=== PATIENT | male | born 1960 | race Caucasian/White ===

== ENCOUNTER → 2023-12-21 12:59 | Outpatient (REF) | payer OTHER, SELFPAY ==
[2023-12-21 13:09] VITALS: BP 148/78; BP_SYST 94
[2023-12-21 13:43] VITALS: BP 137/67
== END ==
LOC: RADI 12:59
PROVIDERS: ATTENDING PHYSICIAN Radiology Diagnostic Radiology; FAMILY PHYSICIAN Surgery
DX: Z43.6 Encounter for attention to other artificial openings of urinary tract (principal); N13.5 Crossing vessel and stricture of ureter without hydronephrosis
CPT/HCPCS: 50435; C1729; C1769

== ENCOUNTER → 2024-04-09 13:40 | Outpatient (REF) | payer OTHER, SELFPAY ==
[2024-04-09 14:08] VITALS: BP 136/68; BP_SYST 97
== END ==
LOC: RADI 13:40
PROVIDERS: ATTENDING PHYSICIAN Radiology Vascular & Interventional Radiology; FAMILY PHYSICIAN Family Medicine
DX: Z43.6 Encounter for attention to other artificial openings of urinary tract (principal); N13.5 Crossing vessel and stricture of ureter without hydronephrosis
CPT/HCPCS: 50435; C1729; C1769

== ENCOUNTER 2024-05-22 21:46 | Inpatient (IN) | payer OTHER, SELFPAY ==
[2024-05-22] VITALS (10 sets, daily range): BP systolic 111–179; BP diastolic 63–83; BMI 27.8; BMI 27.6
--- NOTE | 2024-05-22 14:18 | ED.GENMED ---
ED Provider Triage
<Giovana Arreola PA-C - Last Filed: 05/22/24 14:25>
-
Patient seen by provider in Triage?: Seen in Triage
Attestation: A medical screening examination has been initiated by a qualified medical provider. Based on the assessment performed at this time, it has been determined that an emergent medical condition may exist and the patient has been informed
that further medical evaluation and possible additional diagnostic testing may be needed.
HPI: 64yoM here with abdominal pain. Started at 2pm yesterday afternoon. Last BM 3 days ago. Vomiting 3-4x this morning. Believes he may have a bowel obstruction. Has a nephrostomy tube, output has been clear. Hx of rectal cancer s/p multiple colon
surgeries and colostomy placement. Hx of appendectomy.
GENERAL: Alert , in no apparent distress
EYE: No visual abnormalities.
NECK: Trachea midline
ENT: No visible abnormalities.
LUNGS: No acute respiratory distress
NEUROLOGICAL: Alert and oriented
SKIN: Skin intact. No visible changes.
MUSCULOSKELETAL: Moving extremities normally
PSYCH: Normal and appropriate interaction.
This is a medical evaluation conducted in person to initiate diagnostic evaluation and provide initial therapeutics. Please see further documentation by the treating clinician.
Temp is 103.1 here. Abdominal labs, lactate, and CT abdomen with IV/PO contrast ordered.
History of Present Illness
<Giovana Arreola PA-C - Last Filed: 05/22/24 14:25>
General
Chief Complaint: Abdominal Pain
Time Seen by Provider: 05/22/24 14:43
<Natasha Johnson NP - Last Filed: 05/22/24 22:04>
General
Source: patient
Exam Limitations: none
Nursing documentation reviewed up to this point in time: agreed with
History of Present Illness
History of Present Illness:
64-year-old male with history of A-fib with ablation, not anticoagulated, HTN, HLD, L nephrostomy tube (from radiation tx's damaging kidney/ureters), colostomy (rectal CA 1992), bowel obstruction 10 yrs ago, presents stating he had 04/10 abdominal
pain 2 p.m. yesterday for about an hour, took Dulcolax, no BM since. Last BM 3 days ago. Vomited once this a.m., fever 104 this a.m. and fast heart rate. Pain has subsided to now 10. Feels 'a little' nauseous but has chronic nausea and took Zofran
today 10 a.m.
Past History
<Giovana Arreola PA-C - Last Filed: 05/22/24 14:25>
Past History
ED Past Medical History: Asthma, Cancer (Colorectal CA, Prostate CA), HTN, Hypercholesterolemia and Other (Urinary retention, Self caths)
ED Past Surgical History: Appendectomy, Bowel resection (1993, Dr. Covarrubias at [facility]) and Other (Colostomy)
Social History
Tobacco: Non-smoker
Alcohol: Occasional
Drug: None
Personal:
Living: with family
Review of Systems
<Natasha Johnson [employer] - Last Filed: 05/22/24 22:04>
Review of Systems
Allergies reviewed?: Yes
All Other Systems: ROS reviewed and negative except as documented in HPI and ROS
Constitutional: Reports fever; Denies chills
EENT: Denies sore throat
Respiratory: Denies trouble breathing
Cardiac: Denies chest pain
ABD/GI: Reports abdominal pain, nausea, vomiting and constipated; Denies diarrhea
: Reports other (L nephrostomy draining well)
Musculoskeletal: Reports no symptoms
Skin: Reports no symptoms
Neurological: Reports no symptoms
Phy Exam
<Natasha Johnson [employer] - Last Filed: 05/22/24 22:04>
Physical Exam
Physical Exam:
GENERAL: No acute distress. A&Ox3.
CONSTITUTIONAL: Afebrile.
EYES: PERRL, conjunctivae normal
Neck: Supple
ENMT: moist mucus membranes, Pharynx nl
RESPIRATORY: Regular respirations, nonlabored, lungs clear.
CARDIOVASCULAR: Regular rate and rhythm, no murmurs, no rubs.
GI: Soft, mildly tender RLQ, hypoactive BS, colostomy with no stool.
: Nephrostomy draining jr urine
MUSCULOSKELETAL: Moves with ease. Well perfused. No edema
SKIN: Warm, dry, pink
PSYCH: Normal mood and affect. Well kept, interactive and appropriate
NEUROLOGIC: Awake, alert and oriented. No focal neurological deficits
Sepsis
<Giovana Arreola PA-C - Last Filed: 05/22/24 14:25>
Sepsis Screen
Sepsis Screen: Possible Sepsis
Date: 05/22/24
Time: 14:18
<Natasha Johnson [employer] - Last Filed: 05/22/24 22:04>
Sepsis Screening
Sepsis Assessment: Sepsis Ruled Out (SIRS)
Sepsis Screen
Sepsis Screen: Sepsis Ruled Out
Date: 05/22/24
Time: 22:04
Course
<Giovana Arreola PA-C - Last Filed: 05/22/24 14:25>
Orders/Labs/Results
Orders:
Orders
05/22/24 13:57
Electrocardiogram (*1) Urgent
Reason for Study: Abnormal EKG
EKG- Treatment ONCE
05/22/24 14:12
CR Chest - 2 Views Urgent
Comment:
Reason For Exam: suspected infection
05/22/24 14:20
Complete Blood Count/With Diff Urgent
Comprehensive Metabolic Panel Urgent
Lactic Acid Q4H
Comment: ON ICE, CANCEL 2ND ORDER IF FIRST LACTIC ACID LEVEL <2
Lipase Urgent
05/22/24 14:21
Iohexol [Omnipaque] See Protocol PO NOW STA
05/22/24 14:56
0.9% Sodium Chloride 1000 ml [Nss] 1,000 ml IV BOLUS
05/22/24 15:00
Acetaminophen [Tylenol] 1,000 mg PO NOW STA
05/22/24 15:23
Blood Culture Urgent
SHAYY Source: Blood/Venous
Specimen Description:
05/22/24 15:51
CT Abd/pel Without Iv Or Oral Urgent
Comment:
Reason For Exam: abd pain RLQ, colostomy, nephrostomy, hx obstructi
05/22/24 18:03
Blood Culture Urgent
SHAYY Source: Blood/Venous
Specimen Description:
05/22/24 19:18
Ondansetron Injectable [Zofran] 8 mg IV NOW STA
05/22/24 19:40
Urinalysis Reflex To Culture Urgent
Date Specimen was Collected: 05/22/24
Time Specimen was Collected: 19:32
Comment: pt. has nephrostomy, captured from exit pt. from pt. body, that's why small
Urine Microscopic Reflex Cult Urgent
Urine Culture Urgent
SHAYY Source: U
Specimen Description:
Date Specimen was Collected: 05/22/24
Time Specimen was Collected: 19:32
05/22/24 20:19
CefTRIAXone [Rocephin] 1,000 mg IV NOW STA
05/22/24 21:17
Admit/Transfer Patient As Directed
Co-Sign Provider:
Level of Care: Inpatient admission
Assign to:: Medical/Surgical
Physician / Group: helio
Diagnosis: pyelonehritis
Reason for Hospitalization: pyelonehritis
Expected length of stay greater than two midnights?: Yes
ELOS- Estimated Length of Stay in days: 2
I certify the patient meets the requirements for IP care: Yes
Code Status As Directed
Resuscitation Status: Full Code
PRN Pain Medication Management As Directed
May give lesser potent ordered pain med per pt: Yes
preference::
Protocol:: Medication orders for pain may be administered in a
manner that supports deferring to patient preference
when the pt is:
- Requesting an ordered lesser potent pain medication.
Least to most potent pain medications are defined
as: acetaminophen < NSAID < tramadol < opioids
(morphine, oxycodone, hydromorphone).
- Requesting a lesser dose of the same medication IF
ORDERED.
- Requesting a less intrusive route of administration
if both routes are prescribed by the provider (PO <
IV).
Abnormal Lab Results
05/22/24 05/22/24
14:20 19:40
WBC 21.7 H 10^3/uL
(4.8-10.8)
RBC 3.84 L 10^6/uL
(4.70-6.10)
Hgb 10.3 L g/dL
(13.0-18.0)
Hct 31.8 L %
(39.0-52.0)
MCH 26.8 L pg
(27.0-31.0)
MCHC 32.4 L g/dL
(33.0-37.0)
RDW 14.9 H %
(11.5-14.5)
Abs Immat Gran (auto) 0.2 H 10^3/uL
(0-0.05)
Absolute Neuts (auto) 18.9 H 10^3/uL
(1.4-6.5)
Absolute Lymphs (auto) 0.8 L 10^3/uL
(1.2-3.4)
Absolute Monos (auto) 1.8 H 10^3/uL
(0.1-0.6)
Immature Gran % 0.7 H %
(0-0.5)
Neutrophils % 87.3 H %
(42.2-75.2)
Lymphocytes % 3.6 L %
(20.5-51.1)
Potassium 5.3 H mmol/L
(3.5-5.1)
BUN 36 H mg/dl
(9-20)
Creatinine 2.1 H mg/dL
(0.7-1.3)
Glucose 168 H mg/dl
(70-99)
Ur Occult Blood Reflex 4+ A
(Negative)
Leukocyte Esterase Rfl 2+ A
(Negative)
Urine RBC 3-6 A /HPF
(0-2)
Urine WBC (Reflex) 11-15 A /HPF
(0-5)
Urine Bacteria (Reflex) Few A
(Negative)
Urine Albumin (Reflex) 2+ A
(Neg - Trace)
05/22/24 14:20
05/22/24 14:20
Vital Signs
Initial and Last Documented VS:
Initial Vital Signs
Temp Pulse Resp BP Pulse Ox
103.1 F H 96 16 134/76 90
05/22/24 14:07 05/22/24 14:07 05/22/24 14:07 05/22/24 14:07 05/22/24 14:07
Last Documented Vital Signs
Temp Pulse Resp BP Pulse Ox
98.4 F 75 13 123/64 95
05/22/24 19:30 05/22/24 20:00 05/22/24 20:00 05/22/24 20:00 05/22/24 20:00
<Natasha Johnson, [employer] - Last Filed: 05/22/24 22:04>
Orders/Labs/Results
Orders:
Orders
05/22/24 13:57
Electrocardiogram (*1) Urgent
Reason for Study: Abnormal EKG
EKG- Treatment ONCE
05/22/24 14:12
CR Chest - 2 Views Urgent
Comment:
Reason For Exam: suspected infection
05/22/24 14:20
Complete Blood Count/With Diff Urgent
Comprehensive Metabolic Panel Urgent
Lactic Acid Q4H
Comment: ON ICE, CANCEL 2ND ORDER IF FIRST LACTIC ACID LEVEL <2
Lipase Urgent
05/22/24 14:21
Iohexol [Omnipaque] See Protocol PO NOW STA
05/22/24 14:56
0.9% Sodium Chloride 1000 ml [Nss] 1,000 ml IV BOLUS
05/22/24 15:00
Acetaminophen [Tylenol] 1,000 mg PO NOW STA
05/22/24 15:23
Blood Culture Urgent
SHAYY Source: Blood/Venous
Specimen Description:
05/22/24 15:51
CT Abd/pel Without Iv Or Oral Urgent
Comment:
Reason For Exam: abd pain RLQ, colostomy, nephrostomy, hx obstructi
05/22/24 18:03
Blood Culture Urgent
SHAYY Source: Blood/Venous
Specimen Description:
05/22/24 19:18
Ondansetron Injectable [Zofran] 8 mg IV NOW STA
05/22/24 19:40
Urinalysis Reflex To Culture Urgent
Date Specimen was Collected: 05/22/24
Time Specimen was Collected: 19:32
Comment: pt. has nephrostomy, captured from exit pt. from pt. body, that's why small
Urine Microscopic Reflex Cult Urgent
Urine Culture Urgent
SHAYY Source: U
Specimen Description:
Date Specimen was Collected: 05/22/24
Time Specimen was Collected: 19:32
05/22/24 20:19
CefTRIAXone [Rocephin] 1,000 mg IV NOW STA
05/22/24 21:17
Admit/Transfer Patient As Directed
Co-Sign Provider:
Level of Care: Inpatient admission
Assign to:: Medical/Surgical
Physician / Group: helio
Diagnosis: pyelonehritis
Reason for Hospitalization: pyelonehritis
Expected length of stay greater than two midnights?: Yes
ELOS- Estimated Length of Stay in days: 2
I certify the patient meets the requirements for IP care: Yes
Code Status As Directed
Resuscitation Status: Full Code
PRN Pain Medication Management As Directed
May give lesser potent ordered pain med per pt: Yes
preference::
Protocol:: Medication orders for pain may be administered in a
manner that supports deferring to patient preference
when the pt is:
- Requesting an ordered lesser potent pain medication.
Least to most potent pain medications are defined
as: acetaminophen < NSAID < tramadol < opioids
(morphine, oxycodone, hydromorphone).
- Requesting a lesser dose of the same medication IF
ORDERED.
- Requesting a less intrusive route of administration
if both routes are prescribed by the provider (PO <
IV).
Abnormal Lab Results
05/22/24 05/22/24
14:20 19:40
WBC 21.7 H 10^3/uL
(4.8-10.8)
RBC 3.84 L 10^6/uL
(4.70-6.10)
Hgb 10.3 L g/dL
(13.0-18.0)
Hct 31.8 L %
(39.0-52.0)
MCH 26.8 L pg
(27.0-31.0)
MCHC 32.4 L g/dL
(33.0-37.0)
RDW 14.9 H %
(11.5-14.5)
Abs Immat Gran (auto) 0.2 H 10^3/uL
(0-0.05)
Absolute Neuts (auto) 18.9 H 10^3/uL
(1.4-6.5)
Absolute Lymphs (auto) 0.8 L 10^3/uL
(1.2-3.4)
Absolute Monos (auto) 1.8 H 10^3/uL
(0.1-0.6)
Immature Gran % 0.7 H %
(0-0.5)
Neutrophils % 87.3 H %
(42.2-75.2)
Lymphocytes % 3.6 L %
(20.5-51.1)
Potassium 5.3 H mmol/L
(3.5-5.1)
BUN 36 H mg/dl
(9-20)
Creatinine 2.1 H mg/dL
(0.7-1.3)
Glucose 168 H mg/dl
(70-99)
Ur Occult Blood Reflex 4+ A
(Negative)
Leukocyte Esterase Rfl 2+ A
(Negative)
Urine RBC 3-6 A /HPF
(0-2)
Urine WBC (Reflex) 11-15 A /HPF
(0-5)
Urine Bacteria (Reflex) Few A
(Negative)
Urine Albumin (Reflex) 2+ A
(Neg - Trace)
05/22/24 14:20
05/22/24 14:20
Vital Signs
Initial and Last Documented VS:
Initial Vital Signs
Temp Pulse Resp BP Pulse Ox
103.1 F H 96 16 134/76 90
05/22/24 14:07 05/22/24 14:07 05/22/24 14:07 05/22/24 14:07 05/22/24 14:07
Last Documented Vital Signs
Temp Pulse Resp BP Pulse Ox
98.4 F 75 13 123/64 95
05/22/24 19:30 05/22/24 20:00 05/22/24 20:00 05/22/24 20:00 05/22/24 20:00
<Natashahilda Johnson NP - Last Filed: 05/22/24 22:04>
MDM/Problems Addressed
Differential Diagnosis Includes:
bowel obstruction, SIRS,
kidney stone, UTI
MDM/Problems Addressed:
64-year-old male with history of A-fib with ablation, not anticoagulated, HTN, HLD, L nephrostomy tube (from radiation tx's damaging kidney/ureters), colostomy (rectal CA 1992), bowel obstruction 10 yrs ago, presents stating he had /10 abdominal
pain 2 p.m. yesterday for about an hour, took Dulcolax, no BM since. Last BM 3 days ago. Vomited once this a.m., fever 104 this a.m. and fast heart rate. Pain has subsided to now 3/10. Feels 'a little' nauseous but has chronic nausea and took Zofran
today 10 a.m.
Temp 103.1 HR 96
Alert, NAD
CBC: WBC 21.7 w elevated neutrophils
CMP: BUN/creat 36/2.[address] abdomen pelvis changed to p.o. contrast only due to kidney functions. IV fluids infusing.
CXR NAD
5:50 [address]
Pt [address] to CT scan
CT scan radiology report read: IMPRESSION:
There is moderate right-sided hydroureteronephrosis extending to the level of the presacral soft tissue/scarring. There is no obstructing stone visualized.
Left sided percutaneous nephrostomy with tip in the inferior calyx. No left sided hydronephrosis.
Distended gallbladder without CT findings of acute cholecystitis.
Pt prefers to void for U/A he does not want us to use his nephrostomy bag urine
He is unable to void
Bladder scan shows minimal urine in bladder.
7:30 p.m.
Urine obtained from proximal nephrostomy tube and sent
8:20 p.m.
Defervesced T 98.4
Pain free
U/A with RBCs
Plan: Admit: most likely passed kidney stone. Acute renal Insufficiency, SIRS, IV antibiotics
Hospitalist notified of admission.
Case discussed with Dr. Rabago who agrees with assessment and plan
<Natasha Johnson NP - Last Filed: 05/22/24 22:04>
*Critical Care Note
Total Time (30-74mins, 75-104mins- exclusive of procedures): Not Applicable
ED Attending Note
<Giovana Arreola PA-C - Last Filed: 05/22/24 14:25>
-
Portions of this chart may have been created with voice recognition software.� Occasional wrong word or��sound alike� substitutions may have occurred due to the inherent limitations of voice recognition software.
Discharge Plan
Departure
Patient Disposition: Admit
Date of Disposition: 05/22/24
Time of Disposition: 20:23
Admit to: Med/Surg
Presentation/result/management discussed w/ accepting MD/DO: Hospitalist
Condition: Good
Discharge Problem:
SIRS (systemic inflammatory response syndrome), Hydronephrosis of right kidney, Acute kidney insufficiency
Interventions
Interventions:
*Risk Screen - Suicide Last Done: 05/22/24 14:07
*General Assessment Last Done: 05/22/24 14:07
*Neglect/Abuse Screening Last Done: 05/22/24 14:07
ED- Fall Risk Assessment Last Done: 05/22/24 16:05
GK-Ejgxpj-Anphurxlxg Assessment Last Done: 05/22/24 16:02
[2024-05-22 14:32] LABS: % Basophils 0.2 % (0-2); % Immature Granulocytes 0.7 % (0-0.5); % Lymphocytes 3.6 % (20.5-51.1); % Monocytes 8.2 % (1.7-9.3); % Neutrophils 87.3 % (42.2-75.2); Absolute Immature Granulocytes 0.2 10^3/uL (0-0.05); Absolute Lymphocytes 0.8 10^3/uL (1.2-3.4); Absolute Monocytes 1.8 10^3/uL (0.1-0.6); Absolute Neutrophils 18.9 10^3/uL (1.4-6.5); Hematocrit 31.8 % (39.0-52.0); Hemoglobin 10.3 g/dL (13.0-18.0); Mean Corp Hgb Conc. 32.4 g/dL (33.0-37.0); Mean Corpuscular Hgb 26.8 pg (27.0-31.0); Mean Corpuscular Volume 82.8 fL (80.0-94.0); Nucleated Red Blood Cells % 0 % (-); Platelet Count 205 10^3/uL (130-400); Red Blood Cell Count 3.84 10^6/uL (4.70-6.10); Red Cell Dist. Width 14.9 % (11.5-14.5); White Blood Cell Count 21.7 10^3/uL (4.8-10.8)
[2024-05-22 14:44] LABS: Lactic Acid 1.3 mmol/L (0.7-2.0)
[2024-05-22 14:51] LABS: ALT (SGPT) 16 U/L (0-50); AST (SGOT) 19 U/L (17-59); Albumin 4.1 g/dl (3.5-5.0); Alkaline Phosphatase 96 U/L (38-126); Blood Urea Nitrogen 36 mg/dl (9-20); Calcium 9.3 mg/dl (8.4-10.2); Carbon Dioxide 24 mmol/L (22-30); Chloride 98 mmol/L (98-107); Estimated Creatinine Clearance 38 ml/min; Glucose 168 mg/dl (70-99); Potassium 5.3 mmol/L (3.5-5.1); Sodium 136 mmol/L (135-145); Total Bilirubin 0.9 mg/dl (0.2-1.3); Total Protein 7.9 g/dl (6.3-8.2); eGFR 34.29
[2024-05-22] MEDS: OMNIPAQUE 50 ML PO (15:06)
[2024-05-22] MEDS: TYLENOL 1000 MG PO (15:08)
[2024-05-22 15:16] LABS: Lipase 47 U/L (23-300)
[2024-05-22] MEDS: NSS 1000 IV ×2 (15:21→23:09)
[2024-05-22] MEDS: ZOFRAN 8 MG IV (19:34)
[2024-05-22 19:58] LABS: Urine Albumin 2+ (Neg - Trace); Urine Bilirubin Negative (Negative); Urine Character Clear (Clear); Urine Color Yellow; Urine Glucose Negative (Negative); Urine Ketone Negative (Negative); Urine Leukocyte 2+ (Negative); Urine Nitrite Negative (Negative); Urine Occult Blood 4+ (Negative); Urine Urobilinogen Negative (Neg - 1+)
[2024-05-22 20:17] LABS: Urine Bacteria Few (Negative)
[2024-05-22] MEDS: ROCEPHIN 1000 MG IV (20:20)
--- NOTE | 2024-05-22 21:21 | HPS.HSE ---
Addendum entered and electronically signed by Ann Marie Marsh MD 05/22/24 21:51:
Urology recommends checking UA from penis.
Original Note:
Family Physician
-
Family Physician: Jackie Toro
Chief Complaint
-
fever
History of Present Illness
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
with left nephrostomy tube, atrial fibrillation status post ablation, hypertension, anemia, asthma presenting with right lower quadrant abdominal pain starting yesterday afternoon. He denies radiation to the back or groin. He denies history of
kidney stones. He has fevers and chills. He had 3-4 episodes of vomiting this morning. Output from nephrostomy tube has been clear. He has not had stool from colostomy in 3 days which is normal for him. He reports that urine from the penis has
been cloudy.
He denies chest pain or shortness of breath.
Denies smoking or alcohol use.
Medical History
Past Medical History
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
left nephrostomy tube, atrial fibrillation status post ablation, hypertension, anemia, a)
Past Surgical History: Reports Other ( Appendectomy, Bowel resection (1993, Dr. Covarrubias at [facility]) and Other (Colostomy))
Social History
Tobacco: Non-smoker
Alcohol: None
Drug: None
Family History
Family History: Not pertinent
Allergies / Home Medications
Allergies reflects when Allergies were last updated in [facility].
Home Medications with original date entered in [facility]
Allergy/Medication List:
Allergies
Allergy/AdvReac Type Severity Reaction Status Date / Time
wheat Allergy Unknown Shortness Verified 05/22/24 14:07
of Breath
Beef Containing Products Allergy Unknown Verified 05/22/24 14:07
grass pollen Allergy Unknown Verified 05/22/24 14:07
ibuprofen [Ibuprofen] Allergy BLEEDING Verified 05/22/24 14:07
mold Allergy Unknown Verified 05/22/24 14:07
Home Medications
polyethylene glycol 3350 17 gram oral powder packet 17 grams PO BIDPRN PRN constipation 05/02/21
albuterol sulfate 90 mcg/actuation aerosol inhaler (Ventolin HFA) 1 puff inhalation Q6HPRN PRN SOB 08/06/21
oxycodone-acetaminophen 10 mg-325 mg tablet 1 tab PO Q8HPRN PRN severe pain 12/07/22
amitriptyline 10 mg tablet 10 mg PO HSPRN PRN depression 05/22/24
cholecalciferol (vitamin D3) 50 mcg (2,000 unit) tablet (Vitamin D3) 50 mcg PO DAILY 05/22/24
lactulose 10 gram/15 mL oral solution 10 g PO DAILYPRN PRN constipation 05/22/24
magnesium hydroxide 400 mg/5 mL oral suspension (Dulcolax (magnesium hydroxide)) 400 mg PO Q4HPRN PRN constipation 05/22/24
metoprolol tartrate 25 mg tablet 25 mg PO DAILYPRN PRN heartrate 05/22/24
ondansetron 8 mg disintegrating tablet 16 mg PO [id number] PRN nausea 05/22/24
oxycodone 40 mg tablet,crush resistant,extended release 12 hr (OxyContin) 40 mg PO BID 05/22/24
therapeutic multivitamin 1 tab PO DAILYPRN PRN supplement 05/22/24
Review of Systems
-
History Source: Patient
A 12 point ROS was completed and negative except as noted: Yes
Constitutional: Reports No Symptoms
EENT: Reports No Symptoms
Respiratory: Reports No Symptoms
Cardiac: Reports No Symptoms
Abdomen/GI: Reports No Symptoms
: Reports See HPI
Musculoskeletal: Reports No Symptoms
Skin: Reports No Symptoms
Neurological: Reports No Symptoms
Endocrine: Reports No Symptoms
Hematologic/Lymphatic: Reports No Symptoms
Psych: Reports No Symptoms
Physical Exam
Vital Signs
Vital Signs
Temp Pulse Resp BP Pulse Ox
98.4 F 75 13 123/64 95
05/22/24 19:30 05/22/24 20:00 05/22/24 20:00 05/22/24 20:00 05/22/24 20:00
Physical Exam
General: Well Developed, Well Nourished and No Apparent Distress
HEENT: NormoCephalic, Moist mucous membranes and Atraumatic
Respiratory: Clear
Cardiac: S1/S2 and Regular Rhythm; No Murmur or Rub
GI: Soft, Non Tender, Non Distended and Normal Bowel Sounds; No Organomegaly
Rectal: Deferred by Provider
Genito-urinary: Other (RLQ tenderness )
Musculoskeletal: No Clubbing, No Cyanosis and No Edema
Skin: No Rash
Neuro: Nonfocal/grossly intact
Laboratory Results
-
05/22/24 14:20
05/22/24 14:20
Laboratory Results
Lactic Acid Cancelled 05/22/24 18:15
Total Bilirubin 0.9 mg/dl (0.2-1.3) 05/22/24 14:20
AST 19 U/L (17-59) 05/22/24 14:20
ALT 16 U/L (0-50) 05/22/24 14:20
Alkaline Phosphatase 96 U/L (38-126) 05/22/24 14:20
Lipase 47 U/L (23-300) 05/22/24 14:20
Data Reviewed
-
Lab Data: Labs Reviewed by me
Old Records: Reviewed
Impression/Plan
-
IMPRESSION:
PLAN:
# Sepsis (fever, tachycardia, leukocytosis) secondary to right-sided pyelonephritis/possible passed right-sided ureteral stone
-CT abdomen pelvis shows moderate right-sided hydroureteronephrosis extending to the level of the presacral soft tissue/scarring without obstructing stone
-Urinalysis from left nephrostomy tube shows 11-15 WBC, +2 leukocyte Estrace
-Check blood cultures
-IV fluids
-Ceftriaxone
-Urology consulted
# Acute kidney injury secondary to prerenal/sepsis
# Hyperkalemia
-Creatinine of 2.1
-IV fluids
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
-He does not appear to to have infection of the left urinary tract
Colorectal cancer status post colectomy with colostomy
Chronic pain
-Continue Percocet
Constipation
-Continue MiraLAX
Atrial fibrillation status post ablation
-Continue metoprolol
Essential hypertension
Chronic anemia
Asthma
-Continue albuterol
Anxiety/depression
-Continue amitriptyline
Full code
DVT prophylaxis�heparin
Regular diet
--- NOTE | 2024-05-22 23:00 | PTCARENOTE ---
Patient arrived from the ED via stretcher. Patient ambulated into the room. AAOx3, VSS. Pressure elevated, temperature orally 103.0 F. Given Tylenol for fever. Patient c/o RLQ abdominal pain. Given PRN pain medication, see MAR. Patient oriented to
the room, call niño is within reach.
[2024-05-22] MEDS: DILAUDID 0.5 MG IV (23:09)
[2024-05-22] MEDS: ELAVIL 10 MG PO (23:09)
[2024-05-22] MEDS: TYLENOL 650 MG PO (23:09)
[2024-05-23] VITALS (12 sets, daily range): BP systolic 84–217; BP diastolic 59–93
[2024-05-23] MEDS: DILAUDID 0.5 MG IV ×3 (03:11→13:45)
[2024-05-23 03:58] LABS: Urine Albumin 3+ (Neg - Trace); Urine Bilirubin Negative (Negative); Urine Character Very Cloudy (Clear); Urine Glucose Negative (Negative); Urine Ketone 1+ (Negative); Urine Leukocyte 2+ (Negative); Urine Nitrite Negative (Negative); Urine Occult Blood 3+ (Negative); Urine Specific Gravity 1.015 (<1.030); Urine Urobilinogen Negative (Neg - 1+)
[2024-05-23 04:04] LABS: Urine Color Brown
[2024-05-23 04:11] LABS: Urine Bacteria Many (Negative); Urine White Cell >100 /HPF (0-5)
[2024-05-23] MEDS: ROXICODONE 10 MG PO ×2 (04:47→14:41)
[2024-05-23] MEDS: TYLENOL 325 MG PO ×2 (04:47→14:41)
[2024-05-23] MEDS: HEPARIN 5000 UNITS SC ×2 (07:42→21:56)
[2024-05-23] MEDS: OXYCONTIN (CONTROLLED RELEASE) 40 MG PO ×2 (07:43→21:56)
[2024-05-23] MEDS: VITAMIN D3 (cholecalciferol) 50 MCG PO (07:43)
--- NOTE | 2024-05-23 08:03 | W.PN.HOSP.TC ---
Today's Communication/Plan
-
Continue antibiotics, follow cultures, for right PCN tube placement soon by IR
Assessment / Plan
Assessment / Plan
Physical Exam
General: Well Developed, Well Nourished and No Apparent Distress
HEENT: Normocephalic, Moist mucous membranes
Respiratory: Clear
Cardiac: S1/S2 and Regular Rhythm
GI: Soft, Non Tender, Non Distended and Normal Bowel Sounds
Genito-urinary: No CVA tenderness
Musculoskeletal: No Cyanosis and No Edema
Skin: Warm. Dry.
Neuro: Nonfocal/grossly intact
Assessment/Plan
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
nephrostomy tube, here for sepsis secondary to presumed pyelonephritis of right kidney. CT imaging showed right hydroureteronephrosis without obstructing stone presumably passed stone. IV fluids, blood culture, urine culture, ceftriaxone, urology
consulted.
#Sepsis (fever, tachycardia, leukocytosis) secondary to right-sided pyelonephritis/possible passed right-sided ureteral stone
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
#Significant Right Renal Obstruction
-CT abdomen pelvis showed moderate right-sided hydroureteronephrosis extending to the level of the presacral soft tissue/scarring without obstructing stone
-Urinalysis from left nephrostomy tube shows 11-15 WBC, +2 leukocyte Estrace
-Follow blood and urine cultures
-IV fluids
-Continue Ceftriaxone
-Urology consulted, appreciate their evaluation and recommendations
-IR consulted, awaiting right PCN placement
# Acute kidney injury secondary to right-sided renal obstruction/sepsis
# Hyperkalemia
-Creatinine of 2.1-->2.4
-IV fluids
-PCN placement to be done as above
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
Colorectal cancer status post colectomy with colostomy
Chronic pain
-Continue Percocet
Constipation
-Continue MiraLAX
Atrial fibrillation status post ablation
-Continue metoprolol
Essential hypertension
Chronic anemia
Asthma
-Continue albuterol
Anxiety/depression
-Continue amitriptyline
Full code
DVT prophylaxis�Heparin
Regular diet
Anticipated Discharge: 24 - 48 hours
Subjective/Interval History
-
Date of Service: May 23, 2024
Patient was seen and examined. He reported feeling 'lousy' according to him, denied any other new significant complaints.
Objective Data
-
Labs:
Laboratory Results
05/23/24
07:23
WBC Pending
Hgb Pending
Hct Pending
Plt Count Pending
Sodium Pending
Potassium Pending
Chloride Pending
Carbon Dioxide Pending
BUN Pending
Creatinine Pending
Glucose Pending
Calcium Pending
Total Bilirubin Pending
AST Pending
ALT Pending
Alkaline Phosphatase Pending
Vital Signs:
Vital Signs
Temp Pulse Resp BP Pulse Ox
99.2 F 90 18 156/70 93
05/23/24 07:57 05/23/24 07:57 05/23/24 07:57 05/23/24 07:57 05/23/24 07:57
I&O
05/22/24 05/23/24 05/24/24
06:59 06:59 06:59
Intake Total 1280 / 1280
Output Total 420 / 420
Balance 860 / 860
[2024-05-23 08:40] LABS: % Basophils 0.1 % (0-2); % Immature Granulocytes 0.6 % (0-0.5); % Monocytes 11.4 % (1.7-9.3); % Neutrophils 81.9 % (42.2-75.2); Absolute Immature Granulocytes 0.1 10^3/uL (0-0.05); Absolute Lymphocytes 0.8 10^3/uL (1.2-3.4); Absolute Monocytes 1.6 10^3/uL (0.1-0.6); Absolute Neutrophils 11.2 10^3/uL (1.4-6.5); Hematocrit 28.2 % (39.0-52.0); Hemoglobin 9.1 g/dL (13.0-18.0); Mean Corp Hgb Conc. 32.3 g/dL (33.0-37.0); Mean Corpuscular Hgb 27.7 pg (27.0-31.0); Mean Corpuscular Volume 85.7 fL (80.0-94.0); Nucleated Red Blood Cells % 0 % (-); Red Blood Cell Count 3.29 10^6/uL (4.70-6.10); Red Cell Dist. Width 15.3 % (11.5-14.5); White Blood Cell Count 13.7 10^3/uL (4.8-10.8)
[2024-05-23] MEDS: NSS 1000 IV ×2 (08:55→20:56)
--- NOTE | 2024-05-23 08:55 | CONS.URO ---
Consultation
-
Performing Provider: Peffer
Reason for Consultation: Hydronephrosis, sepsis
Medical History
History of Present Illness
The patient is a 61-year-old male with
a complex prior urologic and oncologic history. He has a history of
colon cancer, status post colectomy and colostomy around 18 years ago,
history of prostate cancer, status post aborted radical
prostatectomy at [facility], subsequently treated with radiation, history
of urinary retention and left hydronephrosis, status post
transurethral resection of prostate following radiation treatment,
now with chronic incontinence and chronic left
hydronephrosis/ureteral obstruction in 2020
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
stable on imaging studies for past several years and no evidence of prostate cancer recurrence
Since 2020 has had indwelling L ureteral stent for obstruction of the L distal ureter
Was found to be a poor candidate for ureteral reconstruction with consultation with Dr. Rose at [facility]
He is now presenting with R abdominal pain for 2 days, developed fevers and chills
He denies radiation to the back or groin
He had 3-4 episodes of vomiting this morning.
Output from nephrostomy tube has been clear. He has not had stool from colostomy in 3 days which is normal for him.
He reports that urine from the penis has been cloudy, thick, and significantly lower volume than normal
Past Medical History
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
nephrostomy tube, atrial fibrillation status post ablation, hypertension, anemia)
Past Surgical History: Other (Appendectomy, Bowel resection (1993, Dr. Covarrubias at [facility])(Colostomy))
Social History
Tobacco: Non-smoker
Alcohol: None
Drug: None
Family History
Family History: Reviewed & Not Pertinent
Allergies/Home Medications
Allergies
Allergy/AdvReac Type Severity Reaction Status Date / Time
wheat Allergy Unknown Shortness Verified 05/22/24 14:07
of Breath
Beef Containing Products Allergy Unknown Verified 05/22/24 14:07
grass pollen Allergy Unknown Verified 05/22/24 14:07
ibuprofen [Ibuprofen] Allergy BLEEDING Verified 05/22/24 14:07
mold Allergy Unknown Verified 05/22/24 14:07
Home Medications
�Medication �Instructions �Recorded �Confirmed �Type
polyethylene glycol 3350 17 gram 17 grams PO BIDPRN PRN constipation 05/02/21 05/22/24 History
oral powder packet
albuterol sulfate 90 mcg/actuation 1 puff inhalation Q6HPRN PRN SOB 08/06/21 05/22/24 History
aerosol inhaler (Ventolin HFA)
oxycodone-acetaminophen 10 mg-325 1 tab PO Q8HPRN PRN severe pain 12/07/22 05/22/24 History
mg tablet
amitriptyline 10 mg tablet 10 mg PO HSPRN PRN depression 05/22/24 05/22/24 History
cholecalciferol (vitamin D3) 50 50 mcg PO DAILY 05/22/24 05/22/24 History
mcg (2,000 unit) tablet (Vitamin
D3)
lactulose 10 gram/15 mL oral 10 g PO DAILYPRN PRN constipation 05/22/24 05/22/24 History
solution
magnesium hydroxide 400 mg/5 mL 400 mg PO Q4HPRN PRN constipation 05/22/24 05/22/24 History
oral suspension (Dulcolax
(magnesium hydroxide))
metoprolol tartrate 25 mg tablet 25 mg PO DAILYPRN PRN heartrate 05/22/24 05/22/24 History
ondansetron 8 mg disintegrating 16 mg PO [id number] PRN nausea 05/22/24 05/22/24 History
tablet
oxycodone 40 mg tablet,crush 40 mg PO BID 05/22/24 05/22/24 History
resistant,extended release 12 hr
(OxyContin)
therapeutic multivitamin 1 tab PO DAILYPRN PRN supplement 05/22/24 05/22/24 History
Physical Exam
Vital Signs
Vital Signs
Temp Pulse Resp BP Pulse Ox
99.2 F 90 18 156/70 93
05/23/24 07:57 05/23/24 07:57 05/23/24 07:57 05/23/24 07:57 05/23/24 07:57
Lab / Testing Results
Laboratory Results
05/23/24 07:23
Physical Exam
General: Well Developed, Well Nourished and No Apparent Distress
Respiratory: Clear and Non Labored Respirations
GI: Soft, Non Tender and Other (ostomy)
Genito-urinary: Costovertebral Angle Tend and Other (L PCN in place, clear)
Skin: Warm and Dry
Neuro: AO x 3
Psych: Calm and Intact Judgement
Assessment / Plan
-
64M history of 61-year-old male with prostate cancer and residual pelvic fixation/scarring from prostate radiation, colon cancer and colon resection,
Chronic L nephrostomy due to ureteral stricture related to the above
now with R hydronephrosis, sepsis, ABRAM, decreased output from R kidney, most likely a new manifestation of the same chronic inflammatory process
- Given significant R renal obstruction and sepsis, recommend placement of R nephrostomy tube today by IR. Consult placed and notified
- Continue broad spectrum abx pending cultures
- Cultures from voided urine and L PCN pending
- Discharge with both nephrostomy tubes in place for further discussion with Dr. Cuba
Data Reviewed
-
CT Scan: Image personally visualized and interpreted
Lab Data: Labs Reviewed
[2024-05-23] MEDS: DUPHALAC/CHRONULAC 10 GRAMS PO (09:05)
[2024-05-23] MEDS: TYLENOL 650 MG PO ×2 (10:25→17:23)
--- NOTE | 2024-05-23 10:37 | W.PN.UPDATE ---
Update Note
Progress Note Update
Patient w/ complicated urologic history as noted in consultation note.
Spouse (Madina) wished to discuss urologic recommendation for right PCN placement scheduled tentatively w/ IR today.
Patient presenting with ABRAM, urosepsis, right hydroureteronephrosis (new).
Reviewed plan for right PCN placement to relieve obstructive uropathy suspected secondary to inflammatory changes from extensive h/o radiation and pelvic surgery.
CT imaging reviewed on phone w/ spouse.
Plan:
- Continue IV antibiotics pending UCx/BCx
- Please send UCx at time of right PCN placement
- To IR for right PCN placement
D/w spouse (Madina) and patient this AM.
[2024-05-23 11:07] LABS: Mean Platelet Volume 9.7 fL (7.4-10.4); Platelet Count 162 10^3/uL (130-400)
[2024-05-23 11:32] LABS: ALT (SGPT) 13 U/L (0-50); AST (SGOT) 19 U/L (17-59); Albumin 3.6 g/dl (3.5-5.0); Alkaline Phosphatase 81 U/L (38-126); Blood Urea Nitrogen 42 mg/dl (9-20); Calcium 8.8 mg/dl (8.4-10.2); Carbon Dioxide 25 mmol/L (22-30); Chloride 98 mmol/L (98-107); Estimated Creatinine Clearance 34 ml/min; Glucose 128 mg/dl (70-99); Sodium 137 mmol/L (135-145); Total Bilirubin 0.5 mg/dl (0.2-1.3); eGFR 29.21
[2024-05-23] MEDS: ZOFRAN 4 MG IV ×2 (14:42→20:43)
[2024-05-23 16:04] LABS: PT 16.3 Sec (11.4-14.6)
--- NOTE | 2024-05-23 17:21 | CM ---
Chart reviewed.
Spoke with patient patient given choice, had [facility] in the past and requests the same.
Spoke with Bernice and referral placed in [facility]. Confirmed that [facility] can accept him
IMM letter was given in ED on .
Madina will drive him home.
PLAN: Home with [facility]
--- NOTE | 2024-05-23 19:33 | W.PN.UPDATE ---
Update Note
Progress Note Update
Right PCN placed, yielding 50 cc of grossly purulent fluid. Sent for C+S.
[2024-05-23] MEDS: ROCEPHIN 1000 MG IV (20:13)
[2024-05-23] MEDS: STERILE WATER FOR INJECTION 10 ML IV (20:13)
--- NOTE | 2024-05-23 20:35 | PTCARENOTE ---
Addendum entered by Marilyn Alonso RN 05/23/24 23:46:
EKG showed Sinus Tachycardia. No c/o heart palpitations or chest pain.
Original Note:
Patient received from IR. Right nephrostomy tube dressing intact. Draining serosanguineous fluid into the bag. Left nephrostomy dressing intact draining dark clear yellow urine. Pt febrile at 103.1. HR 130s, BP elevated. Patient SOB. Placed on 2L O2
satting at 93%. Patient visibly tremulous. Patient AAOx3. No c/o heart DATABASE ANALYST aware. Came to the floor to assess. Maintaining IVF. Ordered IV Ofirmev, see Mar. Call niño is within reach.
[2024-05-23] MEDS: OFIRMEV 100 IV (21:30)
[2024-05-23 22:10] LABS: Blood Urea Nitrogen 44 mg/dl (9-20); Calcium 8.7 mg/dl (8.4-10.2); Carbon Dioxide 22 mmol/L (22-30); Chloride 99 mmol/L (98-107); Estimated Creatinine Clearance 37 ml/min; Glucose 132 mg/dl (70-99); Magnesium 1.9 mg/dl (1.6-2.3); Potassium 4.7 mmol/L (3.5-5.1); Sodium 134 mmol/L (135-145); eGFR 32.43
[2024-05-24 03:00] VITALS: BP 123/65
[2024-05-24 07:14] VITALS: BP 142/80
[2024-05-24] MEDS: VITAMIN D3 (cholecalciferol) 50 MCG PO (07:36)
[2024-05-24] MEDS: HEPARIN 5000 UNITS SC ×2 (07:36→19:58)
[2024-05-24] MEDS: OXYCONTIN (CONTROLLED RELEASE) 40 MG PO ×2 (07:36→19:58)
[2024-05-24] MEDS: MILK OF MAGNESIA 5 ML PO (07:40)
[2024-05-24] MEDS: DUONEB 3 ML INH (08:01)
[2024-05-24] MEDS: NSS 1000 IV ×2 (09:58→23:34)
[2024-05-24 10:25] LABS: % Basophils 0.2 % (0-2); % Eosinophils 0.4 % (0-6); % Immature Granulocytes 0.3 % (0-0.5); % Lymphocytes 4.8 % (20.5-51.1); % Monocytes 7.3 % (1.7-9.3); Absolute Lymphocytes 0.5 10^3/uL (1.2-3.4); Absolute Monocytes 0.8 10^3/uL (0.1-0.6); Absolute Neutrophils 8.9 10^3/uL (1.4-6.5); Hematocrit 27.1 % (39.0-52.0); Hemoglobin 8.7 g/dL (13.0-18.0); Mean Corp Hgb Conc. 32.1 g/dL (33.0-37.0); Mean Corpuscular Hgb 27.2 pg (27.0-31.0); Mean Corpuscular Volume 84.7 fL (80.0-94.0); Nucleated Red Blood Cells % 0 % (-); Platelet Count 151 10^3/uL (130-400); Red Cell Dist. Width 15.5 % (11.5-14.5); White Blood Cell Count 10.2 10^3/uL (4.8-10.8)
[2024-05-24 11:28] LABS: Blood Urea Nitrogen 45 mg/dl (9-20); Calcium 8.5 mg/dl (8.4-10.2); Carbon Dioxide 24 mmol/L (22-30); Chloride 99 mmol/L (98-107); Estimated Creatinine Clearance 45 ml/min; Glucose 112 mg/dl (70-99); Potassium 4.9 mmol/L (3.5-5.1); Sodium 138 mmol/L (135-145); eGFR 41.26
[2024-05-24] MEDS: TYLENOL 650 MG PO ×2 (11:37→17:59)
[2024-05-24] MEDS: ZOFRAN 4 MG IV ×2 (11:40→18:27)
[2024-05-24] MEDS: DILAUDID 0.5 MG IV ×3 (11:40→22:13)
--- NOTE | 2024-05-24 11:52 | CON.GI ---
Addendum entered and electronically signed by Taran Adams MD 05/24/24 14:02:
I saw and examined the patient.
The FREIGHT LOADER or PA's note was reviewed and I agree with the note.
Comment: 64yo male presents with R abd pain, f/c, n/v. He has history of rectal CA 30 years ago s/p resection/end colostomy/XRT and unsuccessful reversal attempts. Also hx prostate CA, additional XRT and subsequent retroperitoneal fibrosis,
ureteral obstruction s/p indwelling L nephrostomy tube. CT shows moderate R hydroureteronephrosis and pt had R percutaneous nephrostomy tube placed yesterday. He reports no output from his colostomy bag last 4 days. He takes miralax daily to
promote stool output and he often does not have stool output for several days. He also uses lactulose, dulcolax and Mg citrate occasionally. Last colonoscopy in 2014 normal.
REC:
Decreased stool output does not seem too far off his baseline and maybe exacerbated by acute urologic issues
Resume miralax, can give BID to start
If no improvement, can add mg citrate or lactulose or dulcolax
No signs of obstruction on CT. Can check xray if no improvement
Original Note:
Consultation
-
Date/Time Consultation Requested: 05/24/24 1130
Date/Time Consultation Performed: 05/24/24 1215
Requesting Provider: Mikel Hubbard MD
Performing Provider: GUSTAVO Olivares, Taran Adams MD
Reason for Consultation: constipation
Medical History
Chief Complaint / HPI
Chief Complaint: constipation
History of Present Illness:
Pt is a 64yo present rectal CA with resection/colostomy failed reversal, Prostates CA with prior aborted radial prostatectomy at [place] with subsequent radiation, urinary retention, ureteral obstruction and left hydro with nephrostomy placement,
TURP, incontinence, HTN, hypercholesteremia, afib with prior ablation, asthma now presents with onset of abdominal pain with vomiting and fever 104 with concern for sepsis with noted right sided hydro possible passed stoned with ABRAM and
leukocytosis on admission. After admission pt went to right nephrostomy tube with purulent drainage. Asked to see for constipation and no stools for 4 days. In review with patient this is a chronic issues. He typically has a stool every 2-3
days. He will take Miralax daily and then add Dulcolax and lactulose as needed. He does not use enemas in ostomy. He also admit to chronic nausea daily and abdominal pain mostly on left side but noted with right sided pain on admission. Last
colonoscopy [address] Yusuf was normal. He was seen by Dr. Husain in September with concern for opioid induced constipation with no improvement with prior trial of Relistor or Movantik. He was scheduled for colonoscopy in November but did
cancel.
Past Medical History
Past Medical History: Arrhythmias (afib with prior ablation), Asthma, Cancer (rectal CA with resection, colostomy (with Dr. Beal at [place]) and radiation 30 years ago, prostate CA- s/p TURP with hormonal/radiation therapy follows at [facility]), HTN,
Hypercholesterolemia and Other (chronic pain , bladder stones, left hydro/stricture with chronic nephrostomy tube and right nephrostomy placed on admission, retroperitoneal fibrosis with hx radiation, chronic urinary incontinence, sacral cystic
mass, anemia )
Past Surgical History: Appendectomy, Bowel Resection (resection with rectal CA with colostomy attempted reversal without success. ), Cardiac (ablation) and Urological (TURP)
Social History
Tobacco: Non-Smoker
Alcohol: None
Drug: None
Personal:
Living: With Family
Employment: Retired
Family History
Family History: Other (father colorectal CA, brain bleed, mother emphysema, A1AT)
Allergies / Home Medications
Allergy/AdvReac Type Severity Reaction Status Date / Time
Beef Containing Products Allergy wheezing Verified 05/23/24 20:50
grass pollen Allergy sneezing Verified 05/23/24 20:50
ibuprofen [Ibuprofen] Allergy BLEEDING Verified 05/22/24 14:07
mold Allergy sneezing Verified 05/23/24 20:50
wheat Allergy Shortness Verified 05/23/24 20:50
of Breath
�Medication �Instructions �Recorded
polyethylene glycol 3350 17 gram 17 grams PO BIDPRN PRN constipation 05/02/21
oral powder packet
albuterol sulfate 90 mcg/actuation 1 puff inhalation Q6HPRN PRN SOB 08/06/21
aerosol inhaler (Ventolin HFA)
oxycodone-acetaminophen 10 mg-325 1 tab PO Q8HPRN PRN severe pain 12/07/22
mg tablet
amitriptyline 10 mg tablet 10 mg PO HSPRN PRN depression 05/22/24
cholecalciferol (vitamin D3) 50 50 mcg PO DAILY 05/22/24
mcg (2,000 unit) tablet (Vitamin
D3)
lactulose 10 gram/15 mL oral 10 g PO DAILYPRN PRN constipation 05/22/24
solution
magnesium hydroxide 400 mg/5 mL 400 mg PO Q4HPRN PRN constipation 05/22/24
oral suspension (Dulcolax
(magnesium hydroxide))
metoprolol tartrate 25 mg tablet 25 mg PO DAILYPRN PRN heartrate 05/22/24
ondansetron 8 mg disintegrating 16 mg PO [id number] PRN nausea 05/22/24
tablet
oxycodone 40 mg tablet,crush 40 mg PO BID 05/22/24
resistant,extended release 12 hr
(OxyContin)
therapeutic multivitamin 1 tab PO DAILYPRN PRN supplement 05/22/24
Review of Systems
-
History Source: Patient
Constitutional: Reports Fever (on admission)
EENT: Reports No Symptoms
Respiratory: Reports No Symptoms
Abdomen/GI: Reports Abdominal Pain (chronic left now with right sided pain), Nausea (chronic daily), Vomiting (prior to admission) and Constipated (chronic)
: Reports Difficulty Voiding (on admission with hx chronic left urostomy) and Other
Musculoskeletal: Reports No Symptoms
Skin: Reports No Symptoms
Neurological: Reports No Symptoms
Endocrine: Reports No Symptoms
Hematologic/Lymphatic: Reports No Symptoms
Vital Signs
Temp Pulse Resp BP Pulse Ox
101.1 F H 110 20 142/80 99
05/24/24 11:38 05/24/24 08:05 05/24/24 08:05 05/24/24 07:14 05/24/24 08:05
Physical Exam
Exam
General: Well Developed, Well Nourished and No Apparent Distress
HEENT: Normocephalic, Anicteric and Moist Mucous Membranes
Respiratory: Clear
Cardiac: Other (tachy)
GI: Soft, Non Distended, Tender (right lower quadrant ) and Other (colostomy with air in ostomy bag)
Musculoskeletal: No Clubbing and No Cyanosis
Neuro: Awake, Alert and AO x 3
Psych: Calm
Results
WBC 10.2 10^3/uL (4.8-10.8) 05/24/24 09:13
Hgb 8.7 g/dL (13.0-18.0) L 05/24/24 09:13
Hct 27.1 % (39.0-52.0) L 05/24/24 09:13
MCV 84.7 fL (80.0-94.0) 05/24/24 09:13
Plt Count 151 10^3/uL (130-400) 05/24/24 09:13
Absolute Neuts (auto) 8.9 10^3/uL (1.4-6.5) H 05/24/24 09:13
PT 16.3 Sec (11.4-14.6) H 05/23/24 15:45
INR 1.30 05/23/24 15:45
Sodium 138 mmol/L (135-145) 05/24/24 09:13
Potassium 4.9 mmol/L (3.5-5.1) 05/24/24 09:13
Chloride 99 mmol/L (98-107) 05/24/24 09:13
Carbon Dioxide 24 mmol/L (22-30) 05/24/24 09:13
BUN 45 mg/dl (9-20) H 05/24/24 09:13
Creatinine 1.8 mg/dL (0.7-1.3) H 05/24/24 09:13
Calcium 8.5 mg/dl (8.4-10.2) 05/24/24 09:13
Total Bilirubin 0.5 mg/dl (0.2-1.3) 05/23/24 09:04
AST 19 U/L (17-59) 05/23/24 09:04
ALT 13 U/L (0-50) 05/23/24 09:04
Alkaline Phosphatase 81 U/L (38-126) 05/23/24 09:04
Lipase 47 U/L (23-300) 05/22/24 14:20
Diagnostic Image Results:
05/22/24 CT abdomen pelvis
There is moderate right-sided hydroureteronephrosis extending to the level of the presacral soft tissue/scarring. There is no obstructing stone visualized.
Left sided percutaneous nephrostomy with tip in the inferior calyx. No left sided hydronephrosis.
Distended gallbladder without CT findings of acute cholecystitis.
Prior GI Procedures:
Colonoscopy: 06/2015 saroj The colon (entire examined portion) appeared normal.
Assessment / Plan
-
Pt is a 64yo present rectal CA with resection/colostomy failed reversal, Prostate CA with prior aborted radial prostatectomy at [place] with subsequent radiation, urinary retention, ureteral obstruction and left hydro with nephrostomy placement, TURP,
incontinence, HTN, hypercholesteremia, afib with prior ablation, asthma now presents with onset of abdominal pain with vomiting and fever 104 with concern for sepsis with noted right sided hydro possible passed stoned with ABRAM and leukocytosis on
admission. After admission pt went to right nephrostomy tube with purulent drainage. Asked to see for constipation and no stools for 4 days. In review with patient this is a chronic issues. He typically has a stool every 2-3 days. He will take
Miralax daily and then add Dulcolax and lactulose as needed. He does not use enemas in ostomy. He also admit to chronic nausea daily and abdominal pain mostly on left side but noted with right sided pain on admission. Last colonoscopy [address] Yusuf was normal. He was seen by Dr. Husain in September with concern for opioid induced constipation with no improvement with prior trial of Relistor or Movantik. He was scheduled for colonoscopy in November but did cancel.
-sepsis with fever/leukocytosis pyelonephritis/possible passed stone
-right sided abdominal pain on admission with hydro and placement of right nephrostomy tube
-constipation with hx chronic constipation
-ABRAM on admission
-rectal CA with resection/colonoscopy and radiation with failed reversal
-chronic pain with chronic narcotic use
other medical problems:
-prostate CA with aborted failed radial prostatectomy and radiation
-chronic left nephrostomy
--TURP
-incontinence
-afib with prior ablation
-asthma
-family hx colon CA
PLAN:
etiology of constipation likely chronic issues with hx retroperitoneal fibrosis, chronic narcotic use vs other and currently exacerbated with urologic issues ? ileus
currently not obstructed-- some chronic nausea but no vomiting and passing flatus in colostomy
will resume miralax BID
if not effective consider lactulose, mag citrate vs enema vs ostomy if continued issues
not improved with Relistor and Movantik in past
pt will need eventual colonoscopy for follow up as canceled in November
trend hbg
OP follow up with Dr. Husain
-
-
Thank you for consultation and allowing me to participate in the patient's care. Please call the [facility] during the after hours with any questions or concerns.
--- NOTE | 2024-05-24 12:30 | W.PN.URO.CBU ---
Today's Communication / Plan
-
Maintain bilateral PCNs to drainage
IV antibiotics pending Cx S/S
F/U with Dr. Cuba as outpatient - plan for outpatient CT imaging + antegrade nephrostogram to assess right ureteral anatomy
Likely chronic dependence on bilateral PCNs
Discussed in detail w/ patient and spouse.
Assessment / Plan
-
New right hydronephrosis - s/p right PCN
ABRAM - improving
Urosepsis
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
Prostate cancer s/p XRT (10/2018)
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
05/23: s/p right PCN placement by IR
WBC normalized
Cr 2.2 => 1.8
Diagnosis
-
Date of Service: May 24, 2024
-
Patient Diagnosis:
New right hydronephrosis
ABRAM
Urosepsis
Prostate cancer s/p XRT
Residual pelvic fixation and scarring from XRT x2, LAR
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
05/23: s/p right PCN placement by IR
Subjective
-
Mild nausea but able to tolerate clears.
Fatigued.
Scant output per urethra.
Right nephrostomy tea-colored, left nephrostomy clear.
Objective
-
Vital Signs
Temp Pulse Resp BP Pulse Ox
100.9 F H 94 20 136/69 96
05/24/24 14:25 05/24/24 15:19 05/24/24 15:19 05/24/24 15:19 05/24/24 15:19
Intake and Output
05/23/24 05/24/24 05/25/24
06:59 06:59 06:59
Intake Total 1280 / 1280 2905 / 2905
Output Total 420 / 420 1500 / 1500
Balance 860 / 860 1405 / 1405
Intake:
Oral fluids 480 / 480 480 / 480
IV fluids (Total) 800 / 800 2425 / 2425
NSS 125 / 125
Output:
Urinary Drain Output (Total) 400 / 400 1500 / 1500
Left Nephrostomy 400 / 400 1350 / 1350
Right Nephrostomy 150 / 150
Urine, Voided 20 / 20
Other:
How many times incontinent 1
MODERATE amount urine
How many times incontinent 1
SATURATED amount urine
Laboratory Results
05/24/24 09:13
05/24/24 09:13
Physical Exam
-
General - no acute distress
Abdomen - soft, non-tender, non-distended, bilateral PCNs in place
Genitalia - normal
Skin - warm & dry with no rash
Neuro - AOx3, no motor deficits
Extremities - no clubbing, no cyanosis, no edema
Care Review
Data Reviewed
Discussed with: Nursing and Family
CT Scan: Report Pers Reviewed and Image Pers Reviewed
--- NOTE | 2024-05-24 13:06 | PN.CDI ---
CDI
- -
CDI:
Physician Documentation Request
Admit Date: 05/22/24 21:46
Dear Doctor Haydee,
Please review the following and provide your response in the progress notes.
Clinical Indicators:
Pt admitted with sepsis secondary to pyelonephritis.
05/23 Progress Note: 'Atrial fibrillation status post ablation-Continue metoprolol.'
If possible, please provide further specificity regarding atrial fibrillation, such as:
Paroxysmal atrial fibrillation - terminates spontaneously or with intervention within 7 days of onset
Persistent atrial fibrillation - episodes of continuous AF that last more than 7 days and do not self-terminate
Permanent atrial fibrillation - when a decision has been made to accept the presence of AF and there is no further attempt to restore or maintain sinus rhythm
Other - please specify
Unable to further specify
Use of terms such as suspected, likely, concern for, or probable (associated with a specific diagnosis that is being evaluated, monitored, or treated as if it exists) are acceptable and can be coded in the inpatient setting, when documented at the
time of discharge.
Thank you,
Sylvia Ramirez RN, BSN
CDI Specialist
Available via [place] [employer]
Please use your independent medical judgment in providing your response.
[2024-05-24] MEDS: MIRALAX 17 GRAMS PO ×2 (14:03→19:58)
[2024-05-24 15:19] VITALS: BP 136/69
--- NOTE | 2024-05-24 15:30 | CON.ID ---
Consultation
-
Date/Time Consultation Requested: 05/24/2024 1130
Date/Time Consultation Performed: 05/24/2024 1523
Requesting Provider: Dr. Hubbard
Performing Provider: Dr. Arteaga
Reason for Consultation: Leukocytosis; complicated urinary tract infection
Chief Complaint / Past History
History of Present Illness
James Harley is a 64-year-old man with a significant past medical history of left nephrostomy tube secondary to obstructive uropathy from XRT being evaluated at the request of Dr. Hubbard in regards to a complicated urinary tract infection.
The patient presented to [facility] on 05/22 secondary to right-sided abdominal discomfort which began 1 day prior to admission. He reports vomiting at home, along with fever to 104 degrees. He reports chills. Additionally, he reported
purulent urine from the penis, along with intermittent urinary discomfort.
Workup in the ER revealed a marked leukocytosis. A CT scan revealed moderate right-sided hydroureteronephrosis, and the patient has had a right PCN placed. Purulent drainage was reported immediately after placement. Urine culture obtained at
admission is revealing a staphylococcal species, and Infectious Diseases is asked and upon further antimicrobial therapy.
Patient continues to report fever, although right abdominal discomfort has improved. He notes as an outpatient he has had intermittent urinary tract infections defined by some dysuria malodorous urine.
Past History
Additional Past Medical History:
A-fib
HTN
Dyslipidemia
Prostate cancer
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
Rectal CA (1992)
Hx bowel obstruction
Asthma
Additional Past Surgical History:
Appendectomy
Left nephrostomy tube
Bowel resection
Colostomy
Allergy History:
Beef Containing Products Allergy (Verified 05/23/24 20:50)
wheezing
grass pollen Allergy (Verified 05/23/24 20:50)
sneezing
ibuprofen [Ibuprofen] Allergy (Verified 05/22/24 14:07)
BLEEDING
mold Allergy (Verified 05/23/24 20:50)
sneezing
wheat Allergy (Verified 05/23/24 20:50)
Shortness of Breath
Medications Reviewed: Yes
Current Antibiotics:
Ceftriaxone 1 g IV every 24 hours
Social History
Tobacco: Non-Smoker
Alcohol: Occasional
Drug: None
Personal:
Living: With Family
Family History
Family History: Not Pertinent
Review of Systems
Vital Signs
Temp Pulse Resp BP Pulse Ox
100.9 F H 94 20 136/69 96
05/24/24 14:25 05/24/24 15:19 05/24/24 15:19 05/24/24 15:19 05/24/24 15:19
Physical Exam
Physical Exam
Constitutional: No Acute Distress, Comfortable and Non-toxic
Eyes: No Conjunctival Hemorrhage and Sclera Anicteric
Oral: No Thrush and No Ulcers
Cardiovascular: Regular Rate and S1/S2; Negative S3/S4
Pulmonary: Clear and Non Labored; Negative Wheezes, Rales or Rhonchi
Gastrointestinal: Soft, Non Tender, Non Distended and Normal Bowel Sounds
Genito-Urinary: Other (Bilateral PCNs in place with clear urine.); Negative Srinivasan
Extremities: Negative Edema, Cyanosis or Erythema
Skin: Warm and Dry; Negative Rash or Jaundice
Neurological: Awake and Alert
Psychological: Calm
Lab / Diagnostic Study Results
05/24/24 09:13
05/24/24 09:13
Abs Immat Gran (auto) 0.0 10^3/uL (0-0.05) 05/24/24 09:13
Absolute Neuts (auto) 8.9 10^3/uL (1.4-6.5) H 05/24/24 09:13
Absolute Lymphs (auto) 0.5 10^3/uL (1.2-3.4) L 05/24/24 09:13
Absolute Monos (auto) 0.8 10^3/uL (0.1-0.6) H 05/24/24 09:13
Absolute Basos (auto) 0.0 10^3/uL (0-0.2) 05/24/24 09:13
Immature Gran % 0.3 % (0-0.5) 05/24/24 09:13
Neutrophils % 87.0 % (42.2-75.2) H 05/24/24 09:13
Lymphocytes % 4.8 % (20.5-51.1) L 05/24/24 09:13
Monocytes % 7.3 % (1.7-9.3) 05/24/24 09:13
Eosinophils % 0.4 % (0-6) 05/24/24 09:13
Basophils % 0.2 % (0-2) 05/24/24 09:13
PT 16.3 Sec (11.4-14.6) H 05/23/24 15:45
INR 1.30 05/23/24 15:45
Lactic Acid Cancelled 05/22/24 18:15
Ur Squamous Epith Cells /LPF (Few) 05/23/24 03:42
Microbiology Results
Micro:
05/23/24 03:42 Urine Culture - Preliminary
Urine Staphylococcus species
05/22/24 19:40 Urine Culture - Final
Urine
05/24/24 00:00 MRSA Screen - Pending
Nose
05/23/24 19:30 Urine Culture - Pending
Urine
05/22/24 18:03 Blood Culture - Preliminary
Blood/Venous No Growth in 24 hours- Final report to follow
05/22/24 15:23 Blood Culture - Preliminary
Blood/Venous No Growth in 24 hours- Final report to follow
Imaging:
05/22/2024 CT abdomen/pelvis without contrast: Moderate right-sided hydroureteronephrosis extending to the level of the presacral soft tissue is noted. No obstructing stone is visualized. A left-sided percutaneous nephrostomy tube is noted with
the tip in the inferior calyx. No left-sided hydronephrosis seen. He distended gallbladder without CT findings of acute cholecystitis is noted. Please see full dictation for additional detail.
Assessment / Plan
Complicated urinary tract infection
Obstructive uropathy; status post PCN placement
Leukocytosis
Fever
Suspected right-sided pyelonephritis
A-fib
HTN
Dyslipidemia
Prostate cancer
Hx obstructive uropathy of distal left ureter (secondary to XRT)
Rectal CA (1992)
Hx bowel obstruction
Asthma
Recommendations:
Preliminary cultures revealed presence of a staph species.
Continue with ceftriaxone for the present. Will add empiric vancomycin pending further culture data.
Continue to monitor temperatures. Given suspicion of pyelonephritis, resolution of fevers can lag appropriate treatment.
Follow white count.
Care Review
Plan reviewed with: Physician (Pulmonary)
--- NOTE | 2024-05-24 15:47 | CON.PUL ---
Consultation
Consultation Request
Date/Time Consultation Requested: 05/24/2024
Date/Time Consultation Performed: 05/24/2024
Requesting Provider: Dr. Kilgore
Performing Provider: Dr. Bowen Holland
Reason for Consultation: Respiratory sufficiency
Medical History
-
History of Present Illness:
64-year-old man with past medical history significant for colorectal cancer status post colectomy with colostomy in place, prostate cancer status post TURP and hormonal/radiation therapy followed at [place], chronic left hydroureteronephrosis
secondary to radiation with left nephrostomy tube, atrial fibrillation status post ablation, hypertension, anemia, asthma who presents with right lower abdominal pain the day prior admission. Does report fevers and chills on admission.
Also vomiting prior to admission.
He does report some degree of cloudy urine.
Admitted to the hospital for sepsis on 05/22/2024, likely complicated UTI.
Started on antibiotics empirically.
We were consulted due to shortness of breath and tachycardia. Concern for pulmonary embolism. Unable to perform CT angiogram due to acute kidney injury.
Past Medical History
Past Medical History: Other (See assessment and plan)
Social History
Tobacco: Non-smoker
Alcohol: None
Drug: None
Family History
Family History: Reviewed & Not Pertinent
Allergies / Home Medications
Allergies
Allergy/AdvReac Type Severity Reaction Status Date / Time
Beef Containing Products Allergy wheezing Verified 05/23/24 20:50
grass pollen Allergy sneezing Verified 05/23/24 20:50
ibuprofen [Ibuprofen] Allergy BLEEDING Verified 05/22/24 14:07
mold Allergy sneezing Verified 05/23/24 20:50
wheat Allergy Shortness Verified 05/23/24 20:50
of Breath
Home Medications
�Medication �Instructions �Recorded �Confirmed �Last Taken �Type
polyethylene glycol 3350 17 gram 17 grams PO BIDPRN PRN constipation 05/02/21 05/22/24 03/16/23 History
oral powder packet
albuterol sulfate 90 mcg/actuation 1 puff inhalation Q6HPRN PRN SOB 08/06/21 05/22/24 03/15/23 History
aerosol inhaler (Ventolin HFA)
oxycodone-acetaminophen 10 mg-325 1 tab PO Q8HPRN PRN severe pain 12/07/22 05/22/24 12/07/22 History
mg tablet
amitriptyline 10 mg tablet 10 mg PO HSPRN PRN depression 05/22/24 05/22/24 Unknown History
cholecalciferol (vitamin D3) 50 50 mcg PO DAILY 05/22/24 05/22/24 Unknown History
mcg (2,000 unit) tablet (Vitamin
D3)
lactulose 10 gram/15 mL oral 10 g PO DAILYPRN PRN constipation 05/22/24 05/22/24 Unknown History
solution
magnesium hydroxide 400 mg/5 mL 400 mg PO Q4HPRN PRN constipation 05/22/24 05/22/24 Unknown History
oral suspension (Dulcolax
(magnesium hydroxide))
metoprolol tartrate 25 mg tablet 25 mg PO DAILYPRN PRN heartrate 05/22/24 05/22/24 Unknown History
ondansetron 8 mg disintegrating 16 mg PO [id number] PRN nausea 05/22/24 05/22/24 Unknown History
tablet
oxycodone 40 mg tablet,crush 40 mg PO BID 05/22/24 05/22/24 Unknown History
resistant,extended release 12 hr
(OxyContin)
therapeutic multivitamin 1 tab PO DAILYPRN PRN supplement 05/22/24 05/22/24 Unknown History
Review of Systems
-
History Source: Patient
All other systems: Negative unless noted
Vitals / Labs / Diagnostic Testing
Vital Signs
Temp Pulse Resp BP Pulse Ox
100.9 F H 94 20 136/69 96
05/24/24 14:25 05/24/24 15:19 05/24/24 15:19 05/24/24 15:19 05/24/24 15:19
Lab Data
05/24/24 09:13
05/24/24 09:13
Laboratory Results
05/23/24
15:45
PT 16.3 H
INR 1.30
Microbiology
05/22/24 15:23 Blood/Venous Blood Culture - Preliminary
No Growth in 48 hours- Final report to follow
05/23/24 03:42 Urine Urine Culture - Preliminary
Staphylococcus species
05/22/24 19:40 Urine Urine Culture - Final
05/22/24 18:03 Blood/Venous Blood Culture - Preliminary
No Growth in 24 hours- Final report to follow
Diagnostic Testing:
Physical Exam
-
HEENT: Normocephalic
Cardiovascular: S1/S2
Respiratory: Clear and Non-Labored Respirations
GI: Non Distended, Other (Colostomy in place) and Other (Nephrostomy)
Neurology: Awake, Alert, AO x 3 and No Motor Deficits
Skin: Warm
General: Comfortable
Assessment
-
64-year-old man with multiple medical problems, admitted with urosepsis. Developed sinus tachycardia and shortness of breath. I was consulted on 05/24/2024 to evaluate for possibility of pulmonary embolism. Unable to perform CT angiogram due to
acute kidney injury
-
Sinus tachycardia/shortness of breath.
EKG sinus tachycardia. Nonspecific ST abnormality.
Fever/urosepsis suspect
Leukocytosis
Chronic kidney disease
Conditions present prior admission:
Colorectal cancer status post colectomy with colostomy in place
Prostate cancer status post TURP status post hormonal/radiation therapy at [place]
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
Atrial fibrillation status post ablation-not on anticoagulation.
Hypertension
Chronic anemia
History of appendectomy
right hemidiaphragm elevation-Follows up Dr. Carias-last time seen 11/2022
[facility] records reviewed at that time patient has baseline sinus tachycardia
Obstructive sleep apnea-moderate. Patient declines CPAP therapy.
Mild intermittent asthma.
Bowel resection 1993
Non-smoker
Echocardiogram 10/05/2022: Normal ejection fraction. Normal biventricular size and function no significant abnormality
Assessment and plan:
Sinus tachycardia, certainly could be from ongoing fevers and sepsis.
In reviewing [facility] records it appears the patient has relatively high heart rate, significant sinus tachycardia with ambulation up to 140.
-
Given high risk for thromboembolic disease with history of cancer, immobility, acute infection. Not unreasonable to rule out pulmonary embolism.
-
Unable to perform CT angiogram as patient is high risk for contrast-induced nephropathy.
Patient currently denies any shortness of breath or chest discomfort 05/24/2024 4:28 PM.
Appears nontoxic. Able to speak in full sentences.
No evidence for lower extremity swelling.
Clear lung exam.
No JVD noted
-
Hemodynamically stable.Most current heart rate is 94 with a temperature of 100.9
Will start with lower extremity Dopplers
Obtain D-dimer, will be helpful if negative.
Obtain troponins and BNP
Obtain chest x-ray.
-
He appears hemodynamically stable, not in distress.
Denies any significant pain
On low rate supplemental oxygen 2 L.
Pulse ox on room air was above 90%.
-
Maintain telemetry
-
Patient has been on DVT prophylaxis this admission.
If condition worsens while waiting for testing may start empirical heparin drip. Hold at this time as patient has other reasons to have sinus tachycardia including sepsis, recently also received nebulizer.
Limit beta agonist
-
Incentive spirometry encouraged with a history of right hemidiaphragm paralysis/paresis.
-
Continue antibiotics to treat urinary infection that is complicated.
-
Dr. Holland Discussed in detail with patient and who was at the bedside.
Will continue to follow
--- NOTE | 2024-05-24 15:49 | W.PN.HOSP.TC ---
Today's Communication/Plan
-
Continue antibiotics -- appreciate ID eval and recs
Tachycardia, SOB -- given cancer history -- PE? CTA not a good idea with renal function, consulted pulm regarding possible V/Q scan; appreciate Pulm eval and recs
Assessment / Plan
Assessment / Plan
Physical Exam
General: Not in acute distress.
HEENT: Normocephalic, Moist mucous membranes
Respiratory: Clear to Auscultation Bilaterally
Cardiac: S1/S2 and Regular Rhythm. Tachycardic.
GI: Soft, Non Tender, Non Distended and Normal Bowel Sounds
Genito-urinary: B/L PCN tubes in place
Musculoskeletal: No Cyanosis and No Edema
Skin: Warm. Dry.
Neuro: Nonfocal/grossly intact
Assessment/Plan
64-year-old male history of colorectal cancer status post colectomy with colostomy, prostate cancer status post TURP status post hormonal/radiation therapy followed at [place], chronic left hydroureteronephrosis secondary to radiation with left
nephrostomy tube, here for sepsis secondary to presumed pyelonephritis of right kidney. CT imaging showed right hydroureteronephrosis without obstructing stone presumably passed stone. IV fluids, blood culture, urine culture, ceftriaxone, urology
consulted.
#Sepsis (fever, tachycardia, leukocytosis) secondary to right-sided pyelonephritis/possible passed right-sided ureteral stone
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
#Significant Right Renal Obstruction s/p Right PCN tube placement
-CT abdomen pelvis showed moderate right-sided hydroureteronephrosis extending to the level of the presacral soft tissue/scarring without obstructing stone
-Urinalysis from left nephrostomy tube shows 11-15 WBC, +2 leukocyte Estrace
-Drainage during right PCN tube placement on 05/23/24 revealed purulence
-Follow blood and urine cultures -- urine culture so far growing Staphylococcus species
-IV fluids
-Continue IV antibiotics
-ID consulted, appreciate their evaluation and recommendations
-Urology consulted, appreciate their evaluation and recommendations
#Shortness of breath, tachycardia 05/23/24 to 05/24/24
-Given cancer history, concern for DVT/PE
-But with renal function cannot do CTA
-Consulted pulm regarding a possible V/Q scan if needed
# Acute kidney injury secondary to right-sided renal obstruction/sepsis
# Hyperkalemia
-Creatinine of 2.1-->2.4--->....--->1.8
-IV fluids
-PCN placement on the right side has been completed
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
History of rectal CA 30 years ago s/p resection/end colostomy/XRT and unsuccessful reversal attempts. Also hx prostate CA, additional XRT and subsequent retroperitoneal fibrosis, ureteral obstruction s/p indwelling L nephrostomy tube
-As of 05/24/24, no output in the colostomy bag
-Not improved with Relistor and Movantik in past
-If not effective consider lactulose, mag citrate vs enema vs ostomy if continued issues
-Consulted GI, appreciate eval and recs: Miralax BID
Colorectal cancer status post colectomy with colostomy
Chronic pain
-Continue Percocet
Constipation
-Continue MiraLAX
Atrial fibrillation status post ablation
-Continue metoprolol
Essential hypertension
Chronic anemia
Asthma
-Continue albuterol
Anxiety/depression
-Continue amitriptyline
Full code
DVT prophylaxis�Heparin
Regular Diet
Anticipated Discharge: > 48 hours
Subjective/Interval History
-
Date of Service: May 24, 2024
Patient was seen and examined. His vital signs showed tachycardia, he was having some shortness of breath, but overall he reported feeling better than when he came in.
Objective Data
-
Labs:
Laboratory Results
05/24/24
09:13
WBC 10.2
Hgb 8.7 L
Hct 27.1 L
Plt Count 151
Sodium 138
Potassium 4.9
Chloride 99
Carbon Dioxide 24
BUN 45 H
Creatinine 1.8 H
Glucose 112 H
Calcium 8.5
Vital Signs:
Vital Signs
Temp Pulse Resp BP Pulse Ox
100.9 F H 94 20 136/69 96
05/24/24 14:25 05/24/24 15:19 05/24/24 15:19 05/24/24 15:19 05/24/24 15:19
I&O
05/23/24 05/24/24 05/25/24
06:59 06:59 06:59
Intake Total 1280 / 1280 2905 / 2905
Output Total 420 / 420 1500 / 1500
Balance 860 / 860 1405 / 1405
[2024-05-24] MEDS: VANCOCIN 540 MG IV (16:27)
[2024-05-24 17:21] LABS: D-Dimer 3.65 ug/mlFEU (0.00-0.50)
[2024-05-24 17:25] LABS: NT-proBNP 2450 pg/ml; Troponin I 0.031 ng/ml
[2024-05-24 19:00] VITALS: BP 156/73
--- NOTE | 2024-05-24 19:55 | PTCARENOTE ---
Report received from previous RN.
[2024-05-24] MEDS: STERILE WATER FOR INJECTION 10 ML IV (19:59)
[2024-05-24] MEDS: ROCEPHIN 1000 MG IV (19:59)
--- NOTE | 2024-05-24 20:01 | PTCARENOTE ---
Pt continues with fevers throughout shift. Pt medicated per orders, ICE and fan applied intermittently as tolerated. Pt having intermittent SOB requiring neb this am. Pulse ox ranging from 89-90% on RA. Pt placed on 2L NC pulse ox 95%. Lung
decreased slightly coarse with upper airway wheezing, ( improved with neb) Pt feels breathing has improved with supplemental 02 and neb. IS encouraged. Pt having tachycardia, Since return from Right nephro tube placement last night. Spoke with MD
pt placed on tele, Sinus Tach with frequent PACs. Consults to pulm, ID and GI.( no output from colostomy bag (given Milk of magnesia and lactulose) D-dimer elevated along with Probnp, MD and pulm made aware IVF decreased to 75ml/hr. Continuous
pulse ox ordered. CXR completed. Continues with pain and nausea ( medicated per orders) wants pt to be transferred to IMU.Report given to RN, Pt taken in bed with belongings, at bedside updated on POC.
[2024-05-24 20:54] VITALS: BP 141/69
--- NOTE | 2024-05-24 21:00 | PHA.VAN.IN ---
Assessment
- Assessment
Renal Function: Appears similar to baseline (05/05/21 BASELINE SCR: 1.8)
Concomitant Antimicrobials: ROCEPHIN
- Previous Dosing Experience
Previous Regimen: NONE
AUC Dosing Plan
- Dosing Variables
Dosing Weight (kg): 92.2
Dosing CrCl (ml/min): 45
Vd coefficient (L/kg): 0.7
- Empiric Dosing
Initial / Loading Dose: 2GM
Maintenance Regimen: 1250MG IV Q24H
Estimated AUC (mcg*h/mL): 478
Estimated Peak (mcg*h/mL): 30.6
Estimated Trough (mcg/ml): 12
Estimated Half Life (H): 16.6
Pharmacokinetics Vancomycin I
- -
Patient Age: 64
Patient Sex: Male
Vancomycin Day #: 1
Indication: Genito-Urinary Tract
Requesting Provider: ABDIRAHMAN
Height / Weight:
Height 6 ft
Actual Weight 92.164 kg
- Vital Signs / Lab Results
Temp Pulse Resp BP Pulse Ox
101.1 F H 94 20 136/69 95
05/24/24 17:58 05/24/24 15:19 05/24/24 15:19 05/24/24 15:19 05/24/24 20:15
Lab Results - Hematology
05/22/24 05/23/24 05/24/24
14:20 07:23 09:13
WBC 21.7 H 13.7 H 10.2
Lab Results - Chemistry
05/22/24 05/23/24 05/23/24
14:20 07:23 09:04
BUN 36 H Cancelled 42 H
Creatinine 2.1 H Cancelled 2.4 H
Estimated Creat Clear 38 Cancelled 34
Albumin 4.1 Cancelled 3.6
05/23/24 05/24/24
21:43 09:13
BUN 44 H 45 H
Creatinine 2.2 H 1.8 H
Estimated Creat Clear 37 45
Albumin
05/22/24 05/22/24
14:20 18:15
Lactic Acid 1.3 Cancelled
Lab Results - Urine
05/22/24 05/23/24
19:40 03:42
Urine Nitrite (Reflex) Negative Negative
Leukocyte Esterase Rfl 2+ A 2+ A
Urine WBC (Reflex) 11-15 A >100 A
Ur Squamous Epith Cells
Urine Bacteria (Reflex) Few A Many A
Microbiology Results
05/22/24 18:03 Blood Culture - Preliminary
Blood/Venous No Growth in 48 hours- Final report to follow
05/22/24 15:23 Blood Culture - Preliminary
Blood/Venous No Growth in 48 hours- Final report to follow
05/23/24 03:42 Urine Culture - Preliminary
Urine Staphylococcus species
05/22/24 19:40 Urine Culture - Final
Urine
--- NOTE | 2024-05-24 21:15 | PTCARENOTE ---
Pt received from previous RN. Pt [id number]. at bedside. Pt ambulated from previous bed to current bed, Pt with strong steady gait, stand by assist. Denies SOB, changes in vision or dizziness with ambulation. temp 99.1 . NSR on monitor, HR 86. Pt
on 2L 02, Denies current SOB, sat 94%. No current output from colostomy. 150 ml of yellow output emptied from left nephrostomy thus far during this RNS shift. Pt inc of urine, Pt wearing own briefs. Dressings over B/L nephs Clean dry and intact. Pt
turning self. Call light in reach.
[2024-05-24 22:00] VITALS: BP 128/40
[2024-05-25] VITALS (10 sets, daily range): BP systolic 123–160; BP diastolic 60–78
[2024-05-25] MEDS: DILAUDID 0.5 MG IV ×4 (02:56→23:20)
[2024-05-25] MEDS: TYLENOL 650 MG PO ×2 (04:41→16:59)
[2024-05-25] MEDS: ZOFRAN 4 MG IV (05:04)
[2024-05-25 05:16] LABS: Hematocrit 26.2 % (39.0-52.0); Hemoglobin 8.4 g/dL (13.0-18.0); Mean Corp Hgb Conc. 32.1 g/dL (33.0-37.0); Mean Corpuscular Hgb 26.8 pg (27.0-31.0); Mean Corpuscular Volume 83.4 fL (80.0-94.0); Mean Platelet Volume 9.4 fL (7.4-10.4); Platelet Count 128 10^3/uL (130-400); Red Blood Cell Count 3.14 10^6/uL (4.70-6.10); Red Cell Dist. Width 15.6 % (11.5-14.5); White Blood Cell Count 7.4 10^3/uL (4.8-10.8)
[2024-05-25 05:37] LABS: Blood Urea Nitrogen 43 mg/dl (9-20); Calcium 8.5 mg/dl (8.4-10.2); Carbon Dioxide 25 mmol/L (22-30); Chloride 100 mmol/L (98-107); Estimated Creatinine Clearance 51 ml/min; Glucose 113 mg/dl (70-99); Potassium 4.5 mmol/L (3.5-5.1); Sodium 135 mmol/L (135-145); eGFR 47.52
[2024-05-25] MEDS: VANCOCIN 275 MG IV (06:05)
[2024-05-25] MEDS: OXYCONTIN (CONTROLLED RELEASE) 40 MG PO ×2 (08:11→19:26)
[2024-05-25] MEDS: VITAMIN D3 (cholecalciferol) 50 MCG PO (08:11)
[2024-05-25] MEDS: MIRALAX 17 GRAMS PO ×2 (08:11→19:26)
[2024-05-25] MEDS: HEPARIN 5000 UNITS SC ×2 (08:11→19:26)
[2024-05-25] MEDS: DUPHALAC/CHRONULAC 10 GRAMS PO (08:12)
--- NOTE | 2024-05-25 08:43 | PTCARENOTE ---
Right PCN with 25ml overnight- relayed to IRAD- instructed to flush w 10ml NS- completed will monitor output.
--- NOTE | 2024-05-25 09:41 | W.PN.PUL3 ---
Today's Communication / Plan
-
Echocardiogram-pending
Lower extremity Dopplers-pending
Continue DVT prophylaxis
Incentive spirometry
continue antibiotics for urosepsis
Assessment
-
64-year-old man with multiple medical problems, admitted with urosepsis. Developed sinus tachycardia and shortness of breath. I was consulted on 05/24/2024 to evaluate for possibility of pulmonary embolism. Unable to perform CT angiogram due to
acute kidney injury
-
Sinus tachycardia/shortness of breath.
EKG sinus tachycardia. Nonspecific ST abnormality.
Fever/urosepsis suspect
Leukocytosis
Chronic kidney disease
Conditions present prior admission:
Colorectal cancer status post colectomy with colostomy in place
Prostate cancer status post TURP status post hormonal/radiation therapy at [place]
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
Atrial fibrillation status post ablation-not on anticoagulation.
Hypertension
Chronic anemia
History of appendectomy
right hemidiaphragm elevation-Follows up Dr. Carias-last time seen 11/2022
[facility] records reviewed at that time patient has baseline sinus tachycardia
Obstructive sleep apnea-moderate. Patient declines CPAP therapy.
Mild intermittent asthma.
Bowel resection 1993
Non-smoker
Echocardiogram 10/05/2022: Normal ejection fraction. Normal biventricular size and function no significant abnormality
Assessment and plan:
Sinus tachycardia, certainly could be from ongoing fevers and sepsis.
In reviewing [facility] records it appears the patient has relatively high heart rate, significant sinus tachycardia with ambulation up to 140.
-
Given high risk for thromboembolic disease with history of cancer, immobility, acute infection. Not unreasonable to rule out pulmonary embolism.
-
Unable to perform CT angiogram as patient is high risk for contrast-induced nephropathy.
Continues to denies any significant shortness of breath at rest 05/25/2024.
Heart rate improved currently at 73
Clear lung exam.
Appears nontoxic. Able to speak in full sentences.
Oxygen has been weaned off 05/25/2024
No evidence for lower extremity swelling.
No JVD noted
-
Fever curve improved
lower extremity Dopplers-pending
Elevated [id number] at this point seems was in the setting of sepsis/history of cancer.
proBNP moderately elevated, repeat echocardiogram. May be related to volume resuscitation and chronic kidney disease. Consider discontinuation of IV fluids. Currently clinically does not appear volume overloaded.
Negative troponin. Denies chest pain.
Hold off on VQ scan for now
For now my suspicion for thromboembolic disease is not very high.
-
Chest x-ray 05/24/2024: Reviewed showed no acute cardiopulmonary abnormality. Elevation of the right hemidiaphragm. Subsegmental atelectasis.
Incentive spirometry encouraged with a history of right hemidiaphragm paralysis/paresis.
Incentive spirometry encouraged
-
On low rate supplemental oxygen 2 L. Possibly due to atelectasis, wean off as able.
-
Maintain telemetry
-
Patient has been on DVT prophylaxis this admission.
-
Chronic anemia, likely contributing to symptoms of shortness of breath as well. Hemoglobin is stable.
-
Continue antibiotics to treat urinary infection that is complicated.
-
Dr. Holland Discussed in detail with patient and who was at the bedside.
If echocardiogram/lower extremity Doppler are unremarkable, remains hemodynamically stable and not hypoxemic and without ongoing tachycardia pulmonary team will sign off.
Subjective Data
-
Date of Service:
Date of Service: May 25, 2024
Chief Complaint: Pulmonary Follow Up (Shortness of breath/sinus tachycardia)
Review of Systems
Cardiopulmonary: Dyspnea (none at rest) and Chest Pain (n)
GI: Abdominal Pain (n) and Nausea (n)
Neuro: Headache (n)
Objective Data
Data Reviewed
Vital Signs / I&O / Oxygen:
Vital Signs
Temp Pulse Resp BP Pulse Ox
98.3 F 73 14 133/64 94
05/25/24 07:40 05/25/24 08:00 05/25/24 08:00 05/25/24 08:00 05/25/24 08:00
Intake and Output
05/24/24 05/25/24 05/26/24
06:59 06:59 06:59
Intake Total 2905 / 2905 2920 / 2920
Output Total 1500 / 1500 1725 / 1725
Balance 1405 / 1405 1195 / 1195
SaO2 94
Nasal Cannula flow liters per 2
minute
Physical Exam
General: Comfortable
HEENT: Normocephalic
Cardiovascular: S1-S2 and Regular Rhythm
Respiratory: Clear and Non-Labored Respirations
GI: Soft, Non Distended, Other (Colostomy in place) and Other (Nephrostomy tube in place)
Neurology: Awake, Oriented, AO x 3 and No Motor Deficits
Skin: Warm
Labs/Micro/Reports
Lab Data
05/25/24 04:56
05/25/24 04:56
Microbiology
05/23/24 03:42 Urine Urine Culture - Final
S aureus-Methicillin Sensitive
05/24/24 00:00 Nose MRSA Screen - Final
No Methicillin Resistant Staphylococcus aureus isolated.
05/22/24 18:03 Blood/Venous Blood Culture - Preliminary
No Growth in 48 hours- Final report to follow
05/22/24 15:23 Blood/Venous Blood Culture - Preliminary
No Growth in 48 hours- Final report to follow
05/22/24 19:40 Urine Urine Culture - Final
--- NOTE | 2024-05-25 09:46 | PTCARENOTE ---
RPCN drained 75ml past hour.
[2024-05-25] MEDS: NSS 1000 IV ×2 (11:32→23:20)
[2024-05-25] MEDS: MILK OF MAGNESIA 5 ML PO (11:33)
--- NOTE | 2024-05-25 12:10 | W.PN.URO.CBU ---
Today's Communication / Plan
-
Maintain bilateral PCNs to drainage
IV antibiotics for MSSA on UCx per ID
F/U in 2-[address] w/ IV contrast + antegrade nephrostogram to assess right ureteral anatomy
Discussed high likelihood of chronic dependence on bilateral PCNs given hostile abdomen/pelvis and ureteral strictures
Discussed in detail w/ patient and spouse.
Assessment / Plan
-
New right hydronephrosis - s/p right PCN
ABRAM - improving
Urosepsis
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
Prostate cancer s/p XRT (10/2018)
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
05/23: s/p right PCN placement by IR
WBC normalized
Cr 2.2 => 1.8 => 1.6
Diagnosis
-
Date of Service: May 25, 2024
-
Patient Diagnosis:
New right hydronephrosis
ABRAM
Urosepsis
Prostate cancer s/p XRT
Residual pelvic fixation and scarring from XRT x2, LAR
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
05/23: s/p right PCN placement by IR
Subjective
-
Transferred to IMU from floor - noted to have SOB and tachycardia.
Bilateral PCNs draining well.
Scant to no drainage per urethra s/p right PCN placement.
Objective
-
Vital Signs
Temp Pulse Resp BP Pulse Ox
98.3 F 77 18 133/64 97
05/25/24 07:40 05/25/24 10:00 05/25/24 10:00 05/25/24 08:00 05/25/24 10:45
Intake and Output
05/24/24 05/25/24 05/26/24
06:59 06:59 06:59
Intake Total 2905 / 2905 2920 / 2920 490 / 490
Output Total 1500 / 1500 1725 / 1725 375 / 375
Balance 1405 / 1405 1195 / 1195 115 / 115
Intake:
Oral fluids 480 / 480 480 / 480 480 / 480
IV fluids (Total) 2425 / 2425 1900 / 1900
NSS 125 / 125
IV piggybacks 540 / 540
Amount instilled into Urinary
Drain (Total)
Right Nephrostomy
Output:
Urinary Drain Output (Total) 1500 / 1500 1725 / 1725 375 / 375
Left Nephrostomy 1350 / 1350 1450 / 1450 300 / 300
Right Nephrostomy 150 / 150 275 / 275 75 / 75
Other:
How many times incontinent 1
SATURATED amount urine
Laboratory Results
05/25/24 04:56
05/25/24 04:56
Physical Exam
-
General - no acute distress
Abdomen - soft, non-tender, non-distended, bilateral PCNs in place
Genitalia - normal
Neuro - AOx3, no motor deficits
Extremities - no clubbing, no cyanosis, no edema
Care Review
Data Reviewed
Discussed with: Hospitalist and Family
CT Scan: Report Pers Reviewed and Image Pers Reviewed
--- NOTE | 2024-05-25 12:14 | W.PN.ID1 ---
Date of Service
Date of Service: May 25, 2024
Today's Communication
Continue antibiotics. See below�
Assessment / Plan
Complicated urinary tract infection
Obstructive uropathy; status post PCN placement
Leukocytosis
Fever
Suspected right-sided pyelonephritis
A-fib
HTN
Dyslipidemia
Prostate cancer
Hx obstructive uropathy of distal left ureter (secondary to XRT)
Rectal CA (1992)
Hx bowel obstruction
Asthma
Recommendations:
Urine cultures with MSSA.
Narrow to cefazolin.
Continue to monitor temperatures. Hopefully fevers will cris soon.
Trend white count.
����������������������������������������������������������
Chief Complaint
-: Fever and UTI
Subjective / Review of Systems
Review of Systems: Fever, No Chills and Abdominal Pain
Vital Signs / Physical Exam
Vital Signs
Vital Signs
Temp Pulse Resp BP Pulse Ox
98.3 F 77 18 133/64 97
05/25/24 07:40 05/25/24 10:00 05/25/24 10:00 05/25/24 08:00 05/25/24 10:45
Physical Exam
Constitutional: No Acute Distress, Comfortable and Non-toxic
Eyes: Sclera Anicteric
Cardiovascular: S1/S2; Negative S3/S4
Pulmonary: Non Labored
Gastrointestinal: Soft and Non Distended
Genito-Urinary: Other (Bilateral PCNs in place.)
Extremities: Negative Edema
Neurological: Awake and Alert
Psychological: Calm
Objective Data
Lab Data
Lab Results
05/25/24 04:56
05/25/24 04:56
PT 16.3 Sec (11.4-14.6) H 05/23/24 15:45
INR 1.30 05/23/24 15:45
Estimated Creat Clear 51 ml/min 05/25/24 04:56
Lactic Acid Cancelled 05/22/24 18:15
Total Bilirubin 0.5 mg/dl (0.2-1.3) 05/23/24 09:04
AST 19 U/L (17-59) 05/23/24 09:04
ALT 13 U/L (0-50) 05/23/24 09:04
Alkaline Phosphatase 81 U/L (38-126) 05/23/24 09:04
Most recent labs reviewed.
Micro Results:
05/23/24 03:42 Urine Culture - Final
Urine S aureus-Methicillin Sensitive
05/24/24 00:00 MRSA Screen - Final
Nose No Methicillin Resistant Staphylococcus aureus isolated.
05/22/24 18:03 Blood Culture - Preliminary
Blood/Venous No Growth in 48 hours- Final report to follow
05/22/24 15:23 Blood Culture - Preliminary
Blood/Venous No Growth in 48 hours- Final report to follow
05/22/24 19:40 Urine Culture - Final
Urine
05/23/24 19:30 Urine Culture - Pending
Urine
Imaging:
05/22/2024 CT abdomen/pelvis without contrast: Moderate right-sided hydroureteronephrosis extending to the level of the presacral soft tissue is noted. No obstructing stone is visualized. A left-sided percutaneous nephrostomy tube is noted with
the tip in the inferior calyx. No left-sided hydronephrosis seen. He distended gallbladder without CT findings of acute cholecystitis is noted. Please see full dictation for additional detail.
--- NOTE | 2024-05-25 12:46 | CM ---
Patient with Hx colostomy with Dx sepsis secondary to presumed pyelonephritis right kidney, s/p right nephrostomy placement. Plan echo and LE Doppler study. Room air. Dressing right PCN. Receiving IVF, IV Abx, IV Dilaudid prn, Oxycodone prn.
Ambulatory in room per nurse assessment.
Met with patient and ; expressed concern that she may want nurse to check nephrostomy tube site/dressing at home. says patient has had Maricel BOTELLO previously. Patient and Madina agree to a referral to [facility] - referral placed.
Plan home with Maricel BOTELLO.
[2024-05-25] MEDS: ANCEF 10 IV ×2 (12:54→19:25)
[2024-05-25] MEDS: DULCOLAX 10 MG PO (12:55)
--- NOTE | 2024-05-25 16:52 | W.PN.HOSP.TC ---
Today's Communication/Plan
-
Continue IV Ancef
Assessment / Plan
Assessment / Plan
Physical Exam
General: Not in acute distress.
HEENT: Normocephalic, Moist mucous membranes
Respiratory: Clear to Auscultation Bilaterally
Cardiac: S1/S2 and Regular Rhythm. Tachycardic.
GI: Soft, Non Tender, Non Distended and Normal Bowel Sounds
Genito-urinary: B/L PCN tubes in place
Musculoskeletal: No Cyanosis and No Edema
Skin: Warm. Dry.
Neuro: Nonfocal/grossly intact
Assessment/Plan
64-year-old male history of colorectal cancer status post colectomy with colostomy, prostate cancer status post TURP status post hormonal/radiation therapy followed at [place], chronic left hydroureteronephrosis secondary to radiation with left
nephrostomy tube, here for sepsis secondary to presumed pyelonephritis of right kidney. CT imaging showed right hydroureteronephrosis without obstructing stone presumably passed stone. IV fluids, blood culture, urine culture, ceftriaxone, urology
consulted.
#Sepsis (fever, tachycardia, leukocytosis) secondary to right-sided pyelonephritis/possible passed right-sided ureteral stone
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
#Significant Right Renal Obstruction s/p Right PCN tube placement
-CT abdomen pelvis showed moderate right-sided hydroureteronephrosis extending to the level of the presacral soft tissue/scarring without obstructing stone
-Urinalysis from left nephrostomy tube shows 11-15 WBC, +2 leukocyte Estrace
-Drainage during right PCN tube placement on 05/23/24 revealed purulence
-Maintain bilateral PCNs to drainage
-Follow blood and urine cultures -- urine culture grew MSSA
-IV fluids
-Continue IV antibiotics with Ancef. Vancomycin and Ceftriaxone have been stopped.
-ID consulted, appreciate their evaluation and recommendations
-Urology consulted, appreciate their evaluation and recommendations
-Follow-up with urology in 2-[address] w/ IV contrast + antegrade nephrostogram to assess right ureteral anatomy
#Shortness of breath, tachycardia 05/23/24 to 05/24/24 - RESOLVED
#Elevated D-dimer - unreliable in the setting of sepsis/history of cancer.
-Given cancer history, concern for DVT/PE
-But with renal function cannot do CTA
-Consulted pulmonary regarding a possible V/Q scan if needed
-Echocardiogram with no RV dilation
-Lower extremity Dopplers - no DVT present
#Acute kidney injury secondary to right-sided renal obstruction/sepsis
#Hyperkalemia
-Creatinine of 2.1-->2.4--->....--->1.8-->1.6
-IV fluids
-PCN placement on the right side has been completed
#Small PFO and mildly dilated aortic root (4.3 cm) on echocardiogram
-Discussed with cardiothoracic surgery: this can be followed up outpatient. There is nothing needed for a 4.3cm root other than sequential/annual monitoring.
-Dr. Bay Greer said via [place] [facility] on 05/25/24 his office will arrange outpatient follow-up
#History of prostate cancer status post TURP/hormonal/radiation therapy with chronic left hydroureteronephrosis from radiation with chronic left nephrostomy tube
#History of rectal CA 30 years ago s/p resection/end colostomy/XRT and unsuccessful reversal attempts. Also hx prostate CA, additional XRT and subsequent retroperitoneal fibrosis, ureteral obstruction s/p indwelling L nephrostomy tube
-As of 05/24/24, no output in the colostomy bag
-Not improved with Relistor and Movantik in past
-If not effective consider lactulose, mag citrate vs enema vs ostomy if continued issues
-Consulted GI, appreciate eval and recs: Miralax BID
#Colorectal cancer status post colectomy with colostomy
Chronic pain
-Continue Percocet
Constipation
-Continue MiraLAX
Atrial fibrillation status post ablation
-Continue metoprolol
Essential hypertension
Chronic anemia
Asthma
-Continue albuterol
Anxiety/depression
-Continue amitriptyline
Full code
DVT prophylaxis�Heparin
Regular Diet
Anticipated Discharge: 24 - 48 hours
Subjective/Interval History
-
Date of Service: May 25, 2024
Patient was seen and examined. He reported right lower quadrant abdominal pain still. Right PCN wasn't draining as much before, but then started draining after procedure.
Objective Data
-
Labs:
Laboratory Results
05/25/24
04:56
WBC 7.4
Hgb 8.4 L
Hct 26.2 L
Plt Count 128 L
Sodium 135
Potassium 4.5
Chloride 100
Carbon Dioxide 25
BUN 43 H
Creatinine 1.6 H
Glucose 113 H
Calcium 8.5
Vital Signs:
Vital Signs
Temp Pulse Resp BP Pulse Ox
100.2 F 83 18 133/64 97
05/25/24 16:50 05/25/24 12:00 05/25/24 12:00 05/25/24 08:00 05/25/24 10:45
I&O
05/24/24 05/25/24 05/26/24
06:59 06:59 06:59
Intake Total 2905 / 2905 2920 / 2920 490 / 490
Output Total 1500 / 1500 1725 / 1725 375 / 375
Balance 1405 / 1405 1195 / 1195 115 / 115
--- NOTE | 2024-05-25 17:48 | W.PN.UPDATE ---
Update Note
Progress Note Update
Dr. Greer is aware of patient. Incidental finding of small PFO and 4.3 cm aortic root dilatation found on echocardiogram. Will follow-up as an outpatient and 1 year with a CTA of the chest.
--- NOTE | 2024-05-25 19:13 | PTCARENOTE ---
OOB few hours today, completed US and ECHO as ordered. Requests Dilaudid for pain givenx2 this shift, Tylenol x1. Tmax 100.2 this pm. SR on tele/ PACS max BP 150s/ 70. Right PCN with improved output this pm total output 285ml. Left PCN
adequate, dressing changed today. Incontinent - saturated x2 today as well. Multiple meds given for chronic constipation (opiods) LBM few days ago (normal for him) finally after po Dulcolax he emptied mod-large amt soft formed stool. IVF
infusing, appetite fair- drinking adequate.
[2024-05-25] MEDS: FLUSH (NSS) 2 FLUSH IV (19:28)
--- NOTE | 2024-05-25 19:59 | W.PN.GI.CBS2 ---
Today's Communication / Plan
-
PLAN:
etiology of constipation likely chronic issues with hx retroperitoneal fibrosis, chronic narcotic use vs other and currently exacerbated with urologic issues ? ileus
He did have a bowel movement from the colostomy, small hard stool.
Continue MiraLAX twice a day. He is tolerating a regular diet.
If he continues to have constipation with minimal stool, suggested magnesium citrate.
Patient wants to hold off for now and if no significant bowel movements tomorrow, he will consider magnesium citrate.
pt will need eventual colonoscopy for follow up as canceled in November
OP follow up with Dr. Husain
Assessment / Plan
-
Pt is a 64yo present rectal CA with resection/colostomy failed reversal, Prostate CA with prior aborted radial prostatectomy at [place] with subsequent radiation, urinary retention, ureteral obstruction and left hydro with nephrostomy placement, TURP,
incontinence, HTN, hypercholesteremia, afib with prior ablation, asthma now presents with onset of abdominal pain with vomiting and fever 104 with concern for sepsis with noted right sided hydro possible passed stoned with ABRAM and leukocytosis on
admission. After admission pt went to right nephrostomy tube with purulent drainage. Asked to see for constipation and no stools for 4 days. In review with patient this is a chronic issues. He typically has a stool every 2-3 days. He will take
Miralax daily and then add Dulcolax and lactulose as needed. He does not use enemas in ostomy. He also admit to chronic nausea daily and abdominal pain mostly on left side but noted with right sided pain on admission. Last colonoscopy [address] Yusuf was normal. He was seen by Dr. Husain in September with concern for opioid induced constipation with no improvement with prior trial of Relistor or Movantik. He was scheduled for colonoscopy in November but did cancel.
-sepsis with fever/leukocytosis pyelonephritis/possible passed stone
-right sided abdominal pain on admission with hydro and placement of right nephrostomy tube
-constipation with hx chronic constipation
-ABRAM on admission
-rectal CA with resection/colonoscopy and radiation with failed reversal
-chronic pain with chronic narcotic use
other medical problems:
-prostate CA with aborted failed radial prostatectomy and radiation
-chronic left nephrostomy
--TURP
-incontinence
-afib with prior ablation
-asthma
-family hx colon CA
PLAN:
etiology of constipation likely chronic issues with hx retroperitoneal fibrosis, chronic narcotic use vs other and currently exacerbated with urologic issues ? ileus
He did have a bowel movement from the colostomy, small hard stool.
Continue MiraLAX twice a day. He is tolerating a regular diet.
If he continues to have constipation with minimal stool, suggested magnesium citrate.
Patient wants to hold off for now and if no significant bowel movements tomorrow, he will consider magnesium citrate.
pt will need eventual colonoscopy for follow up as canceled in November
OP follow up with Dr. Husain
Subjective
Subjective
Date of Service: May 25, 2024
Patient reports some discomfort in the right lower quadrant , no nausea or vomiting. Reports having small bowel movement today.
Objective
Data Reviewed
Laboratory Data:
Laboratory Results
05/25/24 04:56
05/25/24 04:56
Laboratory Results
PT 16.3 Sec (11.4-14.6) H 05/23/24 15:45
INR 1.30 05/23/24 15:45
Magnesium 1.9 mg/dl (1.6-2.3) 05/23/24 21:43
Total Bilirubin 0.5 mg/dl (0.2-1.3) 05/23/24 09:04
AST 19 U/L (17-59) 05/23/24 09:04
ALT 13 U/L (0-50) 05/23/24 09:04
Alkaline Phosphatase 81 U/L (38-126) 05/23/24 09:04
Lipase 47 U/L (23-300) 05/22/24 14:20
Vital Signs and I&O:
Vital Signs
Temp Pulse Resp BP Pulse Ox
98.3 F 82 12 144/71 93
05/25/24 19:53 05/25/24 18:00 05/25/24 18:00 05/25/24 18:00 05/25/24 19:54
I&O
05/24/24 05/25/24 05/26/24
06:59 06:59 06:59
Intake Total 2905 / 2905 2920 / 2920 2890 / 2890
Output Total 1500 / 1500 1725 / 1725 1185 / 1185
Balance 1405 / 1405 1195 / 1195 1705 / 1705
Physical Exam
Physical Exam
GI: Soft, Non Distended and Tender (Some discomfort in the right lower quadrant)
--- NOTE | 2024-05-25 23:01 | PTCARENOTE ---
Pt received at beginning of shift resting in bed at bedside. Admits to moderate pain to right abd side. B/L nephrostomy tube dressings c/d/i. Right nephrostomy tube draining blood tinged urine emptied for 50mls. Left nephrostomy tube draining
yellow urine emptied for 175mls. Colostomy intact emptied for 350ml brown soft stool. Pt up in chair for dinner for approx 2 hours. Currently brushing teeth then back to bed for night. VSS. Afebrile. SR on CM. IVF's infusing as ordered. Rest of
assessment as documented. Call niño remains within reach. Will continue to monitor.
[2024-05-26] VITALS (11 sets, daily range): BP systolic 129–165; BP diastolic 64–86
[2024-05-26] MEDS: ANCEF 10 IV ×3 (04:46→21:33)
[2024-05-26] MEDS: DILAUDID 0.5 MG IV (04:48)
[2024-05-26] MEDS: ZOFRAN 4 MG IV ×2 (04:56→17:50)
--- NOTE | 2024-05-26 07:31 | W.PN.URO.CBU ---
Today's Communication / Plan
-
continue percs and antibx
Assessment / Plan
-
New right hydronephrosis - s/p right PCN
ABRAM - improving
Urosepsis
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
Prostate cancer s/p XRT (10/2018)
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
05/23: s/p right PCN placement by IR
slowly improving
wbc normalized- fever curve appears to be improving
some penile dischage expected
plan is for UTI treatment- maintain bilateral percs and outpt f/u with dr andrade after discharge
Diagnosis
-
Date of Service: May 26, 2024
-
Patient Diagnosis:
New right hydronephrosis
ABRAM
Urosepsis
Prostate cancer s/p XRT
Residual pelvic fixation and scarring from XRT x2, LAR
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
05/23: s/p right PCN placement by IR
Subjective
-
pt feels somewhat better
last temp spike about 24hrs ago
wbc and cr level declining
ucx + for staph
Objective
-
Vital Signs
Temp Pulse Resp BP Pulse Ox
99.7 F 94 14 129/64 94
05/26/24 03:22 05/26/24 04:00 05/26/24 04:00 05/26/24 04:00 05/26/24 00:17
Intake and Output
05/25/24 05/26/24 05/27/24
06:59 06:59 06:59
Intake Total 2920 / 2920 4190 / 4190
Output Total 1725 / 1725 3035 / 3035
Balance 1195 / 1195 1155 / 1155
Intake:
Oral fluids 480 / 480 2380 / 2380
IV fluids (Total) 1900 / 1900 1800 / 1800
IV piggybacks 540 / 540
Amount instilled into Urinary
Drain (Total)
Right Nephrostomy
Output:
Liquid stool amount 700 / 700
Colostomy 700 / 700
Urinary Drain Output (Total) 1725 / 1725 2335 / 2335
Left Nephrostomy 1450 / 1450 1725 / 1725
Right Nephrostomy 275 / 275 610 / 610
Other:
How many times incontinent 2
SATURATED amount urine
Review of Systems
-
Constitutional: Fatigue
Respiratory: No Symptoms
Cardiac: No Symptoms
Abdomen/GI: No Symptoms
: Other (some penile discharge)
Physical Exam
-
General - no acute distress
Abdomen - soft, non-tender, bilateral percs in place
[2024-05-26] MEDS: HEPARIN 5000 UNITS SC (08:38)
[2024-05-26] MEDS: OXYCONTIN (CONTROLLED RELEASE) 40 MG PO ×2 (08:38→21:08)
[2024-05-26] MEDS: VITAMIN D3 (cholecalciferol) 50 MCG PO (08:38)
[2024-05-26] MEDS: MIRALAX PO (08:38)
--- NOTE | 2024-05-26 09:06 | W.PN.ID1 ---
Date of Service
Date of Service: May 26, 2024
Today's Communication
Continue antibiotics.
Assessment / Plan
Complicated urinary tract infection
Obstructive uropathy; status post PCN placement
Leukocytosis
Fever
Suspected right-sided pyelonephritis
A-fib
HTN
Dyslipidemia
Prostate cancer
Hx obstructive uropathy of distal left ureter (secondary to XRT)
Rectal CA (1992)
Hx bowel obstruction
Asthma
Recommendations:
Temperature curve overall improved. Urine cultures with MSSA.
Continue with cefazolin.
Continue to monitor temperatures.
Trend white count.
����������������������������������������������������������
Chief Complaint
-: Fever and UTI
Subjective / Review of Systems
Review of Systems: No Fever and No Chills
Vital Signs / Physical Exam
Vital Signs
Vital Signs
Temp Pulse Resp BP Pulse Ox
99.7 F 94 14 129/64 94
05/26/24 03:22 05/26/24 04:00 05/26/24 04:00 05/26/24 04:00 05/26/24 00:17
Physical Exam
Constitutional: No Acute Distress, Comfortable and Non-toxic
Eyes: Sclera Anicteric
Cardiovascular: S1/S2; Negative S3/S4
Pulmonary: Non Labored
Gastrointestinal: Soft and Non Distended
Genito-Urinary: Clear Urine and Other (Bilateral PCNs in place.); Negative Turbid Urine
Extremities: Negative Edema
Neurological: Awake and Alert
Psychological: Calm
Objective Data
Lab Data
PT 16.3 Sec (11.4-14.6) H 05/23/24 15:45
INR 1.30 05/23/24 15:45
Estimated Creat Clear 51 ml/min 05/25/24 04:56
Lactic Acid Cancelled 05/22/24 18:15
Total Bilirubin 0.5 mg/dl (0.2-1.3) 05/23/24 09:04
AST 19 U/L (17-59) 05/23/24 09:04
ALT 13 U/L (0-50) 05/23/24 09:04
Alkaline Phosphatase 81 U/L (38-126) 05/23/24 09:04
Most recent labs reviewed.
Micro Results:
05/22/24 18:03 Blood Culture - Preliminary
Blood/Venous No Growth in 72 hours- Final report to follow
05/22/24 15:23 Blood Culture - Preliminary
Blood/Venous No Growth in 72 hours- Final report to follow
05/23/24 19:30 Urine Culture - Preliminary
Urine Sparse growth, too young to be identified. Further results
to follow.
05/23/24 03:42 Urine Culture - Final
Urine S aureus-Methicillin Sensitive
05/24/24 00:00 MRSA Screen - Final
Nose No Methicillin Resistant Staphylococcus aureus isolated.
05/22/24 19:40 Urine Culture - Final
Urine
Imaging:
05/22/2024 CT abdomen/pelvis without contrast: Moderate right-sided hydroureteronephrosis extending to the level of the presacral soft tissue is noted. No obstructing stone is visualized. A left-sided percutaneous nephrostomy tube is noted with
the tip in the inferior calyx. No left-sided hydronephrosis seen. He distended gallbladder without CT findings of acute cholecystitis is noted. Please see full dictation for additional detail.
[2024-05-26 09:50] LABS: % Basophils 0.2 % (0-2); % Eosinophils 2.2 % (0-6); % Immature Granulocytes 0.2 % (0-0.5); % Lymphocytes 16.5 % (20.5-51.1); % Monocytes 16.7 % (1.7-9.3); % Neutrophils 64.2 % (42.2-75.2); Absolute Eosinophils 0.1 10^3/uL (0-0.7); Absolute Lymphocytes 0.9 10^3/uL (1.2-3.4); Absolute Monocytes 0.9 10^3/uL (0.1-0.6); Absolute Neutrophils 3.5 10^3/uL (1.4-6.5); Hematocrit 25.3 % (39.0-52.0); Hemoglobin 8.1 g/dL (13.0-18.0); Mean Corpuscular Hgb 27.4 pg (27.0-31.0); Mean Corpuscular Volume 85.5 fL (80.0-94.0); Mean Platelet Volume 9.8 fL (7.4-10.4); Nucleated Red Blood Cells % 0 % (-); Platelet Count 134 10^3/uL (130-400); Red Blood Cell Count 2.96 10^6/uL (4.70-6.10); Red Cell Dist. Width 15.4 % (11.5-14.5); White Blood Cell Count 5.5 10^3/uL (4.8-10.8)
[2024-05-26 09:59] LABS: Blood Urea Nitrogen 31 mg/dl (9-20); Calcium 8.6 mg/dl (8.4-10.2); Carbon Dioxide 27 mmol/L (22-30); Chloride 100 mmol/L (98-107); Estimated Creatinine Clearance 67 ml/min; Glucose 154 mg/dl (70-99); Potassium 3.7 mmol/L (3.5-5.1); Sodium 135 mmol/L (135-145); eGFR > 60.00
--- NOTE | 2024-05-26 10:48 | W.PN.GI.CBS2 ---
Today's Communication / Plan
-
PLAN:
etiology of constipation likely chronic issues with hx retroperitoneal fibrosis, chronic narcotic use vs other and currently exacerbated with urologic issues ? ileus
He had bowel movement from the colostomy on the miralax. Okay to continue the MiraLAX twice day and also reports taking lactulose 15 mL at home every other day. Once he has regular bowel movements through the ostomy, if he wants to cut back on the
MiraLAX to once a day, that should be okay. He can titrate the laxative based on his bowel pattern.
No further workup from a GI standpoint
pt will need eventual colonoscopy for follow up as canceled in November
Will sign off, please call back if needed. OP follow up with Dr. Husain
Assessment / Plan
-
Pt is a 64yo present rectal CA with resection/colostomy failed reversal, Prostate CA with prior aborted radial prostatectomy at [facility] with subsequent radiation, urinary retention, ureteral obstruction and left hydro with nephrostomy placement, TURP,
incontinence, HTN, hypercholesteremia, afib with prior ablation, asthma now presents with onset of abdominal pain with vomiting and fever 104 with concern for sepsis with noted right sided hydro possible passed stoned with ABRAM and leukocytosis on
admission. After admission pt went to right nephrostomy tube with purulent drainage. Asked to see for constipation and no stools for 4 days. In review with patient this is a chronic issues. He typically has a stool every 2-3 days. He will take
Miralax daily and then add Dulcolax and lactulose as needed. He does not use enemas in ostomy. He also admit to chronic nausea daily and abdominal pain mostly on left side but noted with right sided pain on admission. Last colonoscopy [address] Yusuf was normal. He was seen by Dr. Husain in September with concern for opioid induced constipation with no improvement with prior trial of Relistor or Movantik. He was scheduled for colonoscopy in November but did cancel.
-sepsis with fever/leukocytosis pyelonephritis/possible passed stone
-right sided abdominal pain on admission with hydro and placement of right nephrostomy tube
-constipation with hx chronic constipation
-ABRAM on admission
-rectal CA with resection/colonoscopy and radiation with failed reversal
-chronic pain with chronic narcotic use
other medical problems:
-prostate CA with aborted failed radial prostatectomy and radiation
-chronic left nephrostomy
--TURP
-incontinence
-afib with prior ablation
-asthma
-family hx colon CA
PLAN:
etiology of constipation likely chronic issues with hx retroperitoneal fibrosis, chronic narcotic use vs other and currently exacerbated with urologic issues ? ileus
He had bowel movement from the colostomy on the miralax. Okay to continue the MiraLAX twice day and also reports taking lactulose 15 mL at home every other day. Once he has regular bowel movements through the ostomy, if he wants to cut back on the
MiraLAX to once a day, that should be okay. He can titrate the laxative based on his bowel pattern.
No further workup from a GI standpoint
pt will need eventual colonoscopy for follow up as canceled in November
Will sign off, please call back if needed. OP follow up with Dr. Husain
Subjective
Subjective
Date of Service: May 26, 2024
Patient continues to complain of right-sided abdominal discomfort, no nausea or vomiting. Had 2 formed stool from the ostomy site. No fevers or chills. Tolerating regular diet.
Objective
Data Reviewed
Laboratory Data:
Laboratory Results
05/26/24 09:38
05/26/24 09:38
Laboratory Results
PT 16.3 Sec (11.4-14.6) H 05/23/24 15:45
INR 1.30 05/23/24 15:45
Magnesium 1.9 mg/dl (1.6-2.3) 05/23/24 21:43
Total Bilirubin 0.5 mg/dl (0.2-1.3) 05/23/24 09:04
AST 19 U/L (17-59) 05/23/24 09:04
ALT 13 U/L (0-50) 05/23/24 09:04
Alkaline Phosphatase 81 U/L (38-126) 05/23/24 09:04
Lipase 47 U/L (23-300) 05/22/24 14:20
Vital Signs and I&O:
Vital Signs
Temp Pulse Resp BP Pulse Ox
98.8 F 94 14 129/64 94
05/26/24 07:55 05/26/24 04:00 05/26/24 04:00 05/26/24 04:00 05/26/24 00:17
I&O
05/25/24 05/26/24 05/27/24
06:59 06:59 06:59
Intake Total 2920 / 2920 4190 / 4190
Output Total 1725 / 1725 3035 / 3035 150 / 150
Balance 1195 / 1195 1155 / 1155 -150 / -150
Physical Exam
Physical Exam
GI: Soft, Non Distended and Tender (Discomfort in the right abdomen without guarding or rigidity)
[2024-05-26] MEDS: NSS 1000 IV ×2 (13:24→21:10)
--- NOTE | 2024-05-26 14:21 | CON.GS ---
Medical History
-
Chief Complaint: right sided abdominal pain
History of Present Illness:
Mr. Harley is a 64 yo male with a h/o afib s/p ablation, prostate cancer s/p aborted prostatectomy with subsequent XRT, left hydronephrosis maintained with chronic left PCN, rectal cancer with initial resection/end colostomy in 1993 with unsuccessful
reversal attempt, eventual removal of anus/rectum (notes 6 surgeries total), appendectomy and prior SBO with retroperitoneal fibrosis who presented 4 days ago with fevers and new right sided abdominal pain. He notes his pain is usually on the left
and takes chronic opioids. He was noted to have new right hydronephrosis, ABRAM with UTI and fevers and a new right PCN was placed with urology following. He had low outputs from his ostomy initially and was followed by gastroenterology and placed on
a bowel regimen with good stool output since that time, flatus noted in ostomy appliance. He does note the pain to the right abdomen is still present although improved. He has been afebrile for >24h.
Past Medical History
Past Medical History: Arrhythmias (aifb s/p ablation), Cancer (rectal, prostate (XRT, surgery aborted)), HTN and Other (SBO)
Past Surgical History: Appendectomy, Bowel Resection (Initial resection/end colostomy in 1993 for cancer, unsuccessful reversal attempts, eventual removal of anus/rectum) and Urological (Attempted radical prostatectomy: aborted, TURP, chronic left
nephrostomy new right nephrostomy)
Social History
Tobacco: Non-Smoker
Alcohol: Occasional
Family History
Family History: Reviewed & Not Pertinent
Allergies / Home Medications
Allergy/AdvReac Type Severity Reaction Status Date / Time
Beef Containing Products Allergy wheezing Verified 05/23/24 20:50
grass pollen Allergy sneezing Verified 05/23/24 20:50
ibuprofen [Ibuprofen] Allergy BLEEDING Verified 05/22/24 14:07
mold Allergy sneezing Verified 05/23/24 20:50
wheat Allergy Shortness Verified 05/23/24 20:50
of Breath
�Medication �Instructions �Recorded �Confirmed �Type
polyethylene glycol 3350 17 gram 17 grams PO BIDPRN PRN constipation 05/02/21 05/22/24 History
oral powder packet
albuterol sulfate 90 mcg/actuation 1 puff inhalation Q6HPRN PRN SOB 08/06/21 05/22/24 History
aerosol inhaler (Ventolin HFA)
oxycodone-acetaminophen 10 mg-325 1 tab PO Q8HPRN PRN severe pain 12/07/22 05/22/24 History
mg tablet
amitriptyline 10 mg tablet 10 mg PO HSPRN PRN sleep 05/22/24 05/22/24 History
cholecalciferol (vitamin D3) 50 50 mcg PO DAILY 05/22/24 05/22/24 History
mcg (2,000 unit) tablet (Vitamin
D3)
lactulose 10 gram/15 mL oral 15 ml PO DAILYPRN PRN constipation 05/22/24 05/25/24 History
solution
magnesium hydroxide 400 mg/5 mL 2,400 mg PO DAILY 05/22/24 05/25/24 History
oral suspension (Dulcolax
(magnesium hydroxide))
metoprolol tartrate 25 mg tablet 25 mg PO DAILYPRN PRN heartrate 05/22/24 05/22/24 History
ondansetron 8 mg disintegrating 16 mg PO [id number] PRN nausea 05/22/24 05/22/24 History
tablet
oxycodone 40 mg tablet,crush 40 mg PO BID 05/22/24 05/22/24 History
resistant,extended release 12 hr
(OxyContin)
therapeutic multivitamin 1 tab PO DAILYPRN PRN supplement 05/22/24 05/22/24 History
Review of Systems
-
History Source: Patient and Family
All other systems: Negative unless noted
A 10 point review of systems was completed, and was negative except as per HPI.
Physical Exam
Vital Signs
Temp Pulse Resp BP Pulse Ox
98.8 F 66 12 136/70 94
05/26/24 07:55 05/26/24 12:00 05/26/24 12:00 05/26/24 12:00 05/26/24 00:17
Body Mass Index (BMI) 27.6
Lab Results
05/26/24 09:38
05/26/24 09:38
WBC 5.5 10^3/uL (4.8-10.8) 05/26/24 09:38
Hgb 8.1 g/dL (13.0-18.0) L 05/26/24 09:38
Hct 25.3 % (39.0-52.0) L 05/26/24 09:38
Plt Count 134 10^3/uL (130-400) 05/26/24 09:38
Abs Immat Gran (auto) 0.0 10^3/uL (0-0.05) 05/26/24 09:38
Neutrophils % 64.2 % (42.2-75.2) 05/26/24 09:38
Physical Exam
General: Well Developed and Well Nourished
HEENT: Moist Mucous Membranes
Respiratory: Non Labored Respirations
GI: Soft and Tender (mild RLQ)
Genito-urinary: Other (BL nephrostomy tubes with clear, yellow urine)
Skin: Warm and Dry
Neuro: Awake, Alert and AO x 3
Psych: Calm
Assessment / Plan
-
64 yo male with a h/o afib s/p ablation, prostate cancer s/p aborted prostatectomy with subsequent XRT, left hydronephrosis/ureteral stricture maintained with chronic left PCN, rectal cancer with initial resection/end colostomy in 1993 with
unsuccessful reversal attempt and eventual removal of anus/rectum, appendectomy and prior SBO with retroperitoneal fibrosis who presented 4 days ago with fevers and new right sided abdominal pain. He was noted to have new right hydronephrosis, ABRAM
with UTI and fevers and a new right PCN was placed with urology following. He had low outputs from his ostomy initially and was followed by gastroenterology and placed on a bowel regimen with good stool output since that time, flatus noted in ostomy
appliance. He does note the pain to the right abdomen is still present although improved. He has been afebrile for >24h.
AFVSS. CT imaging reviewed without sign of obstruction, bowel threat or compromise. Ostomy now productive of stool/flatus. Suspect constipation with chronic opioids. Suspect RLQ pain is secondary to ongoing urologic processes vs element of
constipation, resolving/improving overall.
--Continue bowel regimen
--No plans for surgical intervention
--Medical management as per primary team
Colorectal service will sign off, please call if questions/concerns
--- NOTE | 2024-05-26 17:42 | W.PN.HOSP.TC ---
Today's Communication/Plan
-
Continue IV antibiotics
Doing better
Transfer to tele
Assessment / Plan
Assessment / Plan
Physical Exam
General: Not in acute distress.
HEENT: Normocephalic, Moist mucous membranes
Respiratory: Clear to Auscultation Bilaterally
Cardiac: S1/S2 and Regular Rhythm. Regular Rate.
GI: Soft, Non Tender, Non Distended and Normal Bowel Sounds
Genito-urinary: Bilateral PCN tubes in place
Musculoskeletal: No Cyanosis and No Edema
Skin: Warm. Dry.
Neuro: Nonfocal/grossly intact
Assessment/Plan
64-year-old male history of colorectal cancer status post colectomy with colostomy, prostate cancer status post TURP status post hormonal/radiation therapy followed at [facility], chronic left hydroureteronephrosis secondary to radiation with left
nephrostomy tube, here for sepsis secondary to presumed pyelonephritis of right kidney. CT imaging showed right hydroureteronephrosis without obstructing stone presumably passed stone. IV fluids, blood culture, urine culture, ceftriaxone, urology
consulted.
#Sepsis (fever, tachycardia, leukocytosis) secondary to right-sided pyelonephritis/possible passed right-sided ureteral stone
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
#Significant Right Renal Obstruction s/p Right PCN tube placement
-CT abdomen pelvis showed moderate right-sided hydroureteronephrosis extending to the level of the presacral soft tissue/scarring without obstructing stone
-Urinalysis from left nephrostomy tube shows 11-15 WBC, +2 leukocyte Estrace
-Drainage during right PCN tube placement on 05/23/24 revealed purulence
-Maintain bilateral PCNs to drainage
-Follow blood and urine cultures -- urine culture grew MSSA
-IV fluids
-Continue IV antibiotics with Ancef. Vancomycin and Ceftriaxone have been stopped.
-ID consulted, appreciate their evaluation and recommendations
-Urology consulted, appreciate their evaluation and recommendations
-Follow-up with urology in 2-[address] w/ IV contrast + antegrade nephrostogram to assess right ureteral anatomy
#Shortness of breath, tachycardia 05/23/24 to 05/24/24 - RESOLVED
#Elevated D-dimer - unreliable in the setting of sepsis/history of cancer.
-Given cancer history, concern for DVT/PE
-But with renal function cannot do CTA
-Consulted pulmonary regarding a possible V/Q scan if needed
-Echocardiogram with no RV dilation
-Lower extremity Dopplers - no DVT present
#Acute kidney injury secondary to right-sided renal obstruction/sepsis
#Hyperkalemia
-Creatinine of 2.1-->2.4--->....--->1.8-->1.6
-IV fluids
-PCN placement on the right side has been completed
#Small PFO and mildly dilated aortic root (4.3 cm) on echocardiogram
-Discussed with cardiothoracic surgery: this can be followed up outpatient. There is nothing needed for a 4.3cm root other than sequential/annual monitoring.
-Dr. Bay Greer said via [facility] on 05/25/24 his office will arrange outpatient follow-up
#History of prostate cancer status post TURP/hormonal/radiation therapy with chronic left hydroureteronephrosis from radiation with chronic left nephrostomy tube
#History of rectal CA 30 years ago s/p resection/end colostomy/XRT and unsuccessful reversal attempts. Also hx prostate CA, additional XRT and subsequent retroperitoneal fibrosis, ureteral obstruction s/p indwelling L nephrostomy tube
-As of 05/24/24, no output in the colostomy bag
-Not improved with Relistor and Movantik in past
-If not effective consider lactulose, mag citrate vs enema vs ostomy if continued issues
-Consulted GI, appreciate eval and recs
#Colorectal cancer status post colectomy with colostomy
Chronic pain
-Continue Percocet
Right-sided abdominal pain likely associated with right-sided hydronephrosis, possibly due to retroperitoneal fibrosis;
Constipation
-Per GI: continue the MiraLAX twice day and patient also reports taking lactulose 15 mL at home every other day. Once he has regular bowel movements through the ostomy, if he wants to cut back on the MiraLAX to once a day,
that should be okay. He can titrate the laxative based on his bowel pattern.
-Appreciate colorectal surgery, nothing to do from their standpoint
Atrial fibrillation status post ablation
-Continue metoprolol
Essential hypertension
Chronic anemia
Asthma
-Continue albuterol
Anxiety/depression
-Continue amitriptyline
Full code
DVT prophylaxis�Lovenox subq (watch renal function and if renal function gets worse, can switch back to Heparin subq)
Regular Diet
Anticipated Discharge: > 48 hours
Subjective/Interval History
-
Date of Service: May 26, 2024
Patient was seen and examined. He reported that he was doing better today, denied any new symptoms or complaints.
Objective Data
-
Labs:
Laboratory Results
05/26/24
09:38
WBC 5.5
Hgb 8.1 L
Hct 25.3 L
Plt Count 134
Sodium 135
Potassium 3.7
Chloride 100
Carbon Dioxide 27
BUN 31 H
Creatinine 1.2
Glucose 154 H
Calcium 8.6
Vital Signs:
Vital Signs
Temp Pulse Resp BP Pulse Ox
98.8 F 77 13 147/66 94
05/26/24 07:55 05/26/24 16:00 05/26/24 16:00 05/26/24 16:00 05/26/24 00:17
I&O
05/25/24 05/26/24 05/27/24
06:59 06:59 06:59
Intake Total 2920 / 2920 4190 / 4190
Output Total 1725 / 1725 3035 / 3035 150 / 150
Balance 1195 / 1195 1155 / 1155 -150 / -150
[2024-05-26] MEDS: LOVENOX 40 MG SC (18:32)
[2024-05-26] MEDS: LOVENOX SC (18:33)
[2024-05-26] MEDS: MIRALAX 17 GRAMS PO (21:08)
[2024-05-27 04:13] VITALS: BP 153/79
[2024-05-27] MEDS: ANCEF 10 IV ×2 (05:10→13:12)
[2024-05-27 07:25] VITALS: BP 158/73
[2024-05-27] MEDS: VITAMIN D3 (cholecalciferol) 50 MCG PO (08:22)
[2024-05-27] MEDS: MIRALAX 17 GRAMS PO ×2 (08:22→20:47)
[2024-05-27] MEDS: OXYCONTIN (CONTROLLED RELEASE) 40 MG PO ×2 (08:22→19:16)
[2024-05-27 08:25] LABS: % Basophils 0.3 % (0-2); % Eosinophils 3.2 % (0-6); % Immature Granulocytes 0.5 % (0-0.5); % Lymphocytes 25.5 % (20.5-51.1); % Monocytes 15.4 % (1.7-9.3); % Neutrophils 55.1 % (42.2-75.2); Absolute Eosinophils 0.2 10^3/uL (0-0.7); Absolute Lymphocytes 1.5 10^3/uL (1.2-3.4); Absolute Monocytes 0.9 10^3/uL (0.1-0.6); Absolute Neutrophils 3.2 10^3/uL (1.4-6.5); Hematocrit 24.4 % (39.0-52.0); Mean Corp Hgb Conc. 32.8 g/dL (33.0-37.0); Mean Corpuscular Volume 82.4 fL (80.0-94.0); Mean Platelet Volume 9.3 fL (7.4-10.4); Nucleated Red Blood Cells % 0 % (-); Platelet Count 159 10^3/uL (130-400); Red Blood Cell Count 2.96 10^6/uL (4.70-6.10); Red Cell Dist. Width 15.2 % (11.5-14.5); White Blood Cell Count 5.9 10^3/uL (4.8-10.8)
[2024-05-27 08:43] LABS: Blood Urea Nitrogen 24 mg/dl (9-20); Calcium 8.6 mg/dl (8.4-10.2); Carbon Dioxide 26 mmol/L (22-30); Chloride 101 mmol/L (98-107); Estimated Creatinine Clearance 73 ml/min; Glucose 99 mg/dl (70-99); Potassium 3.9 mmol/L (3.5-5.1); Sodium 139 mmol/L (135-145); eGFR > 60.00
[2024-05-27 11:45] VITALS: BP 157/81
[2024-05-27] MEDS: DUPHALAC/CHRONULAC 10 GRAMS PO (13:33)
[2024-05-27] MEDS: UNASYN IV ×2 (14:59→20:47)
[2024-05-27 15:45] VITALS: BP 152/66
--- NOTE | 2024-05-27 16:27 | W.PN.HOSP.TC ---
Today's Communication/Plan
-
Continue IV antibiotics
Assessment / Plan
Assessment / Plan
Physical Exam
General: Not in acute distress.
HEENT: Normocephalic, Moist mucous membranes
Respiratory: Clear to Auscultation Bilaterally
Cardiac: S1/S2 and Regular Rhythm. Regular Rate.
GI: Soft, Non Tender, Non Distended and Normal Bowel Sounds. Colostomy bag.
Genito-urinary: Bilateral PCN tubes in place
Musculoskeletal: No Cyanosis and No Edema
Skin: Warm. Dry.
Neuro: Nonfocal/grossly intact
Assessment/Plan
64-year-old male history of colorectal cancer status post colectomy with colostomy, prostate cancer status post TURP status post hormonal/radiation therapy followed at [place], chronic left hydroureteronephrosis secondary to radiation with left
nephrostomy tube, here for sepsis secondary to presumed pyelonephritis of right kidney. CT imaging showed right hydroureteronephrosis without obstructing stone presumably passed stone. IV fluids, blood culture, urine culture, ceftriaxone, urology
consulted.
#Sepsis (fever, tachycardia, leukocytosis) secondary to right-sided pyelonephritis/possible passed right-sided ureteral stone
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
#Significant Right Renal Obstruction s/p Right PCN tube placement
-CT abdomen pelvis showed moderate right-sided hydroureteronephrosis extending to the level of the presacral soft tissue/scarring without obstructing stone
-Urinalysis from left nephrostomy tube shows 11-15 WBC, +2 leukocyte Estrace
-Drainage during right PCN tube placement on 05/23/24 revealed purulence
-Maintain bilateral PCNs to drainage
-Follow blood and urine cultures -- urine culture grew MSSA
-IV fluids
-Continue IV antibiotics with Unasyn. IV Ancef stopped. Vancomycin and Ceftriaxone have been stopped.
-ID consulted, appreciate their evaluation and recommendations
-Urology consulted, appreciate their evaluation and recommendations
-Follow-up with urology in 2-[address] w/ IV contrast + antegrade nephrostogram to assess right ureteral anatomy
#Shortness of breath, tachycardia 05/23/24 to 05/24/24 - RESOLVED
#Elevated D-dimer - unreliable in the setting of sepsis/history of cancer.
-Given cancer history, was concerned for DVT/PE
-But with renal function cannot do CTA
-Consulted pulmonary regarding a possible V/Q scan if needed
-Echocardiogram with no RV dilation
-Lower extremity Dopplers - no DVT present
-No further signs or symptoms of DVT/PE, VTE is unlikely
#Acute kidney injury secondary to right-sided renal obstruction/sepsis
#Hyperkalemia
-Creatinine of 2.1-->2.4--->....--->1.8-->1.6------>1.1
-IV fluids
-PCN placement on the right side has been completed
#Small PFO and mildly dilated aortic root (4.3 cm) on echocardiogram
-Discussed with cardiothoracic surgery: this can be followed up outpatient. There is nothing needed for a 4.3cm root other than sequential/annual monitoring.
-Dr. Bay Greer said via [facility] on 05/25/24 his office will arrange outpatient follow-up
#History of prostate cancer status post TURP/hormonal/radiation therapy with chronic left hydroureteronephrosis from radiation with chronic left nephrostomy tube
#History of rectal CA 30 years ago s/p resection/end colostomy/XRT and unsuccessful reversal attempts. Also hx prostate CA, additional XRT and subsequent retroperitoneal fibrosis, ureteral obstruction s/p indwelling L nephrostomy tube
-As of 05/24/24, no output in the colostomy bag
-Not improved with Relistor and Movantik in past
-If not effective consider lactulose, mag citrate vs enema vs ostomy if continued issues
-Consulted GI, appreciate eval and recs
#Colorectal cancer status post colectomy with colostomy
#Chronic pain
-Continue Percocet
#Right-sided abdominal pain likely associated with right-sided hydronephrosis, possibly due to retroperitoneal fibrosis;
#Constipation
-Per GI: continue the MiraLAX twice day and patient also reports taking lactulose 15 mL at home every other day. Once he has regular bowel movements through the ostomy, if he wants to cut back on the MiraLAX to once a day,
that should be okay. He can titrate the laxative based on his bowel pattern.
-Appreciate colorectal surgery, nothing to do from their standpoint
Atrial fibrillation status post ablation
-Continue metoprolol
Essential hypertension
Chronic anemia
Asthma
-Continue albuterol
Anxiety/depression
-Continue amitriptyline
Full code
DVT prophylaxis�Lovenox subq (watch renal function and if renal function gets worse, can switch back to Heparin subq)
Regular Diet
Anticipated Discharge: 24 - 48 hours
Subjective/Interval History
-
Date of Service: May 27, 2024
Patient was seen and examined. He reported that his abdominal pain is somewhat better. He denied any other symptoms or complaints.
Objective Data
-
Labs:
Laboratory Results
05/27/24
08:06
WBC 5.9
Hgb 8.0 L
Hct 24.4 L
Plt Count 159
Sodium 139
Potassium 3.9
Chloride 101
Carbon Dioxide 26
BUN 24 H
Creatinine 1.1
Glucose 99
Calcium 8.6
Vital Signs:
Vital Signs
Temp Pulse Resp BP Pulse Ox
98.8 F 75 16 152/66 95
05/27/24 15:45 05/27/24 15:45 05/27/24 15:45 05/27/24 15:45 05/27/24 15:45
I&O
05/26/24 05/27/24 05/28/24
06:59 06:59 06:59
Intake Total 4190 / 4190 960 / 960
Output Total 3035 / 3035 850 / 850
Balance 1155 / 1155 110 / 110
[2024-05-27] MEDS: LOVENOX 40 MG SC (17:42)
[2024-05-27] MEDS: ZOFRAN 4 MG IV (17:58)
[2024-05-27 19:00] VITALS: BP 162/83
[2024-05-27] MEDS: VISBIOME 1 CAP PO (22:00)
[2024-05-27 23:57] VITALS: BP 153/77
[2024-05-28] MEDS: UNASYN IV ×3 (02:45→13:43)
[2024-05-28 03:05] VITALS: BP 169/84
[2024-05-28 07:15] VITALS: BP 159/80
[2024-05-28 07:18] LABS: Hemoglobin 8.7 g/dL (13.0-18.0); Mean Corp Hgb Conc. 32.2 g/dL (33.0-37.0); Mean Corpuscular Hgb 26.4 pg (27.0-31.0); Mean Corpuscular Volume 82.1 fL (80.0-94.0); Mean Platelet Volume 9.9 fL (7.4-10.4); Platelet Count 196 10^3/uL (130-400); Red Blood Cell Count 3.29 10^6/uL (4.70-6.10); White Blood Cell Count 7.2 10^3/uL (4.8-10.8)
[2024-05-28 08:06] LABS: % Basophils 0.3 % (0-2); % Eosinophils 4.2 % (0-6); % Immature Granulocytes 1.3 % (0-0.5); % Lymphocytes 28.8 % (20.5-51.1); % Monocytes 11.9 % (1.7-9.3); % Neutrophils 53.5 % (42.2-75.2); Absolute Eosinophils 0.3 10^3/uL (0-0.7); Absolute Immature Granulocytes 0.1 10^3/uL (0-0.05); Absolute Lymphocytes 2.1 10^3/uL (1.2-3.4); Absolute Monocytes 0.9 10^3/uL (0.1-0.6); Absolute Neutrophils 3.8 10^3/uL (1.4-6.5); Nucleated Red Blood Cells % 0 % (-)
[2024-05-28 08:51] LABS: Blood Urea Nitrogen 20 mg/dl (9-20); Calcium 8.8 mg/dl (8.4-10.2); Carbon Dioxide 25 mmol/L (22-30); Chloride 100 mmol/L (98-107); Estimated Creatinine Clearance 81 ml/min; Glucose 95 mg/dl (70-99); Magnesium 1.6 mg/dl (1.6-2.3); Potassium 3.9 mmol/L (3.5-5.1); Sodium 140 mmol/L (135-145); eGFR > 60.00
[2024-05-28] MEDS: OXYCONTIN (CONTROLLED RELEASE) 40 MG PO (09:00)
[2024-05-28] MEDS: MIRALAX 17 GRAMS PO (09:01)
[2024-05-28] MEDS: VITAMIN D3 (cholecalciferol) 50 MCG PO (09:02)
--- NOTE | 2024-05-28 10:42 | CM ---
Reviewed chart, patient remains at independent level, functionally. Would like VN through [facility] when medically cleared for discharge.
Plan: Case management will continue to follow and assist with discharge planning. Home with [facility].
[2024-05-28 11:10] VITALS: BP 153/74
--- NOTE | 2024-05-28 13:18 | W.PN.ID1 ---
Date of Service
Date of Service: May 28, 2024
Today's Communication
Continue antibiotics. See below�
Assessment / Plan
Complicated urinary tract infection
Obstructive uropathy; status post PCN placement
Leukocytosis
Fever
Suspected right-sided pyelonephritis
A-fib
HTN
Dyslipidemia
Prostate cancer
Hx obstructive uropathy of distal left ureter (secondary to XRT)
Rectal CA (1992)
Hx bowel obstruction
Asthma
Recommendations:
Temperature curve overall improved. Urine cultures with MSSA, Leuconostoc and strep species.
Antibiotics transitioned to Unasyn yesterday.
Continue antibiotic therapy and additional 12 days.
Transition to oral Augmentin 875 mg p.o. twice daily at time of discharge.
No objection to discharge from Infectious Diseases standpoint.
Outpatient follow-up with Urology
����������������������������������������������������������
Chief Complaint
-: Fever and UTI
Subjective / Review of Systems
Patient seen and examined. Reports overall feeling well. No fevers or chills.
Vital Signs / Physical Exam
Vital Signs
Vital Signs
Temp Pulse Resp BP Pulse Ox
98.4 F 79 16 153/74 94
05/28/24 11:10 05/28/24 11:10 05/28/24 11:10 05/28/24 11:10 05/28/24 11:10
Physical Exam
Constitutional: No Acute Distress, Comfortable and Non-toxic
Eyes: Sclera Anicteric
Pulmonary: Non Labored
Gastrointestinal: Soft and Non Distended
Genito-Urinary: Clear Urine and Other (Bilateral PCNs in place.); Negative Turbid Urine
Extremities: Negative Edema
Neurological: Awake and Alert
Psychological: Calm
Objective Data
Lab Data
Lab Results
05/28/24 06:37
05/28/24 06:37
PT 16.3 Sec (11.4-14.6) H 05/23/24 15:45
INR 1.30 05/23/24 15:45
Estimated Creat Clear 81 ml/min 05/28/24 06:37
Lactic Acid Cancelled 05/22/24 18:15
Total Bilirubin 0.5 mg/dl (0.2-1.3) 05/23/24 09:04
AST 19 U/L (17-59) 05/23/24 09:04
ALT 13 U/L (0-50) 05/23/24 09:04
Alkaline Phosphatase 81 U/L (38-126) 05/23/24 09:04
Most recent labs reviewed.
Micro Results:
05/23/24 19:30 Urine Culture - Final
Urine Leuconostoc
Streptococcus species
05/22/24 18:03 Blood Culture - Final
Blood/Venous No Growth - Final Report
05/22/24 15:23 Blood Culture - Final
Blood/Venous No Growth - Final Report
05/23/24 03:42 Urine Culture - Final
Urine S aureus-Methicillin Sensitive
05/24/24 00:00 MRSA Screen - Final
Nose No Methicillin Resistant Staphylococcus aureus isolated.
05/22/24 19:40 Urine Culture - Final
Urine
Imaging:
05/22/2024 CT abdomen/pelvis without contrast: Moderate right-sided hydroureteronephrosis extending to the level of the presacral soft tissue is noted. No obstructing stone is visualized. A left-sided percutaneous nephrostomy tube is noted with
the tip in the inferior calyx. No left-sided hydronephrosis seen. He distended gallbladder without CT findings of acute cholecystitis is noted. Please see full dictation for additional detail.
Care Review
Plan reviewed with: Physician (Hospitalist)
--- NOTE | 2024-05-28 14:43 | W.DS.TRANS ---
DC Summary - Ginger Farmer
-
Discharge Instructions:
Sleep Apnea Risk Intermediate
Discharge Diagnosis/Procedures Sepsis, right-sided pyelonephritis
Diet Regular
Activity As tolerated
Driving Restrictions As prior to admission
Bathing Restrictions None
Instructions:
Stand-Alone Forms:
Changes to Home Medications: No
Discharge Medications:
DC Medications w/original date entered in [facility]
albuterol sulfate 90 mcg/actuation aerosol inhaler (Ventolin HFA) 1 puff inhalation Q6HPRN PRN SOB 08/06/21
oxycodone-acetaminophen 10 mg-325 mg tablet 1 tab PO Q8HPRN PRN severe pain 12/07/22
amitriptyline 10 mg tablet 10 mg PO HSPRN PRN sleep 05/22/24
cholecalciferol (vitamin D3) 50 mcg (2,000 unit) tablet (Vitamin D3) 50 mcg PO DAILY 05/22/24
lactulose 10 gram/15 mL oral solution 15 ml PO DAILYPRN PRN constipation 05/22/24
magnesium hydroxide 400 mg/5 mL oral suspension (Dulcolax (magnesium hydroxide)) 2,400 mg PO DAILY 05/22/24
metoprolol tartrate 25 mg tablet 25 mg PO DAILYPRN PRN heartrate 05/22/24
ondansetron 8 mg disintegrating tablet 16 mg PO [id number] PRN nausea 05/22/24
oxycodone 40 mg tablet,crush resistant,extended release 12 hr (OxyContin) 40 mg PO BID 05/22/24
therapeutic multivitamin 1 tab PO DAILYPRN PRN supplement 05/22/24
amoxicillin 875 mg-potassium clavulanate 125 mg tablet 1 tab PO BID #24 tabs 05/28/24
polyethylene glycol 3350 17 gram oral powder packet (HealthyLax) 17 g PO BID #0 ea 05/28/24
Home Medication Changes
Pending Results: No
--- NOTE | 2024-05-28 14:44 | W.PN.HOSP.TC ---
Today's Communication/Plan
-
Discharge
Assessment / Plan
Assessment / Plan
Gen-AAOx3, NAD
HEENT-NC, AT, anicteric, clear oral mm
Neck-supple
CV-reg, no M, +S1/S2
Lungs-clear B/L
Abd-soft, NT, ND
Ext-no edema
Musculoskeletal-no cyanosis, clubbing
Skin-warm and dry
Neuro-grossly non-focal
Psych-calm, cooperative
Sepsis - secondary to right-sided pyelonephritis/possible passed right-sided ureteral stone. Sepsis resolved. Blood cultures negative. Urine culture with MSSA, strep species, leuconostoc.
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
Significant Right Renal Obstruction s/p Right PCN tube placement
-CT abdomen pelvis showed moderate right-sided hydroureteronephrosis extending to the level of the presacral soft tissue/scarring without obstructing stone
-Urinalysis from left nephrostomy tube shows 11-15 WBC, +2 leukocyte Estrace
-Drainage during right PCN tube placement on 05/23/24 revealed purulence
-Maintain bilateral PCNs to drainage
-Follow blood and urine cultures -- urine culture grew MSSA
-IV fluids
-Convert to Augmentin x 12 days on discharge as per infectious disease.
-ID consulted, appreciate their evaluation and recommendations
-Urology consulted, appreciate their evaluation and recommendations
-Follow-up with urology in 2-[address] w/ IV contrast + antegrade nephrostogram to assess right ureteral anatomy
Shortness of breath, tachycardia 05/23/24 to 05/24/24 - RESOLVED
Elevated D-dimer - unreliable in the setting of sepsis/history of cancer.
-Given cancer history, was concerned for DVT/PE
-But with renal function cannot do CTA
-Consulted pulmonary regarding a possible V/Q scan if needed
-Echocardiogram with no RV dilation
-Lower extremity Dopplers - no DVT present
-No further signs or symptoms of DVT/PE, VTE is unlikely
ABRAM - resolved.
Hyperkalemia -resolved.
Small PFO and mildly dilated aortic root (4.3 cm) on echocardiogram
-Discussed with cardiothoracic surgery: this can be followed up outpatient. There is nothing needed for a 4.3cm root other than sequential/annual monitoring.
-Dr. Bay Greer said via [facility] on 05/25/24 his office will arrange outpatient follow-up
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
History of rectal CA 30 years ago s/p resection/end colostomy/XRT and unsuccessful reversal attempts. Also hx prostate CA, additional XRT and subsequent retroperitoneal fibrosis, ureteral obstruction s/p indwelling L nephrostomy tube
-As of 05/24/24, no output in the colostomy bag
-Not improved with Relistor and Movantik in past
-If not effective consider lactulose, mag citrate vs enema vs ostomy if continued issues
-Consulted GI, appreciate eval and recs
Colorectal cancer status post colectomy with colostomy
Chronic pain syndrome/chronic opiate dependence
Right-sided abdominal pain likely associated with right-sided hydronephrosis, possibly due to retroperitoneal fibrosis;
Constipation
-Per GI: continue the MiraLAX twice day and patient also reports taking lactulose 15 mL at home every other day. Once he has regular bowel movements through the ostomy, if he wants to cut back on the MiraLAX to once a day,
that should be okay. He can titrate the laxative based on his bowel pattern.
-Appreciate colorectal surgery, nothing to do from their standpoint
Atrial fibrillation status post ablation
-Continue metoprolol
Essential hypertension
Chronic anemia
Asthma
-Continue albuterol
Anxiety/depression
-Continue amitriptyline
Full code
Dispo -medically stable for discharge home today. Outpatient follow-up with PCP, urology.
32 minutes spent in discharge process.
Anticipated Discharge: Today
Subjective/Interval History
-
Date of Service: May 28, 2024
Patient seen and examined. No complaints.
Objective Data
-
Labs:
Laboratory Results
05/28/24
06:37
WBC 7.2
Hgb 8.7 L
Hct 27.0 L
Plt Count 196 D
Sodium 140
Potassium 3.9
Chloride 100
Carbon Dioxide 25
BUN 20
Creatinine 1.0
Glucose 95
Calcium 8.8
Vital Signs:
Vital Signs
Temp Pulse Resp BP Pulse Ox
98.4 F 79 16 153/74 94
05/28/24 11:10 05/28/24 11:10 05/28/24 11:10 05/28/24 11:10 05/28/24 11:10
I&O
05/27/24 05/28/24 05/29/24
06:59 06:59 06:59
Intake Total 960 / 960 960 / 960
Output Total 850 / 850 3115 / 3115
Balance 110 / 110 -2155 / -2155
Review of Systems
-
History Source: Patient
All other systems: Reviewed and negative
[2024-05-28 15:43] VITALS: BP 157/87
--- NOTE | 2024-05-28 15:55 | CM ---
Patient seen bedside.
IMM reviewed.
Patient for d/c home with Maricel BOTELLO for wound care, new right nephrostomy, chronic left nephrostomy and chronic colostomy, PT eval.
Plan: home with Maricel BOTELLO, spouse kaye transport.
Maricel BOTELLO
== END 2024-05-28 17:00 | disposition home health service (06) | DRG 854 ==
LOC: 3 WEST ACU 21:46
PROVIDERS: Emergency Medicine; Hospitalist; Nurse Practitioner Family; Physician Assistant; Radiology Vascular & Interventional Radiology; Registered Nurse; ADMITTING PHYSICIAN Hospitalist; ATTENDING PHYSICIAN Hospitalist; CONSULT PHYSICIAN Internal Medicine Infectious Disease; CONSULT PHYSICIAN Specialist; CONSULT PHYSICIAN Surgery; CONSULT PHYSICIAN Urology; EMERGENCY PHYSICIAN Emergency Medicine; FAMILY PHYSICIAN Family Medicine; OTHER PHYSICIAN Internal Medicine Critical Care Medicine
PROC: 0T133JD Bypass Right Kidney Pelvis to Cutaneous with Synthetic Substitute, Percutaneous Approach (ICD-10-PCS; 2024-05-24)
DX: A41.9 Sepsis, unspecified organism (principal); F11.20 Opioid dependence, uncomplicated; N13.6 Pyonephrosis; N17.9 Acute kidney failure, unspecified; Q21.12 Patent foramen ovale; N20.0 Calculus of kidney; E87.5 Hyperkalemia; B95.61 Methicillin susceptible Staphylococcus aureus infection as the cause of diseases classified elsewhere; J45.20 Mild intermittent asthma, uncomplicated; I48.91 Unspecified atrial fibrillation; G89.29 Other chronic pain; I10 Essential (primary) hypertension; Z85.46 Personal history of malignant neoplasm of prostate; Z85.048 Personal history of other malignant neoplasm of rectum, rectosigmoid junction, and anus
CPT/HCPCS: 50432; 71045; 71046; 74176; 80048; 80053; 81003; 81015; 83605; 83690; 83735; 83880; 84484; 85025; 85027; 85379; 85610; 87040; 87070; 87077; 87086; 87147; 87186; 93005; 93306; 93970; 94640; 96361; 96374; 96375; 99152; 99153; 99285; C1729; C1769

== ENCOUNTER → 2024-07-30 12:21 | Outpatient (REF) | payer OTHER, SELFPAY ==
[2024-07-30 12:37] VITALS: BP 159/80; BP_SYST 83
== END ==
LOC: RADI 12:21
PROVIDERS: ATTENDING PHYSICIAN Radiology Vascular & Interventional Radiology; FAMILY PHYSICIAN Family Medicine
DX: Z43.6 Encounter for attention to other artificial openings of urinary tract (principal); N13.1 Hydronephrosis with ureteral stricture, not elsewhere classified; C61 Malignant neoplasm of prostate
CPT/HCPCS: 50431; 50435; C1729; C1769

== ENCOUNTER 2024-11-22 07:07 | Inpatient (IN) | payer OTHER, SELFPAY ==
[2024-11-21 22:48] VITALS: BMI 27.3
[2024-11-21 22:54] VITALS: BP 127/71
[2024-11-21 23:13] LABS: % Basophils 0.1 % (0-2); % Eosinophils 0.3 % (0-6); % Immature Granulocytes 0.6 % (0-0.5); % Lymphocytes 6.1 % (20.5-51.1); % Monocytes 10.4 % (1.7-9.3); % Neutrophils 82.5 % (42.2-75.2); Absolute Immature Granulocytes 0.1 10^3/uL (0-0.05); Absolute Lymphocytes 0.9 10^3/uL (1.2-3.4); Absolute Monocytes 1.5 10^3/uL (0.1-0.6); Absolute Neutrophils 11.9 10^3/uL (1.4-6.5); Hematocrit 35.3 % (39.0-52.0); Hemoglobin 11.6 g/dL (13.0-18.0); Mean Corp Hgb Conc. 32.9 g/dL (33.0-37.0); Mean Corpuscular Hgb 28.1 pg (27.0-31.0); Mean Corpuscular Volume 85.5 fL (80.0-94.0); Nucleated Red Blood Cells % 0 % (-); Red Blood Cell Count 4.13 10^6/uL (4.70-6.10); Red Cell Dist. Width 15.4 % (11.5-14.5); White Blood Cell Count 14.4 10^3/uL (4.8-10.8)
[2024-11-21 23:21] LABS: Urine Albumin 3+ (Neg - Trace); Urine Bilirubin Negative (Negative); Urine Character Cloudy (Clear); Urine Color Yellow; Urine Glucose Negative (Negative); Urine Ketone Negative (Negative); Urine Leukocyte 3+ (Negative); Urine Nitrite Positive (Negative); Urine Occult Blood 4+ (Negative); Urine Specific Gravity 1.015 (<1.030); Urine Urobilinogen Negative (Neg - 1+)
[2024-11-21 23:23] LABS: Lactic Acid 1.8 mmol/L (0.7-2.0)
[2024-11-21 23:31] LABS: ALT (SGPT) 30 U/L (0-50); AST (SGOT) 24 U/L (17-59); Albumin 3.5 g/dl (3.5-5.0); Alkaline Phosphatase 94 U/L (38-126); Blood Urea Nitrogen 43 mg/dl (9-20); Calcium 8.8 mg/dl (8.4-10.2); Carbon Dioxide 22 mmol/L (22-30); Chloride 101 mmol/L (98-107); Glucose 165 mg/dl (70-99); Potassium 4.1 mmol/L (3.5-5.1); Sodium 137 mmol/L (135-145); Total Bilirubin 1.1 mg/dl (0.2-1.3); Total Protein 6.5 g/dl (6.3-8.2); eGFR 55.78
[2024-11-22] VITALS (15 sets, daily range): BP systolic 97–133; BP diastolic 58–67; PULSE 114; O2SAT 94
[2024-11-22 00:57] LABS: Urine Bacteria Many (Negative); Urine Triple Phosphate Crystal Seen
[2024-11-22 01:01] LABS: Mean Platelet Volume 9.3 fL (7.4-10.4); Platelet Count 98 10^3/uL (130-400)
[2024-11-22] MEDS: OMNIPAQUE 50 ML PO (01:33)
--- NOTE | 2024-11-22 01:33 | ED.GENMED ---
History of Present Illness
General
Chief Complaint: Fever
Source: patient
Exam Limitations: none
Time Seen by Provider: 11/22/24 00:42
Nursing documentation reviewed up to this point in time: agreed with
History of Present Illness
History of Present Illness:
64-year-old male past medical history of A-fib currently not anticoagulated not currently in atrial fibrillation, previous cancer removal with partial colectomy previous colostomy status post reversal previous TURP, current nephrostomy presenting to
the emergency department with concerns of groin pain over the past 3 weeks now fevers of the past 24 hours. Pain in the general groin area. Groin discomfort seem to happen after walking about 1 mile 3 weeks ago. Has been trying to rest since
without any improvement. Denies specific additional urinary symptoms. Other than foul-smelling urine
Past History
Past History
ED Past Medical History: Asthma, Cancer (Colorectal CA, Prostate CA), HTN, Hypercholesterolemia and Other (Urinary retention, Self caths)
ED Past Surgical History: Appendectomy, Bowel resection (1993, Dr. Covarrubias at [facility]) and Other (Colostomy)
Social History
Tobacco: Non-smoker
Alcohol: Occasional
Drug: None
Personal:
Living: with family
Review of Systems
Review of Systems
Allergies reviewed?: Yes
All Other Systems: ROS reviewed and negative except as documented in HPI and ROS
Phy Exam
Physical Exam
Physical Exam:
GENERAL: Alert , in no apparent distress
EYE: pupils equal and reactive
NECK: Supple, no significant adenopathy.
ENT: o/p clr, mmm.
CARDIAC: Regular rate and rhythm .
LUNGS: Clear breath sounds bilaterally, no acute respiratory distress, no wheezes/rales/rhonchi
ABDOMEN: Nephrostomy bag in place foul-smelling,, without focal tenderness, no r/g, no cvat
NEUROLOGICAL: Alert and oriented, no focal neuro deficits
SKIN: Warm and dry, skin intact.
MUSCULOSKELETAL: No edema, well perfused.
PSYCH: Normal and appropriate interaction.
Course
Orders/Labs/Results
Orders:
Orders
11/21/24 22:51
Electrocardiogram (*1) Urgent
Reason for Study: Other
Other Reason for Exam: Possible Sepsis
11/21/24 22:52
EKG- Treatment ONCE
11/21/24 23:01
Complete Blood Count/With Diff Urgent
Comprehensive Metabolic Panel Urgent
Lactic Acid Stat
Urinalysis Reflex To Culture Stat
Date Specimen was Collected: 11/21/24
Time Specimen was Collected: 22:52
Urine Microscopic Reflex Cult Stat
Urine Culture Stat
SHAYY Source: U
Specimen Description:
Date Specimen was Collected: 11/21/24
Time Specimen was Collected: 22:52
11/22/24 01:25
0.9% Sodium Chloride 500 ml [Nss] 500 ml IV BOLUS
11/22/24 01:26
CT Abd/pel W Iv And Oral Contr Urgent
Comment:
Reason For Exam: groin pain, hx of nephrostomy, colon resection
Iohexol [Omnipaque] See Protocol PO NOW STA
11/22/24 04:57
Urinalysis Reflex To Culture Urgent
Date Specimen was Collected: 11/22/24
Time Specimen was Collected: 04:56
Urine Microscopic Reflex Cult Urgent
Urine Culture Urgent
SHAYY Source: U
Specimen Description:
Date Specimen was Collected: 11/22/24
Time Specimen was Collected: 04:56
Abnormal Lab Results
11/21/24 11/22/24
23:01 04:57
WBC 14.4 H 10^3/uL
(4.8-10.8)
RBC 4.13 L 10^6/uL
(4.70-6.10)
Hgb 11.6 L g/dL
(13.0-18.0)
Hct 35.3 L %
(39.0-52.0)
MCHC 32.9 L g/dL
(33.0-37.0)
RDW 15.4 H %
(11.5-14.5)
Plt Count 98 L 10^3/uL
(130-400)
Abs Immat Gran (auto) 0.1 H 10^3/uL
(0-0.05)
Absolute Neuts (auto) 11.9 H 10^3/uL
(1.4-6.5)
Absolute Lymphs (auto) 0.9 L 10^3/uL
(1.2-3.4)
Absolute Monos (auto) 1.5 H 10^3/uL
(0.1-0.6)
Immature Gran % 0.6 H %
(0-0.5)
Neutrophils % 82.5 H %
(42.2-75.2)
Lymphocytes % 6.1 L %
(20.5-51.1)
Monocytes % 10.4 H %
(1.7-9.3)
BUN 43 H mg/dl
(9-20)
Creatinine 1.4 H mg/dL
(0.7-1.3)
Glucose 165 H mg/dl
(70-99)
Ur Occult Blood Reflex 4+ A 4+ A
(Negative) (Negative)
Urine Nitrite (Reflex) Positive A
(Negative)
Leukocyte Esterase Rfl 3+ A 3+ A
(Negative) (Negative)
Urine RBC 7-10 A /HPF
(0-2)
Urine Bacteria (Reflex) Many A
(Negative)
Urine Albumin (Reflex) 3+ A 3+ A
(Neg - Trace) (Neg - Trace)
11/21/24 23:01
11/21/24 23:01
Vital Signs
Initial and Last Documented VS:
Initial Vital Signs
Temp Pulse Resp BP Pulse Ox
100.1 F 128 22 127/71 94
11/21/24 22:54 11/21/24 22:54 11/21/24 22:54 11/21/24 22:54 11/21/24 22:54
Last Documented Vital Signs
Temp Pulse Resp BP Pulse Ox
98.0 F 76 12 99/59 95
11/22/24 04:05 11/22/24 05:15 11/22/24 05:15 11/22/24 05:00 11/22/24 05:15
MDM/Problems Addressed
MDM/Problems Addressed:
64-year-old male presenting to the emergency department today with concerns of groin pain over the past 3 weeks no fever over the past 24 hours or so. On arrival here tachycardic but improving without specific treatment here. Blood pressure normal
range temperature of 100.1. White count of 14.4 with left shift. Creat slightly elevated 1.4 GFR 55 urinalysis positive for nitrite as well as leukocyte esterase.. This could be contaminant considering this was out of his nephrostomy bag that has
not been changed recently. Otherwise slight white count. CT scan obtained showing small bowel obstruction. Plan to admit for general surgery consultation.
*Critical Care Note
Total Time (30-74mins, 75-104mins- exclusive of procedures): Not Applicable
ED Attending Note
-
Portions of this chart may have been created with voice recognition software.� Occasional wrong word or��sound alike� substitutions may have occurred due to the inherent limitations of voice recognition software.
Discharge Plan
Departure
Patient Disposition: Admit
Date of Disposition: 11/22/24
Time of Disposition: 05:47
Admit to: Med/Surg
Admit to doctor: Mikhail
Presentation/result/management discussed w/ accepting MD/DO: Hospitalist
Patient with high blood pressure during this ER visit?: No
Condition: Good
Covid-19: Not Applicable
Discharge Problem:
SBO (small bowel obstruction)
Prescriptions:
No Action
albuterol sulfate [Ventolin HFA] 90 MCG/PUFF HFA aerosol inhaler
1 puff inhalation Q6HPRN PRN (Reason: SOB)
oxycodone-acetaminophen 10-325 mg Tablet
1 tab PO Q8HPRN PRN (Reason: severe pain)
Patient Comments:
05/22/24: last filled 05/12/24 for 90 tablets over 30 days
therapeutic multivitamin Tablet
1 tab PO DAILYPRN PRN (Reason: supplement)
cholecalciferol (vitamin D3) [Vitamin D3] 50 mcg (2,000 unit) Tablet
50 mcg PO DAILY
oxycodone [OxyContin] 40 mg Tablet,Oral Only,Ext.Rel.12 Hr
40 mg PO BID
Patient Comments:
05/22/24: last filled 05/13/24 for 60 tablets over 30 days
ondansetron 8 mg Tablet,Disintegrating
16 mg PO [id number] PRN (Reason: nausea)
magnesium hydroxide [Dulcolax (magnesium hydroxide)] 400 mg/5 mL Suspension
2,400 mg PO DAILY
Patient Comments:
liquid dulcolax take 1 capful 60ml
amitriptyline 10 mg Tablet
10 mg PO HSPRN PRN (Reason: sleep)
metoprolol tartrate 25 mg Tablet
25 mg PO DAILYPRN PRN (Reason: heartrate)
lactulose 10 gram/15 mL Solution
15 ml PO DAILYPRN PRN (Reason: constipation)
polyethylene glycol 3350 [HealthyLax] 17 gram Powder In Packet
17 g PO BID Qty: 0 0RF
amoxicillin-pot clavulanate 875-125 mg tablet
1 tab PO BID Qty: 24 0RF
Referrals:
Jackie Toro DO [Family Provider] -
Interventions
Interventions:
*Risk Screen - Suicide Last Done: 11/21/24 22:49
*General Assessment Last Done: 11/22/24 00:52
*Neglect/Abuse Screening Last Done: 11/21/24 22:49
*ED COVID-19 Vaccine History Last Done: 11/22/24 00:52
ED- Neurological Assessment Last Done: 11/22/24 00:58
ED-Skin Assessment Last Done: 11/22/24 00:58
Discharge Date and Time
Print Language: LITHUANIAN
[2024-11-22] MEDS: NSS 500 IV (01:36)
--- NOTE | 2024-11-22 03:26 | DOWNTIME ---
There was a [employer] Downtime on 11/22/2024 from 0200 to 11/23/2023 at 0318 . Downtime documentation of patient's care, including medication administrations, has been reconciled in the electronic record per guidelines. Refer to the
patient's paper chart under the miscellaneous tab to see printed paper medication records and downtime forms.
[2024-11-22 05:21] LABS: Urine Albumin 3+ (Neg - Trace); Urine Bilirubin Negative (Negative); Urine Character Cloudy (Clear); Urine Color Yellow; Urine Glucose Negative (Negative); Urine Ketone Negative (Negative); Urine Leukocyte 3+ (Negative); Urine Nitrite Negative (Negative); Urine Occult Blood 4+ (Negative); Urine Urobilinogen Negative (Neg - 1+)
[2024-11-22 06:11] LABS: Urine Bacteria Many (Negative); Urine White Cell >100 /HPF (0-5)
--- NOTE | 2024-11-22 06:47 | HPS.HSE ---
Family Physician
-
Family Physician: Jackie Toro
Chief Complaint
-
Fevers, Groin Pain
History of Present Illness
Patient is a 64y M with PMH significant for prostate cancer and rectal cancer s/p multiple courses of pelvic XRT, presacral soft tissue swelling, chronic L ureteral obstruction and bilateral PCN in place who presents to ED complaining of
intermittent fevers and chills and bilateral groin pain. Patient states that he has had shaking chills, sweats and fever at home each of the past 2 nights. Fever at home to 103 - 104 degrees. He took Tylenol each night and his fever improved.
Patient denies any cough / SOB, abdominal pain, N/V, etc. No known sick contacts. He has chronic bilateral PCN in place (R is currently capped - L is chronic / permanent). believes that urine from L PCN has been more malodorous.
Fever was 104 at home tonight and he took Tylenol. Temperature here in the ED after Tylenol was 100.1.
Patient also complains of bilateral groin pain. Patient states that this pain has been gradually progressive over the past 3 weeks or so.
He admits to some discomfort after walking on the treadmill at the gym 2-3 weeks ago.
He took a trip to [place] which involved a significant amount of walking. His pain became severe at that time and he was confined to bed / wheelchair for much of his trip.
He has continued to have significant discomfort and difficulty ambulating since that time.
No specific fall, injury, trauma, etc.
No radiation of pain into the legs or back.
Patient notes that he just completed a course of steroids from his PCP for suspected inflammatory process in the groin / hips.
No significant improvement despite steroids.
Medical History
Past Medical History
Past Medical History: Reports Other
Additional Past Medical History:
Colorectal Cancer s/p Colectomy, Colostomy and XRT
Prostate Cancer s/p TURP and XRT
Chronic Left Ureteral Stenosis
Chronic Pelvic / Retroperitoneal Fibrosis
Chronic Constipation
Atrial Fibrillation s/p Ablation
Chronic Pain Syndrome / Chronic Opioid Dependence
Mild Intermittent Asthma
Depression / Insomnia
Past Surgical History: Reports Other
Additional Past Surgical History:
Colectomy / Colostomy
TURP
Left PCN
Right PCN
Appendectomy
PVI Ablation
Social History
Tobacco: Non-smoker
Alcohol: None
Drug: None
Family History
Family History: Not pertinent
Allergies / Home Medications
Allergies reflects when Allergies were last updated in [employer].
Home Medications with original date entered in [employer]
Allergy/Medication List:
Allergies
Allergy/AdvReac Type Severity Reaction Status Date / Time
Beef Containing Products Allergy wheezing Verified 11/21/24 22:50
grass pollen Allergy sneezing Verified 11/21/24 22:50
ibuprofen [Ibuprofen] Allergy BLEEDING Verified 11/21/24 22:50
mold Allergy sneezing Verified 11/21/24 22:50
wheat Allergy Shortness Verified 11/21/24 22:50
of Breath
Home Medications
albuterol sulfate 90 mcg/actuation aerosol inhaler (Ventolin HFA) 1 puff inhalation Q6HPRN PRN SOB 08/06/21
oxycodone-acetaminophen 10 mg-325 mg tablet 1 tab PO Q8HPRN PRN severe pain 12/07/22
amitriptyline 10 mg tablet 10 mg PO HSPRN PRN sleep 05/22/24
cholecalciferol (vitamin D3) 50 mcg (2,000 unit) tablet (Vitamin D3) 50 mcg PO DAILY 05/22/24
magnesium hydroxide 400 mg/5 mL oral suspension (Dulcolax (magnesium hydroxide)) 2,400 mg PO DAILY 05/22/24
metoprolol tartrate 25 mg tablet 25 mg PO DAILYPRN PRN heartrate 05/22/24
ondansetron 8 mg disintegrating tablet 16 mg PO [id number] PRN nausea 10/22/24
oxycodone 40 mg tablet,crush resistant,extended release 12 hr (OxyContin) 40 mg PO BID 05/22/24
therapeutic multivitamin 1 tab PO DAILYPRN PRN supplement 05/22/24
polyethylene glycol 3350 17 gram oral powder packet (HealthyLax) 17 g PO BID #0 ea 05/28/24
Review of Systems
-
History Source: Patient
A 12 point ROS was completed and negative except as noted: Yes
Constitutional: Reports Fever, Fatigue and Chills
EENT: Denies Sore Throat
Respiratory: Denies Cough or Trouble Breathing
Cardiac: Denies Chest Pain or Palpitations
Abdomen/GI: Denies Abdominal Pain, Nausea, Vomiting, Diarrhea, Constipated, Bloody Stools or Black Stools
: Reports Other (Bilateral PCN - R tube is currently capped. L with urine output.); Denies Flank Pain or Bleeding
Musculoskeletal: Reports Joint Pain (bilateral hip / groin pain.)
Neurological: Denies Dizzy or Headache
Psych: Denies Depression or Anxiety
Physical Exam
Vital Signs
Vital Signs
Temp Pulse Resp BP Pulse Ox
98.0 F 78 14 98/64 95
11/22/24 04:05 11/22/24 06:30 11/22/24 06:15 11/22/24 06:00 11/22/24 06:30
Physical Exam
General: Other (64y M in no acute distress.)
HEENT: Moist mucous membranes and PERRLA
Respiratory: Clear; No Wheezes, Rales or Rhonchi
Cardiac: S1/S2 and Regular Rhythm; No Murmur
GI: Soft, Non Tender, Non Distended, Normal Bowel Sounds and Other (LLQ ostomy in place with soft stool in device. Pos BS. No focal tenderness / rebound / guarding.)
Genito-urinary: Other (Bilateral PCN in place. R tube is capped. L draining to bag with dark-colored urine in device. No bleeding, erythema, etc at either site.)
Musculoskeletal: No Clubbing, No Cyanosis, No Edema and Other (Tenderness in bilateral groin areas. Pain with ROM of the hips bilaterally.)
Neuro: AO x 3
Laboratory Results
-
11/21/24 23:
11/21/24 23:
Laboratory Results
Lactic Acid 1.8 mmol/L (0.7-2.0) 11/21/24:
Total Bilirubin 1.1 mg/dl (0.2-1.3) 11/21/24:
AST 24 U/L (17-59) 11/21/24:
ALT 30 U/L (0-50) 11/21/24:
Alkaline Phosphatase 94 U/L (38-126) 11/21/24:
Impression/Plan
-
A/P: Patient is a 64y M with PMH significant for chronic retroperitoneal / pelvic fibrosis s/p multiple courses of XRT who presents o ED complaining of intermittent fevers / chills and bilateral groin pains.
UTI
Sepsis secondary to the above
Chronic Left Ureteral Obstruction
Left Percutaneous Nephrostomy
- Admit for further evaluation and treatment.
- Patient presents with fever (103 at home), tachycardia, tachypnea, leukocytosis and UA consistent with infection.
- Cover with broad spectrum abx for now and adjust based on culture data.
- IR consult for catheter evaluation +/- exchange.
- Supportive care including IVFs, antipyretics, etc.
- Follow for any new / focal complaints.
Bilateral Groin Pain
- Patient with pain in bilateral groin c/w hip joint pain.
- Worse with standing / weight bearing / ROM of the hips.
- No evidence of AVN, etc on CT scan done in the ED.
- Unclear etiology of discomfort that seems fairly severe with activity.
- PT evaluation.
- Pain control.
- ? related to presacral fibrosis / scarring.
- ? possible septic arthritis given pain / fevers / etc.
- Follow for changes in symptoms.
ABRAM
- SCr = 1.4 compared to baseline of 1.0.
- Likely secondary to sepsis.
- IVF support as noted above and follow for improvement.
Colon Cancer s/p Colectomy and Colostomy
Chronic Constipation
- CT scan with slow transit / fecalization. No clinical symptoms c/w SBO.
- No abdominal pain, N/V, etc. Typical stool output from ostomy.
- Continue aggressive bowel regimen including BID Miralax, etc.
- Follow for ostomy function / monitor for any new issues or complaints.
Chronic Anemia
- Hgb much improved from prior baseline.
- Follow for changes.
Chronic Pain Syndrome
Chronic Opioid Dependence
- Continue current pain med regimen and adjust as needed.
- PT eval / increase mobility as tolerated.
DVT Prophylaxis: Subcut Heparin
Code Status: Full
--- NOTE | 2024-11-22 08:07 | W.PN.HOSP.TC ---
Today's Communication/Plan
-
see A/P
Assessment / Plan
Assessment / Plan
64y M with PMH significant for prostate cancer and rectal cancer s/p multiple courses of pelvic XRT, presacral soft tissue swelling, chronic L ureteral obstruction and bilateral PCN in place who presented to ED complaining of intermittent fevers
and chills and bilateral groin pain. Patient states that he has had shaking chills, sweats and fever at home each of the past 2 nights. Fever at home to 103 - 104 degrees. He took Tylenol each night and his fever improved.
Patient denies any cough / SOB, abdominal pain, N/V, etc. No known sick contacts. He has chronic bilateral PCN in place (R is currently capped - L is chronic / permanent). believes that urine from L PCN has been more malodorous.
Fever was 104 at home on DOA and he took Tylenol.
Patient also complains of bilateral groin pain. Patient states that this pain has been gradually progressive over the past 3 weeks or so.
He admits to some discomfort after walking on the treadmill at the gym 2-3 weeks ago.
He took a trip to [place] which involved a significant amount of walking. His pain became severe at that time and he was confined to bed / wheelchair for much of his trip.
He has continued to have significant discomfort and difficulty ambulating since that time.
No specific fall, injury, trauma, etc.
No radiation of pain into the legs or back.
Patient notes that he just completed a course of steroids from his PCP for suspected inflammatory process in the groin / hips.
No significant improvement despite steroids.
A/P:
# Possible UTI
# Sepsis secondary to the above
# Chronic Left Ureteral Obstruction
# Left Percutaneous Nephrostomy
Patient presents with fever (103 at home), tachycardia, tachypnea, leukocytosis and UA consistent with infection. endorses urine has become foul smelling
Cover with broad spectrum abx Vanc/Zosyn for now
Follow urine cultures (2 sets sent, one from L nephrostomy tube, the other from clean catch during urination).
Check blood cultures
IR consult for catheter evaluation +/- exchange.
Supportive care including IVFs, antipyretics, etc.
Follow for any new / focal complaints.
# Bilateral Groin Pain
Patient with pain in bilateral groin c/w hip joint pain.
Worse with standing / weight bearing / ROM of the hips.
No evidence of AVN, etc on CT scan done in the ED. Follow formal CT report.
Unclear etiology of discomfort that seems fairly severe with activity.
? related to presacral fibrosis / scarring.
? possible septic arthritis given pain / fevers / etc.
PT evaluation.
Pain control.
Follow for changes in symptoms.
# ABRAM
SCr = 1.4 compared to baseline of 1.0.
Likely secondary to sepsis.
IVF support as noted above and follow for improvement.
# Colon Cancer s/p Colectomy and Colostomy
# Chronic Constipation
CT scan with slow transit / fecalization. No clinical symptoms c/w SBO.
No abdominal pain, N/V, etc. Typical stool output from ostomy.
Continue aggressive bowel regimen including BID Miralax, etc.
Follow for ostomy function / monitor for any new issues or complaints.
# Chronic Anemia
Hgb much improved from prior baseline.
Follow for changes.
# Chronic Pain Syndrome
# Chronic Opioid Dependence
Continue current pain med regimen and adjust as needed.
PT eval / increase mobility as tolerated.
DVT Prophylaxis: Subcut Heparin
Code Status: Full
DW at bedside
Anticipated Discharge: 24 - 48 hours
Subjective/Interval History
-
Date of Service: November 22, 2024
Objective Data
-
Labs:
Laboratory Results
11/21/24
23:01
WBC 14.4 H
Hgb 11.6 L
Hct 35.3 L
Plt Count 98 L
Sodium 137
Potassium 4.1
Chloride 101
Carbon Dioxide 22
BUN 43 H
Creatinine 1.4 H
Glucose 165 H
Calcium 8.8
Total Bilirubin 1.1
AST 24
ALT 30
Alkaline Phosphatase 94
Vital Signs:
Vital Signs
Temp Pulse Resp BP Pulse Ox
36.7 C 78 14 98/64 95
11/22/24 04:05 11/22/24 06:30 11/22/24 06:15 11/22/24 06:00 11/22/24 06:30
Review of Systems
-
History Source: Patient
Musculoskeletal: Reports Joint Pain (BL groin pain)
Physical Exam
-
General: Well Developed, Well Nourished, No Apparent Distress, Comfortable and Conversant; Negative Respiratory Distress
HEENT: Normocephalic, Atraumatic, Nose Appears Normal and Ears Appear Normal; Negative Oxygen
Respiratory: Clear to Auscultation and Non Labored Respirations; Negative Accessory Resp Muscle Use
Cardiac: Regular Rhythm and S1/S2
GI: Soft, Nontender, Nondistended and Normal Bowel Sounds
Genito-urinary: Nephrostomy Tubes (BL, R capped, L functioning )
Skin: Warm and Dry
Neuro: Awake, Alert, Oriented and AO x 3
Psych: Calm and Intact Judgement/Insight
Data Reviewed
-
Labs: Labs Reviewed by me
--- NOTE | 2024-11-22 09:02 | PHA.VAN.IN ---
Assessment
- Assessment
Renal Function: Appears elevated from baseline (1.4 (base~1.0))
Concomitant Antimicrobials: Piperacillin/Tazobactam
Plan
- Plan
Initial / Loading Dose: Vanco 2000mg loading dose pending administeration 11/22/24 ~0910
Maintenance Regimen: Dose by level
Monitoring: R level 11/23/24 0600
Pharmacokinetics Vancomycin I
- -
Patient Age: 64
Patient Sex: Male
Vancomycin Day #: 1
Indication: Genito-Urinary Tract
Requesting Provider: MAN
Height / Weight:
Height 6 ft
Actual Weight 91.2 kg
Pertinent Past Medical History: Cancer
- Vital Signs / Lab Results
Temp Pulse Resp BP Pulse Ox
98.8 F 91 18 133/61 98
11/22/24 08:38 11/22/24 08:38 11/22/24 08:38 11/22/24 08:38 11/22/24 08:38
Lab Results - Hematology
11/21/24
23:01
WBC 14.4 H
Lab Results - Chemistry
11/21/24
23:01
BUN 43 H
Creatinine 1.4 H
Albumin 3.5
11/21/24
23:01
Lactic Acid 1.8
Lab Results - Urine
11/21/24 11/22/24
23:01 04:57
Urine Nitrite (Reflex) Positive A Negative
Leukocyte Esterase Rfl 3+ A 3+ A
Urine WBC (Reflex) 6-10 >100 A
Ur Squamous Epith Cells 6-10 11-15
Urine Bacteria (Reflex) Many A Many A
[2024-11-22] MEDS: HEPARIN 5000 UNITS SC ×2 (09:30→19:46)
[2024-11-22] MEDS: PROTONIX IV 40 MG IV (09:30)
[2024-11-22] MEDS: COLACE PO (09:30)
[2024-11-22] MEDS: MIRALAX PO (09:30)
[2024-11-22 09:31] LABS: Erythrocyte Sed Rate 53 mm/hour (0-20)
[2024-11-22] MEDS: VANCOCIN 540 MG IV (09:32)
[2024-11-22] MEDS: NSS 1000 IV ×2 (09:32→23:03)
[2024-11-22] MEDS: OXYCONTIN (CONTROLLED RELEASE) 40 MG PO ×2 (09:32→19:46)
[2024-11-22] MEDS: ZOFRAN 4 MG IV (09:34)
[2024-11-22 09:43] LABS: COVID-19 Antigen Negative (Negative)
[2024-11-22] MEDS: ZOSYN 50 IV ×3 (10:31→21:27)
[2024-11-22] MEDS: COMPAZINE 5 MG IV (10:39)
[2024-11-22] MEDS: TYLENOL 650 MG PO ×2 (11:22→17:41)
--- NOTE | 2024-11-22 12:06 | CM ---
Patient seen at bedside with Madina
IA completed
Lives with in a 2 story home, 2 steps to enter, flight stairs to bedroom, powder room 1st floor
PLOF: Independent
Denies DME
Has had [facility] in past, denies SNF
Await PT eval
PCP: [facility]
PLAN: Await PT eval, CM to continue to follow for needs
--- NOTE | 2024-11-22 15:33 | W.PN.UPDATE ---
Update Note
Progress Note Update
- Both PCNs exchanged.
- Urine from R PCN had a foul smell and R antegrade nephrostogram did not show quick transit of contrast into the bladder. Elected to exchange catheter and leave to gravity for now rather then remove.
[2024-11-22] MEDS: NSS IV (16:09)
[2024-11-22] MEDS: MIRALAX 17 GRAMS PO (19:55)
[2024-11-22] MEDS: COLACE 100 MG PO (19:55)
[2024-11-22] MEDS: DELTASONE 20 MG PO (21:27)
[2024-11-22] MEDS: ELAVIL 10 MG PO (21:27)
--- NOTE | 2024-11-22 23:00 | PTCARENOTE ---
Patient c/o 'heart fluttering' upon rounding and requested PRN medication that he usually takes at home. Vital signs as followed, Temp 99.0 HR 171 BP 121/65 POX 94% on RA. EKG done and showed SVT rates in 170-180's. Patient spontaneously converted
to NSR rates 90's. ENV[facility]MENTAL SERVICES FLOOR TECH made aware, orders placed for telemetry monitoring and labs. Patient denies CP and SOB at this time. Call niño within reach, VSS, care ongoing.
[2024-11-22 23:16] LABS: Hematocrit 29.3 % (39.0-52.0); Hemoglobin 9.7 g/dL (13.0-18.0); Mean Corp Hgb Conc. 33.1 g/dL (33.0-37.0); Mean Corpuscular Hgb 28.3 pg (27.0-31.0); Mean Corpuscular Volume 85.4 fL (80.0-94.0); Red Blood Cell Count 3.43 10^6/uL (4.70-6.10); Red Cell Dist. Width 15.7 % (11.5-14.5); White Blood Cell Count 11.3 10^3/uL (4.8-10.8)
[2024-11-22 23:25] LABS: Blood Urea Nitrogen 34 mg/dl (9-20); Carbon Dioxide 24 mmol/L (22-30); Chloride 102 mmol/L (98-107); Estimated Creatinine Clearance 58 ml/min; Glucose 148 mg/dl (70-99); Lactic Acid 0.7 mmol/L (0.7-2.0); Potassium 4.4 mmol/L (3.5-5.1); Sodium 132 mmol/L (135-145); eGFR 55.78
[2024-11-22 23:32] LABS: Platelet Count 71 10^3/uL (130-400)
[2024-11-22 23:37] LABS: Mean Platelet Volume 9.7 fL (7.4-10.4)
[2024-11-22 23:44] LABS: Troponin I 0.076 ng/ml
[2024-11-23] VITALS (7 sets, daily range): BP systolic 109–137; BP diastolic 56–75; PULSE 95; O2SAT 96; BMI 27.3; BMI 28.3
[2024-11-23 00:34] LABS: Magnesium 1.9 mg/dl (1.6-2.3)
--- NOTE | 2024-11-23 02:53 | W.PN.UPDATE ---
Update Note
Progress Note Update
patient c/o heart palpitations to RN. VS 122/65 HR 170's 99.0, 20 94%. Stated he has hx of Afib with ablation, on metoprolol 25mg prn at home for palpitations. three different EKG shows Afib RVR, SVT and NSR. placed on Tele, labs ordered, and
noted. Trop in AM.
After few minutes discomfort subsided, currently stable VS, NSR 75. Patient resting in bed comfortably
[2024-11-23] MEDS: ZOSYN 50 IV ×4 (03:56→21:58)
[2024-11-23] MEDS: HEPARIN 5000 UNITS SC ×2 (08:05→21:57)
[2024-11-23] MEDS: OXYCONTIN (CONTROLLED RELEASE) 40 MG PO ×2 (08:05→21:57)
[2024-11-23] MEDS: PROTONIX IV 40 MG IV (08:06)
[2024-11-23] MEDS: COLACE PO ×2 (08:06→21:56)
[2024-11-23] MEDS: MIRALAX PO (08:06)
[2024-11-23] MEDS: NSS 1000 IV ×2 (08:07→19:08)
--- NOTE | 2024-11-23 08:09 | W.PN.HOSP.TC ---
Addendum entered and electronically signed by Suman Schuster MD 11/23/24 08:32:
Hx of a.fib, s/p ablation, not on OAC. Will request input of cardio
Original Note:
Today's Communication/Plan
-
Cardio consult for a.fib
ID consult
advance diet
Assessment / Plan
Assessment / Plan
64y M with PMH significant for prostate cancer and rectal cancer s/p multiple courses of pelvic XRT, presacral soft tissue swelling, chronic L ureteral obstruction and bilateral PCN in place who presented to ED complaining of intermittent fevers
and chills and bilateral groin pain. Patient states that he has had shaking chills, sweats and fever at home each of the past 2 nights [facility]. Fever at home to 103 - 104 degrees. He took Tylenol each night and his fever improved.
Patient denies any cough / SOB, abdominal pain, N/V, etc. No known sick contacts. He has chronic bilateral PCN in place (R is currently capped - L is chronic / permanent). believes that urine from L PCN has been more malodorous.
Fever was 104 at home on DOA and he took Tylenol.
WBC 14.4-->11.3-->p
Blood Cx +,identification pending
Ur Cx pending
Patient also complains of bilateral groin pain. Patient states that this pain has been gradually progressive over the past 3 weeks or so.
He admits to some discomfort after walking on the treadmill at the gym 2-3 weeks ago.
He took a trip to [place] which involved a significant amount of walking. His pain became severe at that time and he was confined to bed / wheelchair for much of his trip.
He has continued to have significant discomfort and difficulty ambulating since that time.
No specific fall, injury, trauma, etc.
No radiation of pain into the legs or back.
Patient notes that he just completed a course of steroids from his PCP for suspected inflammatory process in the groin / hips.
No significant improvement despite steroids. Steroids to complete 11/25
A/P:
# Possible UTI/Bacteremia
# Sepsis secondary to the above
# Chronic Left Ureteral Obstruction
# Left Percutaneous Nephrostomy
Patient presents with fever (103 at home), tachycardia, tachypnea, leukocytosis and UA consistent with infection. endorses urine has become foul smelling
Cover with broad spectrum abx Vanc/Zosyn for now
Follow urine cultures (2 sets sent, one from L nephrostomy tube, the other from clean catch during urination).
IR consult for catheter evaluation +/- exchange.
Supportive care including IVFs, antipyretics, etc.
Inf Dis consult
# Bilateral Groin Pain
Patient with pain in bilateral groin c/w hip joint pain.
Worse with standing / weight bearing / ROM of the hips.
No evidence of AVN, etc on CT scan done in the ED. Follow formal CT report.
Unclear etiology of discomfort that seems fairly severe with activity.
? related to presacral fibrosis / scarring.
? possible septic arthritis given pain / fevers / etc.
PT evaluation.
Pain control.
Follow for changes in symptoms.
# ABRAM
SCr = 1.4 compared to baseline of 1.0.
Likely secondary to sepsis.
IVF support as noted above and follow for improvement.
# Colon Cancer s/p Colectomy and Colostomy
# Chronic Constipation
CT scan with slow transit / fecalization. No clinical symptoms c/w SBO.
No abdominal pain, N/V, etc. Typical stool output from ostomy.
Continue aggressive bowel regimen including BID Miralax, etc.
Follow for ostomy function / monitor for any new issues or complaints.
# Chronic Anemia
Hgb much improved from prior baseline.
Follow for changes.
#Pt went into a. fib overnight. Telemetry now showing NSR. Will consult his special diet cook
# Chronic Pain Syndrome
# Chronic Opioid Dependence
Continue current pain med regimen and adjust as needed.
PT eval / increase mobility as tolerated.
DVT Prophylaxis: Subcut Heparin
Code Status: Full
Anticipated Discharge: > 48 hours
Subjective/Interval History
-
Date of Service: November 23, 2024
Feels much better today
Objective Data
-
Labs:
Laboratory Results
11/22/24 11/23/24
23:05 06:00
WBC 11.3 H Pending
Hgb 9.7 L Pending
Hct 29.3 L Pending
Plt Count 71 L D Pending
Sodium 132 L Pending
Potassium 4.4 Pending
Chloride 102 Pending
Carbon Dioxide 24 Pending
BUN 34 H Pending
Creatinine 1.4 H Pending
Glucose 148 H Pending
Calcium 8.0 L Pending
Total Bilirubin Pending
AST Pending
ALT Pending
Alkaline Phosphatase Pending
Vital Signs:
Vital Signs
Temp Pulse Resp BP Pulse Ox
98.7 F 80 18 109/56 95
11/23/24 07:35 11/23/24 07:35 11/23/24 07:35 11/23/24 07:35 11/23/24 07:35
I&O
11/22/24 11/23/24 11/24/24
06:59 06:59 06:59
Intake Total 1160 / 1160 1600 / 1600
Output Total 2250 / 2250 400 / 400
Balance -1090 / -1090 1200 / 1200
Review of Systems
-
History Source: Patient and Coordinated Provider
Constitutional: Reports Fever (T max 100.3 in past 24 hrs)
EENT: Reports No Symptoms Reported
Respiratory: Reports No Symptoms
Cardiac: Reports No Symptoms; Denies Palpitations (resolved)
Abdomen/GI: Denies Abdominal Pain or Nausea (asking to advance diet)
Physical Exam
-
General: Well Developed, Well Nourished and No Apparent Distress
HEENT: Normocephalic, Atraumatic and Moist Mucous Membranes
Respiratory: Clear to Auscultation; Negative Wheezes, Rales or Rhonchi
Cardiac: Regular Rhythm and S1/S2
GI: Soft, Nontender, Nondistended and Normal Bowel Sounds
Genito-urinary: No Costovertebral Tender
Musculoskeletal: No Clubbing, No Cyanosis and No Edema
Neuro: Awake, Alert and Oriented
--- NOTE | 2024-11-23 08:34 | PHA.VAN.FU ---
Vancomycin Assessment / Plan
- Assessment
Renal Function: Stable (1.3)
WBC's are: WNL (9.0)
In the past 24 hrs, patient has been: Febrile (102.5)
Concomitant Antimicrobials: Piperacillin/Tazobactam
- Assessment - Therapeutic Drug Monitoring
Random Level: 8.2 ~23H after 2000mg loading dose
- Dosing Plan
Dosing by Level: Re-dose today
Dosing Comments: Vanco 1500mg x1
- Monitoring Plan
Random Level: 11/24/24 0600
- Follow Up
Pharmacy will continue to follow.
Vancomycin Follow UP
- -
Patient Age: 64
Patient Sex: Male
Vancomycin Day #: 2
Indication: Genito-Urinary Tract
Requesting Provider: MAN
Height / Weight:
Height 6 ft
Actual Weight 91.2 kg
Pertinent Past Medical History: Cancer
- Vital Signs / Lab Results
Temp Pulse Resp BP Pulse Ox
98.7 F 80 18 109/56 95
11/23/24 07:35 11/23/24 07:35 11/23/24 07:35 11/23/24 07:35 11/23/24 07:35
Lab Results - Hematology
11/21/24 11/22/24
23:01 23:05
WBC 14.4 H 11.3 H
Lab Results - Chemistry
11/21/24 11/22/24
23:01 23:05
BUN 43 H 34 H
Creatinine 1.4 H 1.4 H
Estimated Creat Clear 58
Albumin 3.5
11/21/24 11/22/24
23:01 23:05
Lactic Acid 1.8 0.7
Microbiology Results
11/22/24 10:26 Blood Culture - Preliminary
Blood/Venous Positive culture in progress
Gram Stain - Preliminary
11/22/24 08:51 Blood Culture - Preliminary
Blood/Venous Positive culture in progress
Gram Stain - Final
11/22/24 08:47 Influenza Types A & B (PARVEEN) - Final
Nasal Swab Negative for Influenza A & B, NAAT
Negative results must be combined with clinical observations
and patient history.
Nucleic Acid Amplification test (NAAT)performed on the
[employer] platform.
[2024-11-23 09:30] LABS: Hematocrit 28.1 % (39.0-52.0); Hemoglobin 9.1 g/dL (13.0-18.0); Mean Corp Hgb Conc. 32.4 g/dL (33.0-37.0); Mean Corpuscular Hgb 27.8 pg (27.0-31.0); Mean Corpuscular Volume 85.9 fL (80.0-94.0); Mean Platelet Volume 10.1 fL (7.4-10.4); Platelet Count 67 10^3/uL (130-400); Red Blood Cell Count 3.27 10^6/uL (4.70-6.10); Red Cell Dist. Width 15.5 % (11.5-14.5)
[2024-11-23 09:35] LABS: Vancomycin Random 8.2 ug/ml
[2024-11-23 09:40] LABS: ALT (SGPT) 20 U/L (0-50); AST (SGOT) 14 U/L (17-59); Albumin 2.7 g/dl (3.5-5.0); Alkaline Phosphatase 84 U/L (38-126); Blood Urea Nitrogen 33 mg/dl (9-20); Calcium 8.1 mg/dl (8.4-10.2); Carbon Dioxide 22 mmol/L (22-30); Chloride 103 mmol/L (98-107); Direct Bilirubin 0.4 mg/dl (0.0-0.4); Estimated Creatinine Clearance 62 ml/min; Glucose 162 mg/dl (70-99); Potassium 4.6 mmol/L (3.5-5.1); Sodium 134 mmol/L (135-145); Total Bilirubin 1.2 mg/dl (0.2-1.3); Total Protein 5.6 g/dl (6.3-8.2); Troponin I 0.143 ng/ml; eGFR > 60.00
--- NOTE | 2024-11-23 10:14 | PN.CDI ---
CDI
- -
CDI:
Physician Documentation Request
Admit Date: 11/22/24 07:07
Dear Doctor Mariely,
Please review the following and provide your response in the progress notes.
Clinical Indicators:
PN, 11/23
# Possible UTI/Bacteremia
# Sepsis secondary to the above
# Chronic Left Ureteral Obstruction
# Left Percutaneous Nephrostomy
#...Patient presents with fever (103 at home), tachycardia, tachypnea, leukocytosis
#...and UA consistent with infection.
#... endorses urine has become foul smelling
Please clarify the relationship, if any, between these conditions:
Yes, Sepsis is associated with/due to Percutaneous Nephrostomy Tube.
No, Sepsis is not associated with/due to Percutaneous Nephrostomy Tube but it is due to ___. (Please specify)
Multifactorial, (please specify)
Other (please specify)
Use of terms such as suspected, likely, concern for, or probable (associated with a specific diagnosis that is being evaluated, monitored, or treated as if it exists) are acceptable and can be coded in the inpatient setting, when documented at the
time of discharge.
Thank you,
Li Sanchez RN BSN CCDS
CDI Specialist
Please contact via tiger text
Please use your independent medical judgment in providing your response.
--- NOTE | 2024-11-23 10:23 | PN.CDI ---
CDI
- -
CDI:
Physician Documentation Request
Admit Date: 11/22/24 07:07
Dear Doctor Mariely,
Please review the following and provide your response in the progress notes.
Clinical Indicators:
Laboratory Tests
11/21/24 11/22/24 11/23/24
23:01 23:05 08:43
Sodium 137 132 L 134 L
Based on the above, please clarify the appropriate diagnosis, if significant, that supports the above abnormalities and additional evaluation, monitoring and/or treatment rendered:
Hyponatremia
Abnormal lab value, clinically insignificant
Other(please specify)
Use of terms such as suspected, likely, concern for, or probable (associated with a specific diagnosis that is being evaluated, monitored, or treated as if it exists) are acceptable and can be coded in the inpatient setting, when documented at the
time of discharge.
Thank you,
Li Sanchez RN BSN CCDS
CDI Specialist
Please contact via tiger text
Please use your independent medical judgment in providing your response.
--- NOTE | 2024-11-23 10:24 | CON.ID ---
Consultation
-
Date/Time Consultation Requested: November 23, 2024 0826
Date/Time Consultation Performed: November 23, 2024 1030
Requesting Provider: Dr. Suman Schuster
Performing Provider: Dr. Sveta Chávez
Reason for Consultation: Bacteremia
Chief Complaint / Past History
Chief Complaint
Fevers, chills, bilateral groin pain
History of Present Illness
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
hydronephrosis status post right percutaneous nephrostomy placement July 2024 which was then capped, who presents to the hospital with 2-day history of fevers and chills. He also complains of significant bilateral groin pain left greater than
right radiating down his leg. He had difficulty walking. He he came to the ER late November 21. He spiked a temperature 102.4. White count of 14.4. CAT scan of the abdomen showed both nephrostomy catheters are in position. Urine culture 100,000
colonies of mixed azeem. November 22, he underwent exchange of left nephrostomy tube, right nephrostomy noted to have malodorous urine and therefore catheter replaced kept open. Admission blood cultures with gram-positive cocci in chains in 1 set,
gram-positive cocci in clusters in the second set. Vancomycin added to Zosyn. He reports bilateral groin pain have improved since catheter changed. No diarrhea.
Past History
Additional Past Medical History:
A-fib s/p ablation
HTN
Dyslipidemia
Prostate cancer
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
Right hydronephrosis s/p right perc nephrostomy (07/2024)
Rectal CA (1992) s/p XRT and resection, end colostomy
Hx bowel obstruction
Asthma
Prostate CA s/p TURP and XRT
Appendectomy
Allergy History:
Beef Containing Products Allergy (Verified 11/21/24 22:50)
wheezing
grass pollen Allergy (Verified 11/21/24 22:50)
sneezing
ibuprofen [Ibuprofen] Allergy (Verified 11/21/24 22:50)
BLEEDING
mold Allergy (Verified 11/21/24 22:50)
sneezing
wheat Allergy (Verified 11/21/24 22:50)
Shortness of Breath
Medications Reviewed: Yes
Current Antibiotics:
Zosyn
Vancomycin
Social History
Tobacco: Non-Smoker
Alcohol: Occasional
Drug: None
Personal:
Living: With Family
Family History
Family History: Not Pertinent
Review of Systems
Review of Systems
General: Fever, Chills and Change in Appetite
HEENT: Negative Sinus Problems, Headache or Pharyngitis
Cardiovascular: Negative Chest Pain or Dyspnea
Respiratory: Negative Dyspnea or Cough
Gasteroenterology: Negative Nausea, Vomiting or Diarrhea
Genital / Urological: Negative Flank Pain
Endocrine: Weakness
Neurological: Negative Dizziness
All systems: All other systems were reviewed and were negative
Vital Signs
Temp Pulse Resp BP Pulse Ox
98.7 F 80 18 109/56 95
11/23/24 07:35 11/23/24 07:35 11/23/24 07:35 11/23/24 07:35 11/23/24 07:35
Selected Entries
11/22/24
11:23
Temp 102.5 F H
Physical Exam
Physical Exam
Constitutional: No Acute Distress and Comfortable
Eyes: No Conjunctival Hemorrhage and Sclera Anicteric
Cardiovascular: Regular Rate and S1/S2
Pulmonary: Clear
Gastrointestinal: Soft, Non Tender, Non Distended and Normal Bowel Sounds
Genito-Urinary: Clear Urine (Right nephrostomy) and Turbid Urine (Left nephrostomy)
Lab / Diagnostic Study Results
11/23/24 08:43
11/23/24 08:43
Abs Immat Gran (auto) 0.1 10^3/uL (0-0.05) H 11/21/24 23:01
Absolute Neuts (auto) 11.9 10^3/uL (1.4-6.5) H 11/21/24 23:01
Absolute Lymphs (auto) 0.9 10^3/uL (1.2-3.4) L 11/21/24 23:01
Absolute Monos (auto) 1.5 10^3/uL (0.1-0.6) H 11/21/24 23:01
Absolute Basos (auto) 0.0 10^3/uL (0-0.2) 11/21/24 23:01
Immature Gran % 0.6 % (0-0.5) H 11/21/24 23:01
Neutrophils % 82.5 % (42.2-75.2) H 11/21/24 23:01
Lymphocytes % 6.1 % (20.5-51.1) L 11/21/24 23:01
Monocytes % 10.4 % (1.7-9.3) H 11/21/24 23:01
Eosinophils % 0.3 % (0-6) 11/21/24 23:01
Basophils % 0.1 % (0-2) 11/21/24 23:01
ESR 53 mm/hour (0-20) H 11/22/24 08:51
Lactic Acid 0.7 mmol/L (0.7-2.0) 11/22/24 23:05
C-Reactive Protein 186.90 mg/L (0.0-10.00) H 11/22/24 08:51
Ur Squamous Epith Cells 11-15 /LPF (Few) 11/22/24 04:57
Microbiology Results
Micro:
11/21/24 23:01 Urine Culture - Final
Urine
11/22/24 04:57 Urine Culture - Final
Urine
11/22/24 10:26 Blood Culture - Preliminary
Blood/Venous Positive culture in progress
Gram Stain - Preliminary
11/22/24 08:51 Blood Culture - Preliminary
Blood/Venous Positive culture in progress
Gram Stain - Final
11/22/24 08:47 Influenza Types A & B (PARVEEN) - Final
Nasal Swab Negative for Influenza A & B, NAAT
Negative results must be combined with clinical observations
and patient history.
Nucleic Acid Amplification test (NAAT)performed on the
[employer] NOW platform.
11/22/24 CT a/p: Bilateral nephrostomy catheters seen in position, as detailed above, without renal collecting system dilatation. Some 'fecalized' small bowel suggesting slow transit. Oral contrast only opacifying stomach and nondilated proximal to
mid small bowel. Large volume stool predominantly in the proximal colon. Left lower quadrant ostomy. Postsurgical changes with prominent soft tissues and small fluid collection in the presacral soft tissues, soft tissue fluid collection perhaps
slightly larger in size in comparison to prior CT. Findings discussed with Dr. Elizondo at approximately 0745 hours on May 24, 2024.
Assessment / Plan
# Complicated UTI
.hx obstructive uropathy with bilateral perc nephrostomy tubes ; right catheter was capped
. 11/22 s/p bilateral perc nephrostomy catheter change, right tube uncapped. Noted to have malodorous urine from right kidney.
# GPC chain and clusters bacteremia, urine source
# Fever improving
# Leukocytosis resolved
# Thrombocytopenia - worse. ? due to sepsis
Plan:
- Repeat blood cx's in am.
- Continue Zosyn.
-DC Vancomycin
- Follow plt count, temps.
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
A-fib s/p ablation
HTN
Dyslipidemia
Prostate cancer
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
Right hydronephrosis s/p right perc nephrostomy (07/2024)
Rectal CA (1992) s/p XRT and resection, end colostomy
Hx bowel obstruction
Asthma
Prostate CA s/p TURP and XRT
Appendectomy
--- NOTE | 2024-11-23 10:27 | PN.CDI ---
CDI
- -
CDI:
Physician Documentation Request
Admit Date: 11/22/24 07:07
Dear Doctor Mariely,
Please review the following and provide your response in the progress notes.
Clinical Indicators:
Laboratory Tests
11/22/24 11/23/24
23:05 08:43
Troponin I 0.076 H* 0.143 H*
Based on the above, could you clarify in the progress notes, the appropriate diagnosis, if significant, that supports the above abnormalities and additional evaluation, monitoring and/or treatment rendered:
Non-Ischemic Myocardial Injury
Abnormal lab value, clinically insignificant
Other(please specify)
Use of terms such as suspected, likely, concern for, or probable (associated with a specific diagnosis that is being evaluated, monitored, or treated as if it exists) are acceptable and can be coded in the inpatient setting, when documented at the
time of discharge.
Thank you,
Li Sanchez RN BSN CCDS
CDI Specialist
Please contact via tiger text
Please use your independent medical judgment in providing your response.
[2024-11-23] MEDS: VANCOCIN 530 MG IV (11:56)
--- NOTE | 2024-11-23 13:02 | CON.CAR ---
Addendum entered and electronically signed by Gutierrez Head MD 11/23/24 14:14:
I saw and examined the patient.
The INTERNET SALES ASSOCIATE's note was reviewed and I agree with the note.
Comment: 64 yo male with HTN, HLD, PVCs, Aflutter s/p ablation 2013 w/o recurrence, PSVT, mild dilation of aortic root (4.3cm) and dilation or ascending aorta (3.7cm), and colon cancer age 29 and prostate cancer, who presents to the ER with c/o
fever and groin pain. He is admitted to the hospitalist service and we are consulted for possible Afib.
Upon review of telemetry it appears that this is more likely an A. tach/SVT which she has had in the past. I discussed with hospitalist as well as patient no need for anticoagulation at this time.
Metoprolol XL 25 at night
update echo
Patient should have 30 day monitor after discharge.
We will sign off pls call with questions/concerns.
Original Note:
Consultation
Consultation Request
Date/Time Consultation Requested: 11/23/24 8:30a
Date/Time Consultation Performed: 11/23/24
Requesting Provider: Dr. Schuster
Performing Provider: GUSTAVO Sousa for Dr. Head
Reason for Consultation: possible Afib
Medical History
-
Chief Complaint: fevers
History of Present Illness:
Mr. Harley is a 64 yo male with HTN, HLD, PVCs, Aflutter s/p ablation 2013 w/o recurrence, PSVT, mild dilation of aortic root (4.3cm) and dilation or ascending aorta (3.7cm), and colon cancer age 29 and prostate cancer, who presents to the ER with
c/o fever and groin pain. He is admitted to the hospitalist service and we are consulted for possible Afib. He was noted to have SVT/Sinus tach on tele, no Afib seen. His rates have improved, NSR. At home he monitors for palpitations with Kardia
mobile and if he feels palpitations he takes Lopressor 25mg daily, last taken 1 week ago. Currently he denies any cardiac symptoms.
Past Medical History
Past Medical History: Other (as above)
Social History
Tobacco: Non-Smoker
Alcohol: None
Personal:
Living: With Family
Family History
Family History: Reviewed & Not Pertinent
Allergies / Home Medications
Allergy/AdvReac Type Severity Reaction Status Date / Time
Beef Containing Products Allergy wheezing Verified 11/21/24 22:50
grass pollen Allergy sneezing Verified 11/21/24 22:50
ibuprofen [Ibuprofen] Allergy BLEEDING Verified 11/21/24 22:50
mold Allergy sneezing Verified 11/21/24 22:50
wheat Allergy Shortness Verified 11/21/24 22:50
of Breath
�Medication �Instructions �Recorded �Confirmed �Type
albuterol sulfate 90 mcg/actuation 2 puff inhalation R Q6HPRN PRN SOB 08/06/21 11/22/24 History
aerosol inhaler (Ventolin HFA)
oxycodone-acetaminophen 10 mg-325 1 tab PO TID Pain 12/07/22 11/22/24 History
mg tablet
amitriptyline 10 mg tablet 10 mg PO HS Sleep 05/22/24 11/22/24 History
metoprolol tartrate 25 mg tablet 25 mg PO DAILYPRN PRN heartrate 05/22/24 11/22/24 History
ondansetron 8 mg disintegrating 16 mg PO DAILY Gastrointestinal 05/22/24 11/22/24 History
tablet Issue
oxycodone 40 mg tablet,crush 40 mg PO BID Pain 05/22/24 11/22/24 History
resistant,extended release 12 hr
(OxyContin)
acetaminophen 325 mg tablet 650 mg PO Q6HPRN PRN mild pain 11/22/24 11/22/24 History
(Tylenol)
lactulose 10 gram/15 mL oral 20 g PO Q48H Gastrointestinal Issue 11/22/24 11/22/24 History
solution
magnesium hydroxide 400 mg/5 mL 400 mg PO DAILYPRN PRN constipation 11/22/24 11/22/24 History
oral suspension (Dulcolax
(magnesium hydroxide))
polyethylene glycol 3350 17 gram 17 g PO DAILY Gout 11/22/24 11/22/24 History
oral powder packet (HealthyLax)
prednisone 10 mg tablet 10 mg PO DIRECTED 11/22/24 11/22/24 History
Anti-Inflammatory
Review of Systems
-
History Source: Patient
All other systems: Negative unless noted
Physical Exam
Vital Signs
Temp Pulse Resp BP Pulse Ox
99.2 F 88 17 125/63 95
11/23/24 11:05 11/23/24 11:05 11/23/24 11:05 11/23/24 11:05 11/23/24 11:05
Lab Results
11/23/24 08:43
11/23/24 08:43
Troponin I 0.143 ng/ml H* 11/23/24 08:43
Physical Exam
General: Well Developed, Well Nourished and No Apparent Distress
HEENT: Normocephalic, Anicteric and Moist Mucous Membranes
Respiratory: Clear and Non Labored Respirations
Cardiac: S1/S2 and Regular Rhythm
Breast: Deferred by me
GI: Soft, Non Tender and Normal Bowel Sounds
Rectal: Deferred by Provider
Genito-urinary: No Costovertebral Tender
Musculoskeletal: No Clubbing and No Cyanosis
Skin: Warm and Dry
Neuro: AO x 3
Psych: Calm
Impression / Plan
-
SVT/Sinus tachycardia - rapid rates noted on tele.
- no Afib.
- continue to monitor.
- will add Toprol 25mg QPM.
- check echo.
Aflutter - s/p ablation 2013, stable w/o recurrence.
- monitor on tele.
HTN - stable, not on meds currently.
- followed by Dr. Cordero.
HLD - stable, previously on Tricor.
Aortic dilatation - mild dilation of aortic root (4.3cm) and dilation or ascending aorta (3.7cm).
- check echo.
Fevers - per hospitalist on ABX.
Data Reviewed
-
EKG: Tracing Personally Visualized and interpreted (NSR, SVT)
Medical Tests (Nuc Med, Echo etc): Report Reviewed by me (echo 2022: EF 65-70%, Ao root 4.3cm, Asc Ao 3.7 cm)
Labs: Labs Reviewed by me
Old Records: Reviewed
[2024-11-23] MEDS: PERCOCET 5/325 1 TABLET PO (13:54)
[2024-11-23] MEDS: NSS IV (15:28)
[2024-11-23] MEDS: TYLENOL 650 MG PO (15:29)
--- NOTE | 2024-11-23 16:00 | CM ---
Patient met at bedside
PT rec outpatient therapy
will need script at discharge
PLAN: Home with outpatient therapy
[2024-11-23] MEDS: TOPROL XL 25 MG PO (16:57)
[2024-11-23] MEDS: MIRALAX 17 GRAMS PO (21:57)
[2024-11-23] MEDS: DELTASONE 10 MG PO (21:57)
[2024-11-23] MEDS: ELAVIL 10 MG PO (21:58)
[2024-11-24] MEDS: NSS 1000 IV ×2 (03:17→03:18)
[2024-11-24] MEDS: ZOSYN 50 IV ×2 (03:18→09:41)
[2024-11-24] MEDS: PERCOCET 5/325 1 TABLET PO ×2 (03:18→14:22)
[2024-11-24 03:43] VITALS: BP 107/61
[2024-11-24 07:45] VITALS: BP 111/66
[2024-11-24] MEDS: PROTONIX IV 40 MG IV (08:23)
[2024-11-24] MEDS: OXYCONTIN (CONTROLLED RELEASE) 40 MG PO ×2 (08:23→20:01)
[2024-11-24] MEDS: MIRALAX 17 GRAMS PO ×2 (08:23→20:01)
[2024-11-24] MEDS: HEPARIN 5000 UNITS SC ×2 (08:23→20:01)
[2024-11-24] MEDS: COLACE 100 MG PO (08:24)
[2024-11-24 11:20] VITALS: BP 118/69
--- NOTE | 2024-11-24 11:22 | W.PN.ID1 ---
Date of Service
Date of Service: November 24, 2024
Today's Communication
See below.
Assessment / Plan
# Complicated UTI
.hx obstructive uropathy with bilateral perc nephrostomy tubes ; right catheter was capped
. 11/22 s/p bilateral perc nephrostomy catheter change, right tube uncapped. Noted to have malodorous urine from right kidney.
# Staph aureus bacteremia, likely urine source
# Fever resolved
# Leukocytosis resolved
# Acute Thrombocytopenia
Plan:
- TTE no gross vege
- Follow Repeat blood cx's
- Narrow Zosyn to cefazolin 2g IV q8h
- Anticipate course of IV abx. Will start set up process on Tuesday
- Follow plt count, temps.
-
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
A-fib s/p ablation
HTN
Dyslipidemia
Prostate cancer
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
Right hydronephrosis s/p right perc nephrostomy (07/2024)
Rectal CA (1992) s/p XRT and resection, end colostomy
Hx bowel obstruction
Asthma
Prostate CA s/p TURP and XRT
Appendectomy
Chief Complaint
-: Bacteremia
Subjective / Review of Systems
Bilateral groin pain improving.
Vital Signs / Physical Exam
Vital Signs
Vital Signs
Temp Pulse Resp BP Pulse Ox
98.4 F 74 16 118/69 95
11/24/24 11:20 11/24/24 11:20 11/24/24 11:20 11/24/24 11:20 11/24/24 11:20
Physical Exam
Constitutional: No Acute Distress and Comfortable
Cardiovascular: Regular Rate and S1/S2
Pulmonary: Clear
Gastrointestinal: Soft, Non Tender and Non Distended
Genito-Urinary: Clear Urine (Bilateral PERC nephrostomy); Negative CVA Tenderness
Neurological: AO x 3
Objective Data
Lab Data
Lab Results
11/23/24 08:43
11/23/24 08:43
ESR 53 mm/hour (0-20) H 11/22/24 08:51
Estimated Creat Clear 62 ml/min 11/23/24 08:43
Lactic Acid 0.7 mmol/L (0.7-2.0) 11/22/24 23:05
Total Bilirubin 1.2 mg/dl (0.2-1.3) 11/23/24 08:43
AST 14 U/L (17-59) L 11/23/24 08:43
ALT 20 U/L (0-50) 11/23/24 08:43
Alkaline Phosphatase 84 U/L (38-126) 11/23/24 08:43
C-Reactive Protein 186.90 mg/L (0.0-10.00) H 11/22/24 08:51
Most recent labs reviewed.
Micro Results:
11/22/24 08:51 Blood Culture - Preliminary
Blood/Venous Staphylococcus aureus
Gram Stain - Final
11/22/24 10:26 Blood Culture - Preliminary
Blood/Venous Positive culture in progress
Gram Stain - Preliminary
11/24/24 06:06 Blood Culture - Pending
Blood/Venous
11/24/24 06:56 Blood Culture - Pending
Blood/Venous
11/21/24 23:01 Urine Culture - Final
Urine
11/22/24 04:57 Urine Culture - Final
Urine
11/22/24 08:47 Influenza Types A & B (PARVEEN) - Final
Nasal Swab Negative for Influenza A & B, NAAT
Negative results must be combined with clinical observations
and patient history.
Nucleic Acid Amplification test (NAAT)performed on the
[employer] NOW platform.
11/22/24 CT a/p: Bilateral nephrostomy catheters seen in position, as detailed above, without renal collecting system dilatation. Some 'fecalized' small bowel suggesting slow transit. Oral contrast only opacifying stomach and nondilated proximal to
mid small bowel. Large volume stool predominantly in the proximal colon. Left lower quadrant ostomy. Postsurgical changes with prominent soft tissues and small fluid collection in the presacral soft tissues, soft tissue fluid collection perhaps
slightly larger in size in comparison to prior CT. Findings discussed with Dr. Elizondo at approximately 0745 hours on May 24, 2024.
[2024-11-24] MEDS: ANCEF 10 IV ×2 (14:10→20:01)
[2024-11-24 15:22] VITALS: BP 126/72
--- NOTE | 2024-11-24 15:23 | W.PN.HOSP.TC ---
Today's Communication/Plan
-
IV Ancef
started on Toprol XL 25 mg by cardio
Assessment / Plan
Assessment / Plan
64y M with PMH significant for prostate cancer and rectal cancer s/p multiple courses of pelvic XRT, presacral soft tissue swelling, chronic L ureteral obstruction and bilateral PCN in place who presented to ED complaining of intermittent fevers
and chills and bilateral groin pain. 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 Fever at home to 103 - 104 degrees. He took Tylenol each night and his fever improved.
Patient denies any cough / SOB, abdominal pain, N/V, etc. No known sick contacts. He has chronic bilateral PCN in place (R is currently capped - L is chronic / permanent). believes that urine from L PCN has been more malodorous.
Fever was 104 at home on DOA and he took Tylenol.
WBC 14.4-->11.3-->9.0
Blood Cx +Staph Aureus
Ur Cx mixed azeem
Successful fluoroscopically guided exchange of bilateral percutaneous nephrostomy catheters, performed on 11/22
Patient also complains of bilateral groin pain. Patient states that this pain has been gradually progressive over the past 3 weeks or so.
He admits to some discomfort after walking on the treadmill at the gym 2-3 weeks ago.
He took a trip to [place] which involved a significant amount of walking. His pain became severe at that time and he was confined to bed / wheelchair for much of his trip.
He has continued to have significant discomfort and difficulty ambulating since that time.
No specific fall, injury, trauma, etc.
No radiation of pain into the legs or back.
Patient notes that he just placed on a course of steroids from his PCP for suspected inflammatory process in the groin / hips.
No significant improvement despite steroids. Steroids to complete 11/25
Non-Ischemic Myocardial Injury
A/P:
# Probable UTI/Bacteremia
Blood Cx Pos x 2
# Sepsis secondary to the above
# Chronic Left Ureteral Obstruction
# Left Percutaneous Nephrostomy
Yes, Sepsis is associated with/due to Percutaneous Nephrostomy Tube.
Patient presents with fever (103 at home), tachycardia, tachypnea, leukocytosis and UA consistent with infection. endorses urine has become foul smelling
urine cultures (2 sets sent, one from L nephrostomy tube, the other from clean catch during urination). mixed azeem
Inf Dis consult appreciated
Now on Ancef 2 gms IV q8h
Discussed with Dr. Chávez, length of time on abx as per ID
# Bilateral Groin Pain
Patient with pain in bilateral groin c/w hip joint pain.
Worse with standing / weight bearing / ROM of the hips.
No evidence of AVN, etc on CT scan done in the ED. Follow formal CT report.
Unclear etiology of discomfort that seems fairly severe with activity.
? related to presacral fibrosis / scarring.
? possible septic arthritis given pain / fevers / etc.
PT evaluation.
Pain control.
Follow for changes in symptoms.
# ABRAM
SCr = 1.4-->1.3
Likely secondary to sepsis.
Hyponatremia
# Colon Cancer s/p Colectomy and Colostomy
# Chronic Constipation
CT scan with slow transit / fecalization. No clinical symptoms c/w SBO.
No abdominal pain, N/V, etc. Typical stool output from ostomy.
Continue aggressive bowel regimen including BID Miralax, etc.
Follow for ostomy function / monitor for any new issues or complaints.
# Chronic Anemia
Hgb much improved from prior baseline.
Follow for changes.
#There was the concern that pt went into a. fib overnight 11/23. Cardiology consult appreciated felt to be SVT and felt not to need OAC. Will need a 30 day monitor post dc
# Chronic Pain Syndrome
# Chronic Opioid Dependence
Continue current pain med regimen and adjust as needed.
PT eval / increase mobility as tolerated.
DVT Prophylaxis: Subcut Heparin
Code Status: Full
Anticipated Discharge: > 48 hours
Subjective/Interval History
-
Date of Service: November 24, 2024
Generally feels much better
Objective Data
-
Vital Signs:
Vital Signs
Temp Pulse Resp BP Pulse Ox
98.4 F 74 16 118/69 95
11/24/24 11:20 11/24/24 11:20 11/24/24 11:20 11/24/24 11:20 11/24/24 11:20
I&O
11/23/24 11/24/24 11/25/24
06:59 06:59 06:59
Intake Total 1160 / 1160 3990 / 3990 540 / 540
Output Total 2250 / 2250 2060 / 2060 860 / 860
Balance -1090 / -1090 1930 / 1930 -320 / -320
Review of Systems
-
History Source: Patient, Family ( in room, many concerns) and Coordinated Provider
Constitutional: Reports Fever (T max 102.5 11/22 at 11:23, afebrile since)
EENT: Reports No Symptoms Reported
Respiratory: Reports No Symptoms
Cardiac: Reports No Symptoms; Denies Palpitations (resolved)
Abdomen/GI: Denies Abdominal Pain or Nausea (resolved)
Physical Exam
-
General: Well Developed, Well Nourished and No Apparent Distress
HEENT: Normocephalic, Atraumatic and Moist Mucous Membranes
Respiratory: Clear to Auscultation; Negative Wheezes, Rales or Rhonchi
Cardiac: Regular Rhythm and S1/S2
GI: Soft, Nontender, Nondistended and Normal Bowel Sounds
Genito-urinary: No Costovertebral Tender and Nephrostomy Tubes (bilateral)
Musculoskeletal: No Clubbing, No Cyanosis and No Edema
Neuro: Awake, Alert and Oriented
[2024-11-24] MEDS: DELTASONE 10 MG PO (17:36)
[2024-11-24] MEDS: TOPROL XL 25 MG PO (17:36)
--- NOTE | 2024-11-24 17:38 | PTCARENOTE ---
pt walking on the hallway, HR went up to 170's sustaining for about 30 secs. asymptomatic. HR back to 80's. Cards and hospitalists made aware. no new orders at this time. plan of care ongoing.
[2024-11-24 19:43] VITALS: BP 133/78
[2024-11-24] MEDS: COLACE PO (20:01)
[2024-11-24] MEDS: TYLENOL 650 MG PO (20:02)
[2024-11-24] MEDS: ELAVIL 10 MG PO (20:02)
[2024-11-24 23:39] VITALS: BP 133/64
[2024-11-25] VITALS (10 sets, daily range): BP systolic 95–151; BP diastolic 58–87
[2024-11-25] MEDS: PERCOCET 5/325 1 TABLET PO ×2 (05:55→15:08)
[2024-11-25] MEDS: ANCEF 10 IV ×3 (05:55→21:36)
[2024-11-25] MEDS: ZOFRAN 4 MG IV (06:17)
[2024-11-25 07:05] LABS: Hematocrit 30.7 % (39.0-52.0); Hemoglobin 9.8 g/dL (13.0-18.0); Mean Corp Hgb Conc. 31.9 g/dL (33.0-37.0); Mean Corpuscular Hgb 27.6 pg (27.0-31.0); Mean Corpuscular Volume 86.5 fL (80.0-94.0); Platelet Count 100 10^3/uL (130-400); Red Blood Cell Count 3.55 10^6/uL (4.70-6.10); Red Cell Dist. Width 15.8 % (11.5-14.5); White Blood Cell Count 7.3 10^3/uL (4.8-10.8)
[2024-11-25 07:23] LABS: Blood Urea Nitrogen 34 mg/dl (9-20); Calcium 8.5 mg/dl (8.4-10.2); Carbon Dioxide 23 mmol/L (22-30); Chloride 108 mmol/L (98-107); Estimated Creatinine Clearance 81 ml/min; Glucose 145 mg/dl (70-99); Potassium 4.4 mmol/L (3.5-5.1); Sodium 139 mmol/L (135-145); eGFR > 60.00
[2024-11-25] MEDS: PROTONIX IV 40 MG IV (08:09)
[2024-11-25] MEDS: HEPARIN 5000 UNITS SC (08:09)
[2024-11-25] MEDS: OXYCONTIN (CONTROLLED RELEASE) 40 MG PO ×2 (08:09→20:47)
[2024-11-25] MEDS: MIRALAX PO (08:10)
[2024-11-25] MEDS: NSS (PRESERVATIVE FREE) 10 ML IV (08:10)
[2024-11-25] MEDS: COLACE PO (08:10)
[2024-11-25] MEDS: COMPAZINE 5 MG IV (10:29)
--- NOTE | 2024-11-25 11:34 | W.PN.ID1 ---
Date of Service
Date of Service: November 25, 2024
Today's Communication
Continue cefazolin 2g IV q8h through 12/09/24.
Assessment / Plan
# Complicated UTI
.hx obstructive uropathy with bilateral perc nephrostomy tubes ; (right catheter was previously capped)
. 11/22 s/p bilateral perc nephrostomy catheter change, right tube uncapped. Noted to have malodorous urine from right kidney.
# Uncomplicated Staph aureus bacteremia (MSSA), urine source
# Fever resolved
# Leukocytosis resolved
# Acute Thrombocytopenia improving
Plan:
- TTE no gross vege
- Follow Repeat blood cx's neg to date.
- Continue cefazolin 2g IV q8h through 12/09/24.
Weekly CBC/diff, comp.
- Home infusion sheet submitted to case management to set up process on Tuesday
- Midline tomorrow if bcx remain neg.
- Continue supportive care for nausea.
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
A-fib s/p ablation
HTN
Dyslipidemia
Prostate cancer
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
Right hydronephrosis s/p right perc nephrostomy (07/2024)
Rectal CA (1992) s/p XRT and resection, end colostomy
Hx bowel obstruction
Asthma
Prostate CA s/p TURP and XRT
Appendectomy
Chief Complaint
-: Bacteremia
Subjective / Review of Systems
c/o nausea with cefazolin. Nausea controlled with Compazine.
Vital Signs / Physical Exam
Vital Signs
Vital Signs
Temp Pulse Resp BP Pulse Ox
98 F 78 18 127/68 97
11/25/24 07:35 11/25/24 07:35 11/25/24 07:35 11/25/24 07:35 11/25/24 07:35
Physical Exam
Constitutional: Comfortable
Cardiovascular: Regular Rate and S1/S2
Pulmonary: Clear
Gastrointestinal: Soft, Non Tender and Non Distended
Genito-Urinary: Clear Urine (Bilateral PERC nephrostomy); Negative CVA Tenderness
Neurological: AO x 3
Objective Data
Lab Data
Lab Results
11/25/24 06:48
11/25/24 06:48
ESR 53 mm/hour (0-20) H 11/22/24 08:51
Estimated Creat Clear 81 ml/min 11/25/24 06:48
Lactic Acid 0.7 mmol/L (0.7-2.0) 11/22/24 23:05
Total Bilirubin 1.2 mg/dl (0.2-1.3) 11/23/24 08:43
AST 14 U/L (17-59) L 11/23/24 08:43
ALT 20 U/L (0-50) 11/23/24 08:43
Alkaline Phosphatase 84 U/L (38-126) 11/23/24 08:43
C-Reactive Protein 186.90 mg/L (0.0-10.00) H 11/22/24 08:51
Most recent labs reviewed.
Micro Results:
11/22/24 10:26 Blood Culture - Preliminary
Blood/Venous S aureus-Methicillin Sensitive
Gram Stain - Preliminary
11/22/24 08:51 Blood Culture - Final
Blood/Venous S aureus-Methicillin Sensitive
Gram Stain - Final
11/24/24 06:56 Blood Culture - Preliminary
Blood/Venous No Growth in 24 hours- Final report to follow
11/24/24 06:06 Blood Culture - Preliminary
Blood/Venous No Growth in 24 hours- Final report to follow
11/21/24 23:01 Urine Culture - Final
Urine
11/22/24 04:57 Urine Culture - Final
Urine
11/22/24 08:47 Influenza Types A & B (PARVEEN) - Final
Nasal Swab Negative for Influenza A & B, NAAT
Negative results must be combined with clinical observations
and patient history.
Nucleic Acid Amplification test (NAAT)performed on the
[employer] platform.
11/22/24 CT a/p: Bilateral nephrostomy catheters seen in position, as detailed above, without renal collecting system dilatation. Some 'fecalized' small bowel suggesting slow transit. Oral contrast only opacifying stomach and nondilated proximal to
mid small bowel. Large volume stool predominantly in the proximal colon. Left lower quadrant ostomy. Postsurgical changes with prominent soft tissues and small fluid collection in the presacral soft tissues, soft tissue fluid collection perhaps
slightly larger in size in comparison to prior CT. Findings discussed with Dr. Elizondo at approximately 0745 hours on May 24, 2024.
Care Review
Plan reviewed with: Physician (Dr. Schuster)
--- NOTE | 2024-11-25 13:01 | W.PN.HOSP.TC ---
Today's Communication/Plan
-
outpatient abx as per Dr. Chávez to be set up
potential placement of PICC tomorrow if cx remain neg
Assessment / Plan
Assessment / Plan
64y M with PMH significant for prostate cancer and rectal cancer s/p multiple courses of pelvic XRT, presacral soft tissue swelling, chronic L ureteral obstruction and bilateral PCN in place who presented to ED complaining of intermittent fevers
and chills and bilateral groin pain. 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 Fever at home to 103 - 104 degrees. He took Tylenol each night and his fever improved.
Patient denies any cough / SOB, abdominal pain, N/V, etc. No known sick contacts. He has chronic bilateral PCN in place (R is currently capped - L is chronic / permanent). believes that urine from L PCN has been more malodorous.
Fever was 104 at home on DOA and he took Tylenol.
WBC 14.4-->11.3-->9.0-->7.3
Blood Cx +Staph Aureus
Ur Cx mixed azeem
Successful fluoroscopically guided exchange of bilateral percutaneous nephrostomy catheters, performed on 11/22
Patient also complains of bilateral groin pain. Patient states that this pain has been gradually progressive over the past 3 weeks or so.
He admits to some discomfort after walking on the treadmill at the gym 2-3 weeks ago.
He took a trip to [place] which involved a significant amount of walking. His pain became severe at that time and he was confined to bed / wheelchair for much of his trip.
He has continued to have significant discomfort and difficulty ambulating since that time.
No specific fall, injury, trauma, etc.
No radiation of pain into the legs or back.
Patient notes that he just placed on a course of steroids from his PCP for suspected inflammatory process in the groin / hips.
No significant improvement despite steroids. Steroids to complete 11/25
Non-Ischemic Myocardial Injury
A/P:
# Probable UTI/Bacteremia
Blood Cx Pos x 2 MSSA
# Sepsis secondary to the above
# Chronic Left Ureteral Obstruction
# Left Percutaneous Nephrostomy
Yes, Sepsis is associated with/due to Percutaneous Nephrostomy Tube.
Patient presents with fever (103 at home), tachycardia, tachypnea, leukocytosis and UA consistent with infection. endorses urine has become foul smelling
urine cultures (2 sets sent, one from L nephrostomy tube, the other from clean catch during urination). mixed azeem
Inf Dis consult appreciated
Now on Ancef 2 gms IV q8h
Discussed with Dr. Chávez, length of time on abx as per ID now estimated for [address] Cuba, who knows patient well
Pt had nausea which he relates to Ancef. Zofran did not help, was given Compazine which helped his nausea and he had no side effects (has taken before)
# Bilateral Groin Pain
Patient with pain in bilateral groin c/w hip joint pain.
Worse with standing / weight bearing / ROM of the hips.
No evidence of AVN, etc on CT scan done in the ED.
CT: Bilateral nephrostomy catheters seen in position, as detailed above, without renal collecting system dilatation.
Some 'fecalized' small bowel suggesting slow transit. Oral contrast only opacifying stomach and nondilated proximal to mid small bowel. Large volume stool predominantly in the proximal colon. Left lower quadrant ostomy.
Postsurgical changes with prominent soft tissues and small fluid collection in the presacral soft tissues, soft tissue fluid collection perhaps slightly larger in size in comparison to prior CT. Findings discussed with Dr. Elizondo at approximately 0745
hours on May 24, 2024.
Unclear etiology of discomfort that seems fairly severe with activity.
? related to presacral fibrosis / scarring.
? possible septic arthritis given pain / fevers / etc.
PT evaluation.
Pain control.
Follow for changes in symptoms.
# ABRAM
SCr = 1.4-->1.3-->1.0
Likely secondary to sepsis.
Hyponatremia
# Colon Cancer s/p Colectomy and Colostomy
# Chronic Constipation
CT scan with slow transit / fecalization. No clinical symptoms c/w SBO.
No abdominal pain, N/V, etc. Typical stool output from ostomy.
Continue aggressive bowel regimen including BID Miralax, etc.
Follow for ostomy function / monitor for any new issues or complaints.
# Chronic Anemia
Hgb much improved from prior baseline.
Follow for changes.
#There was the concern that pt went into a. fib overnight 11/23. Cardiology consult appreciated felt to be SVT and felt not to need OAC. Will need a 30 day monitor post dc
# Chronic Pain Syndrome
# Chronic Opioid Dependence
Continue current pain med regimen and adjust as needed.
PT eval / increase mobility as tolerated.
DVT Prophylaxis: Subcut Heparin
Code Status: Full
Anticipated Discharge: 24 - 48 hours
Subjective/Interval History
-
Date of Service: November 25, 2024
In good spirits
Objective Data
-
Labs:
Laboratory Results
11/25/24
06:48
WBC 7.3
Hgb 9.8 L
Hct 30.7 L
Plt Count 100 L D
Sodium 139
Potassium 4.4
Chloride 108 H
Carbon Dioxide 23
BUN 34 H
Creatinine 1.0
Glucose 145 H
Calcium 8.5
Vital Signs:
Vital Signs
Temp Pulse Resp BP Pulse Ox
98.5 F 76 18 124/75 94
11/25/24 11:55 11/25/24 11:55 11/25/24 11:55 11/25/24 11:55 11/25/24 11:55
I&O
11/24/24 11/25/24 11/26/24
06:59 06:59 06:59
Intake Total 3990 / 3990 1020 / 1020
Output Total 2059 / 2299
Balance 1930 / 1930 -1280 / -1280
Review of Systems
-
History Source: Patient, Family ( in room, many concerns) and Coordinated Provider
Constitutional: Reports Fever (T max 102.5 11/22 at 11:23, afebrile since)
EENT: Reports No Symptoms Reported
Respiratory: Reports No Symptoms
Cardiac: Reports No Symptoms; Denies Palpitations (resolved)
Abdomen/GI: Denies Abdominal Pain or Nausea (resolved)
Physical Exam
-
General: Well Developed, Well Nourished and No Apparent Distress
HEENT: Normocephalic, Atraumatic and Moist Mucous Membranes
Respiratory: Clear to Auscultation; Negative Wheezes, Rales or Rhonchi
Cardiac: Regular Rhythm and S1/S2
GI: Soft, Nontender, Nondistended and Normal Bowel Sounds
Genito-urinary: No Costovertebral Tender and Nephrostomy Tubes (bilateral)
Musculoskeletal: No Clubbing, No Cyanosis and No Edema
Neuro: Awake, Alert and Oriented
--- NOTE | 2024-11-25 16:00 | PTCARENOTE ---
Patient OOB to bathroom. HR 180s. Patient states 'heart is racing a little bit'. Assisted back to bed by . HR broke on own down to 100s but then increased back up to 160s-170s. EKG reading Afib with RVR. Cardiology and Hospitalist made aware.
Patient continues to state he feels 'a little fluttering'. Will continue to monitor closely.
[2024-11-25] MEDS: CARDIZEM 10 MG IV (17:20)
[2024-11-25] MEDS: TOPROL XL 25 MG PO (17:22)
[2024-11-25] MEDS: DELTASONE 10 MG PO (17:22)
[2024-11-25] MEDS: CARDIZEM 125 IV (17:30)
--- NOTE | 2024-11-25 17:30 | PTCARENOTE ---
Addendum entered by Lauren Jameson RN 11/25/24 19:52:
Patient refusing to take Eliquis at this time, states 'I would prefer to stay away from blood thinners as long as I can'. Dr Head made aware.
Original Note:
Orders for Cardizem 10mg x1 bolus, then Cardizem gtt @ 5mg/hr and Eliquis 5mg BID to start. HR remains 160s-180s.
--- NOTE | 2024-11-25 18:30 | PTCARENOTE ---
Addendum entered by Lauren Jameson RN 11/25/24 19:56:
HR noted to be 90s-100s in Afib. Patient continues to feel fluttering but states is better. Will continue to monitor.
Original Note:
HR remains elevated after gtt started and bolus given. Orders to increase Cardizem gtt from 5mg to 10mg given by Cardiology. Updated plan of care with patient and .
[2024-11-25] MEDS: COLACE 100 MG PO (20:46)
[2024-11-25] MEDS: MIRALAX 17 GRAMS PO (20:46)
[2024-11-25] MEDS: ELAVIL 10 MG PO (21:37)
--- NOTE | 2024-11-25 22:00 | PTCARENOTE ---
Monitor now shows NSR w/HR 80's. BP 123/74 Rhythm confirmed w/EKG. Xiomara CHEN notified.Cardizem gtt to be decreased to 5mg/hr.
[2024-11-26] VITALS (7 sets, daily range): BP systolic 111–142; BP diastolic 64–80; BMI 26.9
[2024-11-26] MEDS: ANCEF 10 IV ×3 (05:21→22:12)
[2024-11-26] MEDS: FLUSH (NSS) 2 FLUSH IV ×2 (05:22→14:10)
--- NOTE | 2024-11-26 07:47 | W.PN.CD ---
Today's Communication / Plan
-
Stop dilt drip
Change metoprolol to 50mg daily
He does NOT want anticoagulation despite stroke risk
We will sign off. Our office will call him with follow-up.
Impression / Plan
-
Paroxysmal atiral fibrillation
- occurred on 11/25 PM. Symptomatic with HR up to 140s. Converted to NSR with dilt drip.
- Increase Metoprolol XL to 50mg daily (25mg prn prior to admission)
- CHADsVasc 2 (age, HTN). He does NOT want AC. We had a long discussion about stroke risk. He thinks it is 'too much' to go from Metoprolol prn to Metoprolol + Eliquis daily
- Updated echo below
- We will arrange follow-up in our office
SVT/Sinus tachycardia - rapid rates noted on tele.
- continue to monitor.
- Metoprolol as above
Aflutter - s/p ablation 2013, stable w/o recurrence.
- monitor on tele.
HTN - stable, not on meds currently.
- followed by Dr. Cordero.
HLD - stable, previously on Tricor.
Aortic dilatation - mild dilation of aortic root (4.3cm) and dilation or ascending aorta (3.7cm).
Fevers - per hospitalist on ABX.
Subjective: Symptomatic afib yesterday afternoon. Feels fine this AM. Does not want to be on AC.
TTE (11/23/24):
Normal LV size and function with no regional wall motion abnormalities.
LVEF is 60-65% by visual estimation.
Mild concentric LVH.
Normal right ventricular size and function.
Mild eccentric mitral regurgitation.
Insufficient TR for estimation of PASP.
Dilated aortic root. Sinus of Valsalva measures 4.3 cm.
Compared to prior from May 25, 2024, no significant change.
Physical Exam
Vital Signs/Labs
Vital Signs
Temp Pulse Resp BP Pulse Ox
98.8 F 80 18 111/64 95
11/26/24 04:14 11/26/24 04:14 11/26/24 04:14 11/26/24 04:14 11/26/24 04:14
11/25/24 11/26/24 11/27/24
06:59 06:59 06:59
Actual Weight 198 lb 2 oz
Magnesium 1.9 mg/dl (1.6-2.3) 11/22/24 23:05
LAB Results
11/23/24
08:43
Troponin I 0.143 H*
Physical Exam
Constitutional: No acute distress and Comfortable
Cardiovascular: Rhythm & rate is regular, Pedal edema is absent, S1S2 is normal and Murmur/rub/gallop absent
Respiratory: Respiratory effort normal and Lungs clear to auscul.
Neuro/Psych: AO x 3
Data Reviewed
-
Date of Service: November 26, 2024
Medical Decision Making: Reviewed Test Results, Independent Historian Assessment, Test Interpretation and Review of Case with other Provider
EKG: Tracing Personally Visualized and interpreted
Echo: Report Reviewed by me
Labs: Labs Reviewed by me
--- NOTE | 2024-11-26 07:48 | W.PN.UPDATE ---
Update Note
Progress Note Update
Patient well-known to me - previously under care of Urology @[facility] (Dr. Washington).
11/22: s/p exchange of bilateral PCNs for radiation-induced ureteral stricture disease and obstruction (IR)
Undergoes left PCN changes chronically q3mo w/ IR.
Evaluated by Dr. Emmanuel at my request for evaluation of any reconstructive options - after lengthy discussion of high risk anatomy, decision made to pursue chronic supravesical diversion w/ PCNs.
H/o rectal cancer (1992) s/p neoadjuvant chemotherapy, XRT, and LAR ([facility], 1992).
H/o cT2c Enedina 8 prostate cancer (2017) s/p attempted radical prostatectomy ([facility], 2018) - aborted due to significant adhesions and hostile pelvis from prior XRT.
s/p ADT x24 mo + XRT completed 10/2018.
Noted intermittent fevers, chills, sweats, and fever x2 nights (103-104F).
R PCN capped, L PCN to drainage.
Admitted and started on IV antibiotics - BCx x2 +Staph aureus.
- IV antibiotics per ID
- Maintain bilateral PCNs to drainage (s/p change 11/22)
- Continue PCN changes q3mo (coordinated by Urology)
- F/U w/ Dr. Cuba as outpatient as scheduled
[2024-11-26 07:57] LABS: % Basophils 0.2 % (0-2); % Eosinophils 1.9 % (0-6); % Immature Granulocytes 0.6 % (0-0.5); % Lymphocytes 26.9 % (20.5-51.1); % Monocytes 9.1 % (1.7-9.3); % Neutrophils 61.3 % (42.2-75.2); Absolute Eosinophils 0.1 10^3/uL (0-0.7); Absolute Lymphocytes 1.7 10^3/uL (1.2-3.4); Absolute Monocytes 0.6 10^3/uL (0.1-0.6); Absolute Neutrophils 3.9 10^3/uL (1.4-6.5); Hemoglobin 9.7 g/dL (13.0-18.0); Mean Corp Hgb Conc. 31.3 g/dL (33.0-37.0); Mean Corpuscular Hgb 27.5 pg (27.0-31.0); Mean Corpuscular Volume 87.8 fL (80.0-94.0); Mean Platelet Volume 10.4 fL (7.4-10.4); Nucleated Red Blood Cells % 0 % (-); Platelet Count 132 10^3/uL (130-400); Red Blood Cell Count 3.53 10^6/uL (4.70-6.10); Red Cell Dist. Width 15.5 % (11.5-14.5); White Blood Cell Count 6.4 10^3/uL (4.8-10.8)
[2024-11-26 08:15] LABS: Blood Urea Nitrogen 30 mg/dl (9-20); Calcium 8.4 mg/dl (8.4-10.2); Carbon Dioxide 26 mmol/L (22-30); Chloride 105 mmol/L (98-107); Estimated Creatinine Clearance 81 ml/min; Glucose 124 mg/dl (70-99); Potassium 4.4 mmol/L (3.5-5.1); Sodium 139 mmol/L (135-145); eGFR > 60.00
[2024-11-26] MEDS: OXYCONTIN (CONTROLLED RELEASE) 40 MG PO ×2 (09:05→20:48)
[2024-11-26] MEDS: PROTONIX IV 40 MG IV (09:05)
[2024-11-26] MEDS: COLACE 100 MG PO (09:05)
[2024-11-26] MEDS: FLUSH (NSS) 1 FLUSH IV ×2 (09:05→09:06)
[2024-11-26] MEDS: NSS (PRESERVATIVE FREE) 10 ML IV (09:05)
[2024-11-26] MEDS: MIRALAX PO ×2 (09:11→20:47)
--- NOTE | 2024-11-26 12:10 | W.PN.ID1 ---
Date of Service
Date of Service: November 26, 2024
Today's Communication
Continue cefazolin. DC home when Home Infusion set up.
Assessment / Plan
# Complicated UTI
.hx obstructive uropathy with bilateral perc nephrostomy tubes ; (right catheter was previously capped)
. 11/22 s/p bilateral perc nephrostomy catheter change, right tube uncapped. Noted to have malodorous urine from right kidney.
# Uncomplicated Staph aureus bacteremia (MSSA), urine source
# Fever resolved
# Leukocytosis resolved
# Acute Thrombocytopenia improving
Plan:
- TTE no gross vege
- Repeat blood cx's neg to date.
- Continue cefazolin 2g IV q8h through 12/09/24.
Weekly CBC/diff, comp.
- Home infusion sheet submitted to case management11/25.
- Place midline today
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
A-fib s/p ablation
HTN
Dyslipidemia
Prostate cancer
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
Right hydronephrosis s/p right perc nephrostomy (07/2024)
Rectal CA (1992) s/p XRT and resection, end colostomy
Hx bowel obstruction
Asthma
Prostate CA s/p TURP and XRT
Appendectomy
Chief Complaint
-: Bacteremia
Subjective / Review of Systems
No further nausea. Has not required Compazine.
Vital Signs / Physical Exam
Vital Signs
Vital Signs
Temp Pulse Resp BP Pulse Ox
97.6 F 79 18 135/74 95
11/26/24 11:05 11/26/24 11:05 11/26/24 11:05 11/26/24 11:05 11/26/24 11:05
Physical Exam
Constitutional: No Acute Distress
Cardiovascular: Regular Rate and S1/S2
Pulmonary: Clear
Gastrointestinal: Soft, Non Tender and Non Distended
Genito-Urinary: Clear Urine (Bilateral PERC nephrostomy); Negative CVA Tenderness
Neurological: AO x 3
Objective Data
Lab Data
Lab Results
11/26/24 06:38
11/26/24 06:38
ESR 53 mm/hour (0-20) H 11/22/24 08:51
Estimated Creat Clear 81 ml/min 11/26/24 06:38
Lactic Acid 0.7 mmol/L (0.7-2.0) 11/22/24 23:05
Total Bilirubin 1.2 mg/dl (0.2-1.3) 11/23/24 08:43
AST 14 U/L (17-59) L 11/23/24 08:43
ALT 20 U/L (0-50) 11/23/24 08:43
Alkaline Phosphatase 84 U/L (38-126) 11/23/24 08:43
C-Reactive Protein 186.90 mg/L (0.0-10.00) H 11/22/24 08:51
Most recent labs reviewed.
Micro Results:
11/24/24 06:56 Blood Culture - Preliminary
Blood/Venous No Growth in 48 hours- Final report to follow
11/24/24 06:06 Blood Culture - Preliminary
Blood/Venous No Growth in 48 hours- Final report to follow
11/22/24 10:26 Blood Culture - Preliminary
Blood/Venous S aureus-Methicillin Sensitive
Gram Stain - Preliminary
11/22/24 08:51 Blood Culture - Final
Blood/Venous S aureus-Methicillin Sensitive
Gram Stain - Final
11/21/24 23:01 Urine Culture - Final
Urine
11/22/24 04:57 Urine Culture - Final
Urine
11/22/24 08:47 Influenza Types A & B (PARVEEN) - Final
Nasal Swab Negative for Influenza A & B, NAAT
Negative results must be combined with clinical observations
and patient history.
Nucleic Acid Amplification test (NAAT)performed on the
[employer] platform.
11/22/24 CT a/p: Bilateral nephrostomy catheters seen in position, as detailed above, without renal collecting system dilatation. Some 'fecalized' small bowel suggesting slow transit. Oral contrast only opacifying stomach and nondilated proximal to
mid small bowel. Large volume stool predominantly in the proximal colon. Left lower quadrant ostomy. Postsurgical changes with prominent soft tissues and small fluid collection in the presacral soft tissues, soft tissue fluid collection perhaps
slightly larger in size in comparison to prior CT. Findings discussed with Dr. Elizondo at approximately 0745 hours on May 24, 2024.
--- NOTE | 2024-11-26 13:48 | W.PN.UPDATE ---
Update Note
Progress Note Update
Discussed nephrostomy tube management plan w/ patient and spouse this afternoon.
11/22: s/p exchange of bilateral PCNs.
Plan:
- Complete IV antibiotic course per ID for MSSA bacteremia on discharge
- Right antegrade nephrostogram +/- capping trial pending right ureteral patency/drainage in 12/2024
- Plan for bilateral nephrostomy tube exchange vs. left PCN exchange and right PCN removal in 03/2025
All questions of patient and spouse answered.
D/w Hospitalist.
[2024-11-26] MEDS: VISBIOME 2 CAP PO (14:10)
[2024-11-26] MEDS: PERCOCET 5/325 1 TABLET PO (15:50)
--- NOTE | 2024-11-26 17:13 | W.PN.HOSP.TC ---
Today's Communication/Plan
-
await prior auth for home IV Ancef
Assessment / Plan
Assessment / Plan
64y M with PMH significant for prostate cancer and rectal cancer s/p multiple courses of pelvic XRT, presacral soft tissue swelling, chronic L ureteral obstruction and bilateral PCN in place who presented to ED complaining of intermittent fevers
and chills and bilateral groin pain. Patient states that he has had shaking chills, sweats and fever at home each of the past 2 nights [employer]. Fever at home to 103 - 104 degrees. He took Tylenol each night and his fever improved.
Patient denies any cough / SOB, abdominal pain, N/V, etc. No known sick contacts. He has chronic bilateral PCN in place (R is currently capped - L is chronic / permanent). believes that urine from L PCN has been more malodorous.
Fever was 104 at home on DOA and he took Tylenol.
WBC 14.4-->11.3-->9.0-->7.3
Blood Cx +Staph Aureus
Ur Cx mixed azeem
Successful fluoroscopically guided exchange of bilateral percutaneous nephrostomy catheters, performed on 11/22
Patient also complains of bilateral groin pain. Patient states that this pain has been gradually progressive over the past 3 weeks or so.
He admits to some discomfort after walking on the treadmill at the gym 2-3 weeks ago.
He took a trip to [place] which involved a significant amount of walking. His pain became severe at that time and he was confined to bed / wheelchair for much of his trip.
He has continued to have significant discomfort and difficulty ambulating since that time.
No specific fall, injury, trauma, etc.
No radiation of pain into the legs or back.
Patient notes that he just placed on a course of steroids from his PCP for suspected inflammatory process in the groin / hips.
No significant improvement despite steroids. Steroids to complete 11/25
Non-Ischemic Myocardial Injury
A/P:
# Probable UTI/Bacteremia
Blood Cx Pos x 2 MSSA
# Sepsis secondary to the above
# Chronic Left Ureteral Obstruction
# Left Percutaneous Nephrostomy
Yes, Sepsis is associated with/due to Percutaneous Nephrostomy Tube.
Patient presents with fever (103 at home), tachycardia, tachypnea, leukocytosis and UA consistent with infection. endorses urine has become foul smelling
urine cultures (2 sets sent, one from L nephrostomy tube, the other from clean catch during urination). mixed azeem
Inf Dis consult appreciated
MSSA
Now on Ancef 2 gms IV q8h
Discussed with Dr. Chávez, length of time on abx as per ID now estimated for [address] [place], who knows patient well, appreciated
Pt had nausea which he relates to Ancef. Zofran did not help, was given Compazine which helped his nausea and he had no side effects (has taken before)
# Bilateral Groin Pain
Patient with pain in bilateral groin c/w hip joint pain.
Worse with standing / weight bearing / ROM of the hips.
No evidence of AVN, etc on CT scan done in the ED.
CT: Bilateral nephrostomy catheters seen in position, as detailed above, without renal collecting system dilatation.
Some 'fecalized' small bowel suggesting slow transit. Oral contrast only opacifying stomach and nondilated proximal to mid small bowel. Large volume stool predominantly in the proximal colon. Left lower quadrant ostomy.
Postsurgical changes with prominent soft tissues and small fluid collection in the presacral soft tissues, soft tissue fluid collection perhaps slightly larger in size in comparison to prior CT. Findings discussed with Dr. Elizondo at approximately 0745
hours on May 24, 2024.
Unclear etiology of discomfort that seems fairly severe with activity.
? related to presacral fibrosis / scarring.
? possible septic arthritis given pain / fevers / etc.
PT evaluation.
Pain control.
Follow for changes in symptoms.
# ABRAM
SCr = 1.4-->1.3-->1.0
Likely secondary to sepsis.
Hyponatremia
# Colon Cancer s/p Colectomy and Colostomy
# Chronic Constipation
CT scan with slow transit / fecalization. No clinical symptoms c/w SBO.
No abdominal pain, N/V, etc. Typical stool output from ostomy.
Continue aggressive bowel regimen including BID Miralax, etc.
Follow for ostomy function / monitor for any new issues or complaints.
# Chronic Anemia
Hgb much improved from prior baseline.
Follow for changes.
#PAF resolved, now in NSR. Pt very hesitant on taking Eliquis. Long discussion, he wants to think about it
Call placed and discussed with cardio. Rec is to hold off on the 30 day holter and to discuss further when seen in the office
# Chronic Pain Syndrome
# Chronic Opioid Dependence
Continue current pain med regimen and adjust as needed.
PT eval / increase mobility as tolerated.
DVT Prophylaxis: Subcut Heparin
Code Status: Full
Anticipated Discharge: 24 - 48 hours
Subjective/Interval History
-
Date of Service: November 26, 2024
Awaiting finalization of insurance aspects to set up home infusion of abx
Objective Data
-
Labs:
Laboratory Results
11/26/24
06:38
WBC 6.4
Hgb 9.7 L
Hct 31.0 L
Plt Count 132 D
Sodium 139
Potassium 4.4
Chloride 105
Carbon Dioxide 26
BUN 30 H
Creatinine 1.0
Glucose 124 H
Calcium 8.4
Vital Signs:
Vital Signs
Temp Pulse Resp BP Pulse Ox
97.6 F 77 18 142/80 97
11/26/24 15:08 11/26/24 15:08 11/26/24 15:08 11/26/24 15:08 11/26/24 15:08
I&O
11/25/24 11/26/24 11/27/24
06:59 06:59 06:59
Intake Total 1020 / 1020 1020 / 1020
Output Total 2300 / 2300 1705 / 1705
Balance -1280 / -1280 -685 / -685
Review of Systems
-
History Source: Patient, Family ( in room, many concerns) and Coordinated Provider
Constitutional: Reports Fever (T max 102.5 11/22 at 11:23, afebrile since)
EENT: Reports No Symptoms Reported
Respiratory: Reports No Symptoms
Cardiac: Reports No Symptoms; Denies Palpitations (resolved)
Abdomen/GI: Denies Abdominal Pain or Nausea (resolved)
Physical Exam
-
General: Well Developed, Well Nourished and No Apparent Distress
HEENT: Normocephalic, Atraumatic and Moist Mucous Membranes
Respiratory: Clear to Auscultation; Negative Wheezes, Rales or Rhonchi
Cardiac: Regular Rhythm and S1/S2
GI: Soft, Nontender, Nondistended and Normal Bowel Sounds
Genito-urinary: No Costovertebral Tender and Nephrostomy Tubes (bilateral)
Musculoskeletal: No Clubbing, No Cyanosis and No Edema
Neuro: Awake, Alert and Oriented
--- NOTE | 2024-11-26 17:23 | CM ---
As per chart ID ordering IV antibiotic home therapy.
Spoke with Candis. She agreed to use [facility] for infusion and requested [facility] for nephrostomy care.
Bernice Morton Aware of referral thats in care port.
Spoke with Marti Donovan alll clinical faxed to [facility].
Midline placed information also provided to Marti .
Marti taught pt and at bedside today.
Pt for discharge tomorrow after afternoon IV antibiotics.
[facility] will delver tomorrow evening . Pt to administer IV antibiotics every 8 as ordered in home.
Marti informed pt of out of pocket med cost.
IMM reviewed signed and on chart.
PLAN Home tomorrow after IV antibiotic . [facility] and [facility] fax [phone]
[2024-11-26] MEDS: TOPROL XL 50 MG PO (17:35)
[2024-11-26] MEDS: COLACE PO (20:47)
[2024-11-26] MEDS: ELAVIL 10 MG PO (20:48)
[2024-11-27 03:45] VITALS: BP 130/76
[2024-11-27 05:09] VITALS: BMI 27.2
[2024-11-27] MEDS: PERCOCET 5/325 1 TABLET PO ×2 (05:14→14:06)
[2024-11-27] MEDS: ANCEF 10 IV ×3 (05:14→22:15)
[2024-11-27 07:30] VITALS: BP 144/79
[2024-11-27] MEDS: PROTONIX 40 MG PO (08:59)
[2024-11-27] MEDS: MIRALAX PO (08:59)
[2024-11-27] MEDS: VISBIOME 2 CAP PO (08:59)
[2024-11-27] MEDS: COLACE PO ×2 (08:59→20:30)
[2024-11-27] MEDS: OXYCONTIN (CONTROLLED RELEASE) 40 MG PO ×2 (08:59→20:29)
[2024-11-27 10:23] LABS: Glucose - Point of Care 117 mg/dl (70-99)
--- NOTE | 2024-11-27 10:30 | RR ---
A Rapid Response was called on this patient, please see Rapid Response form.
patient was in bathroom- monitor alarming for increased heart rate- 190's, narrow complex tachycardia. a rapid response was called. patient assisted to bed, only a slight palpitation felt by patient. BP 149/82, once in bed monitor afib in the
140's, Dr Schuster and Dr boyle made aware. 12 lead ECG completed confirming a fib.
--- NOTE | 2024-11-27 10:47 | W.PN.CD ---
Today's Communication / Plan
-
Increase metoprolol => now tartrate 50 q6
I reviewed the risks/benefits of anticoagulation and pt declines
Impression / Plan
-
MSSA bacteremia
- ID involved, felt to be urologic source
Paroxysmal atrial fibrillation
- Recurred today, rapid rates in shower but less than 150 at rest in bed
- Mildly symptomatic
- Will convert metoprolol succinated and move to tartrate and go to 50 q6, convert to succinate closer to discharge
- Pt declining anticoagulation, I explained the increased stroke risk associated with his AFib given his age/HTN
Aflutter - s/p ablation 2013, w/o recurrence.
HTN
HLD
Aortic dilatation - mild dilation of aortic root (4.3cm) and dilation or ascending aorta (3.7cm).
Hx obstructive uropathy, urology has been involved, he has had several procedures
Subjective: Symptomatic afib today
TTE (11/23/24):
Normal LV size and function with no regional wall motion abnormalities.
LVEF is 60-65% by visual estimation.
Mild concentric LVH.
Normal right ventricular size and function.
Mild eccentric mitral regurgitation.
Insufficient TR for estimation of PASP.
Dilated aortic root. Sinus of Valsalva measures 4.3 cm.
Compared to prior from May 25, 2024, no significant change.
Physical Exam
Vital Signs/Labs
Vital Signs
Temp Pulse Resp BP Pulse Ox
99.0 F 87 18 144/79 94
11/27/24 07:30 11/27/24 07:30 11/27/24 07:30 11/27/24 07:30 11/27/24 07:30
11/26/24 11/27/24 11/28/24
06:59 06:59 06:59
Actual Weight 89.868 kg 90.86 kg
11/26/24 06:38
04/28/25 06:38
Magnesium 1.9 mg/dl (1.6-2.3) 11/22/24 23:05
Physical Exam
Constitutional: No acute distress and Comfortable
Cardiovascular: Rhythm/rate is irregular and S1S2 is normal
Respiratory: Respiratory effort normal and Lungs clear to auscul.
GI: Soft and Distention absent
Neuro/Psych: AO x 3
Data Reviewed
-
Date of Service: November 27, 2024
[2024-11-27] MEDS: LOPRESSOR 50 MG PO ×2 (11:00→17:14)
--- NOTE | 2024-11-27 11:00 | PTCARENOTE ---
patient remains in Afib 130-170's, BP 154/92 ordered and given lopressor 50 mg orally. plan of care ongoing.
[2024-11-27 11:40] VITALS: BP 124/86
--- NOTE | 2024-11-27 11:45 | PTCARENOTE ---
patient remains in afib 130-160's, BP 124/86. at bedside. patient and with many questioning regarding afib , medications, specifically anticoagulants and plan. questions answered,. education given on afib and medications and
complications. both voiced understanding. plan of care on going.
--- NOTE | 2024-11-27 12:25 | PTCARENOTE ---
patient noted to be in sinus rhythm on tele monitor , rate in the 80's. BP 125/84. patient assessed. feeling slightly improved. Dr Schuster aware. plan of care on going. remains at bedside.
--- NOTE | 2024-11-27 13:36 | W.PN.ID1 ---
Date of Service
Date of Service: November 27, 2024
Today's Communication
Continue cefazolin.
Assessment / Plan
# Complicated UTI
.hx obstructive uropathy with bilateral perc nephrostomy tubes ; (right catheter was previously capped)
. 11/22 s/p bilateral perc nephrostomy catheter change, right tube uncapped. Noted to have malodorous urine from right kidney.
# Uncomplicated Staph aureus bacteremia (MSSA), urine source
# Fever resolved
# Leukocytosis resolved
# Acute Thrombocytopenia resolved
# Afib/RVR
Plan:
- TTE no gross vege
- Repeat blood cx's neg to date.
- Continue cefazolin 2g IV q8h through 12/09/24.
Weekly CBC/diff, comp.
- midline in place.
- Home IV all set up.
- Not ready for dc due to Afib.
# Conditions [employer] HEL[employer]
A-fib s/p ablation
HTN
Dyslipidemia
Prostate cancer
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
Right hydronephrosis s/p right perc nephrostomy (07/2024)
Rectal CA (1992) s/p XRT and resection, end colostomy
Hx bowel obstruction
Asthma
Prostate CA s/p TURP and XRT
Appendectomy
Chief Complaint
-: Bacteremia
Subjective / Review of Systems
Discharge cancelled due to afib with RVR. No nausea.
Vital Signs / Physical Exam
Vital Signs
Vital Signs
Temp Pulse Resp BP Pulse Ox
99.6 F 79 18 124/86 98
11/27/24 11:40 11/27/24 11:40 11/27/24 11:40 11/27/24 11:40 11/27/24 11:40
Physical Exam
Constitutional: No Acute Distress and Comfortable
Eyes: No Conjunctival Hemorrhage and Sclera Anicteric
Cardiovascular: Regular Rate and S1/S2
Pulmonary: Clear
Gastrointestinal: Soft, Non Tender and Non Distended
Genito-Urinary: Clear Urine (Bilateral PERC nephrostomy); Negative CVA Tenderness
Neurological: AO x 3
Lines: Other (Midline no erythema.)
Objective Data
Lab Data
Lab Results
11/26/24 06:38
11/26/24 06:38
ESR 53 mm/hour (0-20) H 11/22/24 08:51
Estimated Creat Clear 81 ml/min 11/26/24 06:38
Lactic Acid 0.7 mmol/L (0.7-2.0) 11/22/24 23:05
Total Bilirubin 1.2 mg/dl (0.2-1.3) 11/23/24 08:43
AST 14 U/L (17-59) L 11/23/24 08:43
ALT 20 U/L (0-50) 11/23/24 08:43
Alkaline Phosphatase 84 U/L (38-126) 11/23/24 08:43
C-Reactive Protein 186.90 mg/L (0.0-10.00) H 11/22/24 08:51
Most recent labs reviewed.
Micro Results:
11/24/24 06:56 Blood Culture - Preliminary
Blood/Venous No Growth in 72 hours- Final report to follow
11/24/24 06:06 Blood Culture - Preliminary
Blood/Venous No Growth in 72 hours- Final report to follow
11/22/24 10:26 Blood Culture - Preliminary
Blood/Venous S aureus-Methicillin Sensitive
Gram Stain - Preliminary
11/22/24 08:51 Blood Culture - Final
Blood/Venous S aureus-Methicillin Sensitive
Gram Stain - Final
11/21/24 23:01 Urine Culture - Final
Urine
11/22/24 04:57 Urine Culture - Final
Urine
11/22/24 08:47 Influenza Types A & B (PARVEEN) - Final
Nasal Swab Negative for Influenza A & B, NAAT
Negative results must be combined with clinical observations
and patient history.
Nucleic Acid Amplification test (NAAT)performed on the
[employer] platform.
11/22/24 CT a/p: Bilateral nephrostomy catheters seen in position, as detailed above, without renal collecting system dilatation. Some 'fecalized' small bowel suggesting slow transit. Oral contrast only opacifying stomach and nondilated proximal to
mid small bowel. Large volume stool predominantly in the proximal colon. Left lower quadrant ostomy. Postsurgical changes with prominent soft tissues and small fluid collection in the presacral soft tissues, soft tissue fluid collection perhaps
slightly larger in size in comparison to prior CT. Findings discussed with Dr. Elizondo at approximately 0745 hours on May 24, 2024.
[2024-11-27] MEDS: FLUSH (NSS) 2 FLUSH IV (13:58)
[2024-11-27 15:03] VITALS: BP 124/66
--- NOTE | 2024-11-27 15:12 | W.PN.HOSP.TC ---
Today's Communication/Plan
-
Metoprolol dose increased
Assessment / Plan
Assessment / Plan
64y M with PMH significant for prostate cancer and rectal cancer s/p multiple courses of pelvic XRT, presacral soft tissue swelling, chronic L ureteral obstruction and bilateral PCN in place who presented to ED complaining of intermittent fevers
and chills and bilateral groin pain. Patient states that he has had shaking chills, sweats and fever at home each of the past 2 nights [employer]. Fever at home to 103 - 104 degrees. He took Tylenol each night and his fever improved.
Patient denies any cough / SOB, abdominal pain, N/V, etc. No known sick contacts. He has chronic bilateral PCN in place (R is currently capped - L is chronic / permanent). believes that urine from L PCN has been more malodorous.
Fever was 104 at home on DOA and he took Tylenol.
WBC 14.4-->11.3-->9.0-->7.3
Blood Cx +Staph Aureus
Ur Cx mixed azeem
Successful fluoroscopically guided exchange of bilateral percutaneous nephrostomy catheters, performed on 11/22
Patient also complains of bilateral groin pain. Patient states that this pain has been gradually progressive over the past 3 weeks or so.
He admits to some discomfort after walking on the treadmill at the gym 2-3 weeks ago.
He took a trip to [place] which involved a significant amount of walking. His pain became severe at that time and he was confined to bed / wheelchair for much of his trip.
He has continued to have significant discomfort and difficulty ambulating since that time.
No specific fall, injury, trauma, etc.
No radiation of pain into the legs or back.
Patient notes that he just placed on a course of steroids from his PCP for suspected inflammatory process in the groin / hips.
No significant improvement despite steroids. Steroids to complete 11/25
Non-Ischemic Myocardial Injury
A/P:
# Probable UTI/Bacteremia
Blood Cx Pos x 2 MSSA
# Sepsis secondary to the above
# Chronic Left Ureteral Obstruction
# Left Percutaneous Nephrostomy
Yes, Sepsis is associated with/due to Percutaneous Nephrostomy Tube.
Patient presents with fever (103 at home), tachycardia, tachypnea, leukocytosis and UA consistent with infection. endorses urine has become foul smelling
urine cultures (2 sets sent, one from L nephrostomy tube, the other from clean catch during urination). mixed azeem
Inf Dis consult appreciated
MSSA
Now on Ancef 2 gms IV q8h
Discussed with Dr. Chávez, length of time on abx as per ID now estimated for [address] Cuba, who knows patient well, appreciated
Pt had nausea which he relates to Ancef. Zofran did not help, was given Compazine which helped his nausea and he had no side effects (has taken before). Today he did not have any nausea following Ancef
# Bilateral Groin Pain
Patient with pain in bilateral groin c/w hip joint pain.
Worse with standing / weight bearing / ROM of the hips.
No evidence of AVN, etc on CT scan done in the ED.
CT: Bilateral nephrostomy catheters seen in position, as detailed above, without renal collecting system dilatation.
Some 'fecalized' small bowel suggesting slow transit. Oral contrast only opacifying stomach and nondilated proximal to mid small bowel. Large volume stool predominantly in the proximal colon. Left lower quadrant ostomy.
Postsurgical changes with prominent soft tissues and small fluid collection in the presacral soft tissues, soft tissue fluid collection perhaps slightly larger in size in comparison to prior CT. Findings discussed with Dr. Elizondo at approximately 0745
hours on May 24, 2024.
Unclear etiology of discomfort that seems fairly severe with activity.
? related to presacral fibrosis / scarring.
? possible septic arthritis given pain / fevers / etc.
PT evaluation.
Pain control.
Follow for changes in symptoms.
# ABRAM
SCr = 1.4-->1.3-->1.0
Likely secondary to sepsis.
Hyponatremia
# Colon Cancer s/p Colectomy and Colostomy
# Chronic Constipation
CT scan with slow transit / fecalization. No clinical symptoms c/w SBO.
No abdominal pain, N/V, etc. Typical stool output from ostomy.
Continue aggressive bowel regimen including BID Miralax, etc.
Follow for ostomy function / monitor for any new issues or complaints.
# Chronic Anemia
Hgb much improved from prior baseline.
Follow for changes.
#PAF had resolved, was in NSR. Earlier today, while washing up in bathroom, went into a. fib with rvr. Rapid response called, I responded. Requested input from cardio. Was seen by Stevan James shortly thereafter. Increased dose of Metoprolol to 50
mg q6h. Pt currently remains in a.fib, will continue to monitor. Pt very hesitant on taking Eliquis. Long discussion, he wants to think about it
Call placed and discussed with cardio. Rec is to hold off on the 30 day holter and to discuss further when seen in the office
# Chronic Pain Syndrome
# Chronic Opioid Dependence
Continue current pain med regimen and adjust as needed.
PT eval / increase mobility as tolerated.
DVT Prophylaxis: Subcut Heparin
Code Status: Full
reviewed with by phone initially, then after she arrived, met with her to review situation.
extensive visit
Anticipated Discharge: 24 - 48 hours
Subjective/Interval History
-
Date of Service: November 27, 2024
Went into a.fib with rvr
Objective Data
-
Vital Signs:
Vital Signs
Temp Pulse Resp BP Pulse Ox
99.2 F 80 18 124/66 96
11/27/24 15:03 11/27/24 15:03 11/27/24 15:03 11/27/24 15:03 11/27/24 15:03
I&O
11/26/24 11/27/24 11/28/24
06:59 06:59 06:59
Intake Total 1020 / 1020 1420 / 1420
Output Total 1705 / 1705 1590 / 1590
Balance -685 / -685 -170 / -170
Review of Systems
-
History Source: Patient, Family ( in room, many concerns) and Coordinated Provider
Constitutional: Reports Fever (T max 102.5 11/22 at 11:23, afebrile since)
EENT: Reports No Symptoms Reported
Respiratory: Reports No Symptoms
Cardiac: Reports No Symptoms; Denies Palpitations (resolved)
Abdomen/GI: Denies Abdominal Pain or Nausea (resolved)
Physical Exam
-
General: Well Developed, Well Nourished and No Apparent Distress
HEENT: Normocephalic, Atraumatic and Moist Mucous Membranes
Respiratory: Clear to Auscultation; Negative Wheezes, Rales or Rhonchi
Cardiac: Regular Rhythm and S1/S2
GI: Soft, Nontender, Nondistended and Normal Bowel Sounds
Genito-urinary: No Costovertebral Tender and Nephrostomy Tubes (bilateral)
Musculoskeletal: No Clubbing, No Cyanosis and No Edema
Neuro: Awake, Alert and Oriented
[2024-11-27 19:00] VITALS: BP 124/69
[2024-11-27] MEDS: MIRALAX 17 GRAMS PO (20:25)
[2024-11-27] MEDS: ELAVIL 10 MG PO (20:28)
[2024-11-27 23:00] VITALS: BP 146/77
[2024-11-28] MEDS: LOPRESSOR 50 MG PO ×4 (00:07→17:45)
[2024-11-28] MEDS: PERCOCET 5/325 1 TABLET PO ×3 (00:10→23:20)
[2024-11-28 03:00] VITALS: BP 142/78
[2024-11-28] MEDS: ANCEF 10 IV ×3 (05:27→23:45)
[2024-11-28 05:34] VITALS: BMI 26.2
[2024-11-28 07:45] VITALS: BP 141/66
[2024-11-28] MEDS: VISBIOME 2 CAP PO (07:46)
[2024-11-28] MEDS: OXYCONTIN (CONTROLLED RELEASE) 40 MG PO ×2 (07:46→20:20)
[2024-11-28] MEDS: COLACE PO ×2 (07:46→20:19)
[2024-11-28] MEDS: MIRALAX PO ×2 (07:46→20:19)
[2024-11-28] MEDS: PROTONIX 40 MG PO (07:46)
[2024-11-28 08:06] LABS: Blood Urea Nitrogen 24 mg/dl (9-20); Calcium 8.8 mg/dl (8.4-10.2); Carbon Dioxide 27 mmol/L (22-30); Chloride 103 mmol/L (98-107); Estimated Creatinine Clearance 90 ml/min; Glucose 122 mg/dl (70-99); Magnesium 1.7 mg/dl (1.6-2.3); Sodium 138 mmol/L (135-145); eGFR > 60.00
--- NOTE | 2024-11-28 08:12 | W.PN.CD ---
Today's Communication / Plan
-
- Switch to Metoprolol succinate 50 mg BID today
Impression / Plan
-
MSSA bacteremia
- ID involved, felt to be urologic source
Paroxysmal atrial fibrillation
- Now in sinus rhythm. Fast AF with RVR - 180s bpm
- Multiple recurrences.
- Fast rates werre difficult to assess if regular atypical atrial flutter or irregular atrial fibrillation.
- Mildly symptomatic
- Switch to Toprol suc 50 mg BID. continue to use metoprolol tartrate as prn
- CHADSVasc score is 3 (Age, HTN and vascular disease- Aortic dilation)
- Pt declining anticoagulation, I explained the increased stroke risk associated with his AFib given his age/HTN
- Heart rate to 180s bpm - stress test adequate. No ST or t wave changes noted.
- Options of class I and III AAD is ok as well. Without the anticoagulation, would not recommend AAD. Ablation is a good option but needs at least short term anticoagulation.
Aflutter - s/p ablation 2013, w/o recurrence.
HTN
HLD
Aortic dilatation - mild dilation of aortic root (4.3cm) and dilation or ascending aorta (3.7cm).
Hx obstructive uropathy, urology has been involved, he has had several procedures
Subjective:
Back to sinus rhythm now. no active complaints.
TTE (11/23/24):
Normal LV size and function with no regional wall motion abnormalities.
LVEF is 60-65% by visual estimation.
Mild concentric LVH.
Normal right ventricular size and function.
Mild eccentric mitral regurgitation.
Insufficient TR for estimation of PASP.
Dilated aortic root. Sinus of Valsalva measures 4.3 cm.
Compared to prior from May 25, 2024, no significant change.
Physical Exam
Vital Signs/Labs
Vital Signs
Temp Pulse Resp BP Pulse Ox
98.7 F 77 20 140/80 97
11/28/24 03:00 11/28/24 05:27 11/28/24 03:00 11/28/24 05:27 11/28/24 07:45
11/27/24 11/28/24 11/29/24
06:59 06:59 06:59
Actual Weight 90.86 kg 87.589 kg
11/28/24 07:13
Magnesium 1.7 mg/dl (1.6-2.3) 11/28/24 07:13
Physical Exam
Constitutional: No acute distress and Comfortable
EENT: Anicteric and Moist mucous membranes
Cardiovascular: Rhythm & rate is regular, Pedal edema is absent and JVD pressure is normal
Respiratory: Respiratory effort normal, Lungs clear to auscul. and Wheeze Absent
GI: Soft, Non tender and Normal bowel sounds
Neuro/Psych: Alert, Oriented, AO x 3 and Motor deficits absent
Data Reviewed
-
Date of Service: November 28, 2024
[2024-11-28 10:02] LABS: % Basophils 0.2 % (0-2); % Eosinophils 2.4 % (0-6); % Immature Granulocytes 1.1 % (0-0.5); % Monocytes 7.5 % (1.7-9.3); % Neutrophils 70.8 % (42.2-75.2); Absolute Eosinophils 0.3 10^3/uL (0-0.7); Absolute Immature Granulocytes 0.1 10^3/uL (0-0.05); Absolute Lymphocytes 2.2 10^3/uL (1.2-3.4); Absolute Monocytes 0.9 10^3/uL (0.1-0.6); Absolute Neutrophils 8.7 10^3/uL (1.4-6.5); Hematocrit 33.4 % (39.0-52.0); Hemoglobin 10.7 g/dL (13.0-18.0); Mean Corpuscular Hgb 27.6 pg (27.0-31.0); Mean Corpuscular Volume 86.3 fL (80.0-94.0); Mean Platelet Volume 9.6 fL (7.4-10.4); Nucleated Red Blood Cells % 0 % (-); Platelet Count 192 10^3/uL (130-400); Red Blood Cell Count 3.87 10^6/uL (4.70-6.10); Red Cell Dist. Width 15.5 % (11.5-14.5); White Blood Cell Count 12.3 10^3/uL (4.8-10.8)
[2024-11-28 10:28] VITALS: BMI 26.2
[2024-11-28 11:55] VITALS: BP 128/74
--- NOTE | 2024-11-28 12:28 | W.PN.ID1 ---
Date of Service
Date of Service: November 28, 2024
Today's Communication
Continue cefazolin.
Assessment / Plan
# Complicated UTI
.hx obstructive uropathy with bilateral perc nephrostomy tubes ; (right catheter was previously capped)
. 11/22 s/p bilateral perc nephrostomy catheter change, right tube uncapped. Noted to have malodorous urine from right kidney.
# Uncomplicated Staph aureus bacteremia (MSSA), urine source
# Fever resolved
# Leukocytosis - will follow outpt.
# Acute Thrombocytopenia resolved
# Afib/RVR- now in sinus
Plan:
- TTE no gross vege
- Repeat blood cx's neg to date.
- Continue cefazolin 2g IV q8h through 12/09/24.
Weekly CBC/diff, comp.
- midline in place.
- Home IV all set up.
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
A-fib s/p ablation
HTN
Dyslipidemia
Prostate cancer
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
Right hydronephrosis s/p right perc nephrostomy (07/2024)
Rectal CA (1992) s/p XRT and resection, end colostomy
Hx bowel obstruction
Asthma
Prostate CA s/p TURP and XRT
Appendectomy
Chief Complaint
-: Bacteremia
Subjective / Review of Systems
Feels well today.
Vital Signs / Physical Exam
Vital Signs
Vital Signs
Temp Pulse Resp BP Pulse Ox
98.1 F 75 18 141/66 94
11/28/24 11:55 11/28/24 12:13 11/28/24 11:55 11/28/24 12:13 11/28/24 11:55
Physical Exam
Constitutional: No Acute Distress and Comfortable
Eyes: No Conjunctival Hemorrhage and Sclera Anicteric
Cardiovascular: Regular Rate, S1/S2 and Murmur (RUSB)
Pulmonary: Clear
Gastrointestinal: Soft, Non Tender and Non Distended
Genito-Urinary: Clear Urine (Bilateral PERC nephrostomy); Negative CVA Tenderness
Neurological: AO x 3
Lines: Other (Midline no erythema.)
Objective Data
Lab Data
Lab Results
11/28/24 07:13
11/28/24 07:13
ESR 53 mm/hour (0-20) H 11/22/24 08:51
Estimated Creat Clear 90 ml/min 11/28/24 07:13
Lactic Acid 0.7 mmol/L (0.7-2.0) 11/22/24 23:05
Total Bilirubin 1.2 mg/dl (0.2-1.3) 11/23/24 08:43
AST 14 U/L (17-59) L 11/23/24 08:43
ALT 20 U/L (0-50) 11/23/24 08:43
Alkaline Phosphatase 84 U/L (38-126) 11/23/24 08:43
C-Reactive Protein 186.90 mg/L (0.0-10.00) H 11/22/24 08:51
Most recent labs reviewed.
Micro Results:
11/24/24 06:56 Blood Culture - Preliminary
Blood/Venous No Growth in 4 days- Final report to follow
11/24/24 06:06 Blood Culture - Preliminary
Blood/Venous No Growth in 4 days- Final report to follow
11/22/24 10:26 Blood Culture - Preliminary
Blood/Venous S aureus-Methicillin Sensitive
Gram Stain - Preliminary
11/22/24 08:51 Blood Culture - Final
Blood/Venous S aureus-Methicillin Sensitive
Gram Stain - Final
11/21/24 23:01 Urine Culture - Final
Urine
11/22/24 04:57 Urine Culture - Final
Urine
11/22/24 08:47 Influenza Types A & B (PARVEEN) - Final
Nasal Swab Negative for Influenza A & B, NAAT
Negative results must be combined with clinical observations
and patient history.
Nucleic Acid Amplification test (NAAT)performed on the
[employer] platform.
11/22/24 CT a/p: Bilateral nephrostomy catheters seen in position, as detailed above, without renal collecting system dilatation. Some 'fecalized' small bowel suggesting slow transit. Oral contrast only opacifying stomach and nondilated proximal to
mid small bowel. Large volume stool predominantly in the proximal colon. Left lower quadrant ostomy. Postsurgical changes with prominent soft tissues and small fluid collection in the presacral soft tissues, soft tissue fluid collection perhaps
slightly larger in size in comparison to prior CT. Findings discussed with Dr. Elizondo at approximately 0745 hours on May 24, 2024.
Care Review
Plan reviewed with: Physician (Dr. Schuster)
[2024-11-28] MEDS: FLUSH (NSS) 1 FLUSH IV (14:26)
--- NOTE | 2024-11-28 14:35 | PTOTSP ---
Chart reviewed, spoke with patient. Patient reports he has been independent with ambulation and walks in the hallway with his . Patient denies the need for further therapy at this point and anticipates discharge home tomorrow. PT will sign off
at this time; the patient is aware our services are available if needs arise.
[2024-11-28 15:41] VITALS: BP 128/74
--- NOTE | 2024-11-28 16:34 | PTCARENOTE ---
Pt AAO x3, PERALTA well, ambulatory in room. VSS. Telemetry:NSR. On room air- pulse ox 96%, no SOB. And soft, rounded, azalea PO. Colostomy patent small ams BM- self care by patient. Bilat PCN tubes P/I clear yellowurine; dsgs D/I. Rt upper arm
midline IV P/I without sx of infiltration. Resting in bed at resent. Will continue to monitor.
--- NOTE | 2024-11-28 17:45 | W.PN.HOSP.TC ---
Addendum entered and electronically signed by Suman Schuster MD 11/28/24 18:14:
Spoke to Dr. Jackson, confirmed he wanted to transition to Toprol XL 50 mg q12h, from Lopressor 50 q6h, with Toprol to start as of 8PM and stop Lopressor as of now, order placed
Original Note:
Today's Communication/Plan
-
recheck CBC in AM
Assessment / Plan
Assessment / Plan
64y M with PMH significant for prostate cancer and rectal cancer s/p multiple courses of pelvic XRT, presacral soft tissue swelling, chronic L ureteral obstruction and bilateral PCN in place who presented to ED complaining of intermittent fevers
and chills and bilateral groin pain. 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 Fever at home to 103 - 104 degrees. He took Tylenol each night and his fever improved.
Patient denies any cough / SOB, abdominal pain, N/V, etc. No known sick contacts. He has chronic bilateral PCN in place (R is currently capped - L is chronic / permanent). believes that urine from L PCN has been more malodorous.
Fever was 104 at home on DOA and he took Tylenol.
WBC 14.4-->11.3-->9.0-->7.3-->12.3
Blood Cx +Staph Aureus
Ur Cx mixed azeem
Successful fluoroscopically guided exchange of bilateral percutaneous nephrostomy catheters, performed on 11/22
Unclear as to why WBC increased on 11/28. discussed with Dr. Chávez, will recheck 11/29
Patient also complains of bilateral groin pain. Patient states that this pain has been gradually progressive over the past 3 weeks or so.
He admits to some discomfort after walking on the treadmill at the gym 2-3 weeks ago.
He took a trip to [place] which involved a significant amount of walking. His pain became severe at that time and he was confined to bed / wheelchair for much of his trip.
He has continued to have significant discomfort and difficulty ambulating since that time.
No specific fall, injury, trauma, etc.
No radiation of pain into the legs or back.
Patient notes that he just placed on a course of steroids from his PCP for suspected inflammatory process in the groin / hips.
No significant improvement despite steroids. Steroids completed 11/25
Non-Ischemic Myocardial Injury
A/P:
# Probable UTI/Bacteremia
Blood Cx Pos x 2 MSSA
# Sepsis secondary to the above
# Chronic Left Ureteral Obstruction
# Left Percutaneous Nephrostomy
Yes, Sepsis is associated with/due to Percutaneous Nephrostomy Tube.
Patient presents with fever (103 at home), tachycardia, tachypnea, leukocytosis and UA consistent with infection. endorses urine has become foul smelling
urine cultures (2 sets sent, one from L nephrostomy tube, the other from clean catch during urination). mixed azeem
Inf Dis consult appreciated
MSSA
Now on Ancef 2 gms IV q8h
Discussed with Dr. Chávez, length of time on abx as per ID now estimated for [address] [place], who knows patient well, appreciated
Pt had nausea which he relates to Ancef. Zofran did not help, was given Compazine which helped his nausea and he had no side effects (has taken before). Today he did not have any nausea following Ancef
# Bilateral Groin Pain
Patient with pain in bilateral groin c/w hip joint pain.
Worse with standing / weight bearing / ROM of the hips.
No evidence of AVN, etc on CT scan done in the ED.
CT: Bilateral nephrostomy catheters seen in position, as detailed above, without renal collecting system dilatation.
Some 'fecalized' small bowel suggesting slow transit. Oral contrast only opacifying stomach and nondilated proximal to mid small bowel. Large volume stool predominantly in the proximal colon. Left lower quadrant ostomy.
Postsurgical changes with prominent soft tissues and small fluid collection in the presacral soft tissues, soft tissue fluid collection perhaps slightly larger in size in comparison to prior CT. Findings discussed with Dr. Elizondo at approximately 0745
hours on May 24, 2024.
Unclear etiology of discomfort that seems fairly severe with activity.
? related to presacral fibrosis / scarring.
? possible septic arthritis given pain / fevers / etc.
PT evaluation.
Pain control.
Follow for changes in symptoms.
# ABRAM
SCr = 1.4-->1.3-->1.0
Likely secondary to sepsis.
Hyponatremia
# Colon Cancer s/p Colectomy and Colostomy
# Chronic Constipation
CT scan with slow transit / fecalization. No clinical symptoms c/w SBO.
No abdominal pain, N/V, etc. Typical stool output from ostomy.
Continue aggressive bowel regimen including BID Miralax, etc.
Follow for ostomy function / monitor for any new issues or complaints.
# Chronic Anemia
Hgb much improved from prior baseline.
Follow for changes.
#PAF had resolved, was in NSR. , while washing up in bathroom, went into a. fib with rvr. Rapid response called, I responded. Requested input from cardio. Was seen by Stevan James shortly thereafter. Increased dose of Metoprolol to 50 mg q6h. Pt
currently in NSR, reviewed with Dr. Jackson, will continue to monitor with pt now on Toprol XL 50 q12h. Pt very hesitant on taking Eliquis. Long discussion, he wants to think about it
Call placed and discussed with cardio. Rec is to hold off on the 30 day holter and to discuss further when seen in the office
# Chronic Pain Syndrome
# Chronic Opioid Dependence
Continue current pain med regimen and adjust as needed.
PT eval / increase mobility as tolerated.
DVT Prophylaxis: Subcut Heparin
Code Status: Full
reviewed with in room
Anticipated Discharge: Within 24 hours
Subjective/Interval History
-
Date of Service: November 28, 2024
Asking when he is being discharged
Objective Data
-
Labs:
Laboratory Results
11/28/24
07:13
WBC 12.3 H
Hgb 10.7 L
Hct 33.4 L
Plt Count 192 D
Sodium 138
Potassium 4.0
Chloride 103
Carbon Dioxide 27
BUN 24 H
Creatinine 0.9
Glucose 122 H
Calcium 8.8
Vital Signs:
Vital Signs
Temp Pulse Resp BP Pulse Ox
98.9 F 76 18 128/74 96
11/28/24 15:41 11/28/24 15:41 11/28/24 15:41 11/28/24 15:41 11/28/24 16:01
I&O
11/27/24 11/28/24 11/29/24
06:59 06:59 06:59
Intake Total 1420 / 1420 1560 / 1560
Output Total 1590 / 1590 1410 / 1410
Balance -170 / -170 150 / 150
Review of Systems
-
History Source: Patient, Family ( in room, many concerns) and Coordinated Provider
Constitutional: Reports Fever (T max 102.5 11/22 at 11:23, afebrile since)
EENT: Reports No Symptoms Reported
Respiratory: Reports No Symptoms
Cardiac: Reports No Symptoms; Denies Palpitations (resolved)
Abdomen/GI: Denies Abdominal Pain or Nausea (resolved)
Physical Exam
-
General: Well Developed, Well Nourished and No Apparent Distress
HEENT: Normocephalic, Atraumatic and Moist Mucous Membranes
Respiratory: Clear to Auscultation; Negative Wheezes, Rales or Rhonchi
Cardiac: Regular Rhythm and S1/S2
GI: Soft, Nontender, Nondistended and Normal Bowel Sounds
Genito-urinary: No Costovertebral Tender and Nephrostomy Tubes (bilateral)
Musculoskeletal: No Clubbing, No Cyanosis and No Edema
Neuro: Awake, Alert and Oriented
[2024-11-28 19:25] VITALS: BP 133/74
[2024-11-28] MEDS: ELAVIL 10 MG PO (20:20)
[2024-11-28] MEDS: TOPROL XL 50 MG PO (23:20)
[2024-11-28 23:55] VITALS: BP 135/73
[2024-11-29 03:55] VITALS: BP 127/75
[2024-11-29] MEDS: ANCEF 10 IV ×2 (05:34→14:44)
[2024-11-29] MEDS: TYLENOL 650 MG PO (05:41)
[2024-11-29 07:28] LABS: % Basophils 0.2 % (0-2); % Eosinophils 3.7 % (0-6); % Immature Granulocytes 1.3 % (0-0.5); % Lymphocytes 23.5 % (20.5-51.1); % Monocytes 7.6 % (1.7-9.3); % Neutrophils 63.7 % (42.2-75.2); Absolute Eosinophils 0.4 10^3/uL (0-0.7); Absolute Immature Granulocytes 0.1 10^3/uL (0-0.05); Absolute Lymphocytes 2.4 10^3/uL (1.2-3.4); Absolute Monocytes 0.8 10^3/uL (0.1-0.6); Absolute Neutrophils 6.4 10^3/uL (1.4-6.5); Hematocrit 32.3 % (39.0-52.0); Hemoglobin 10.4 g/dL (13.0-18.0); Mean Corp Hgb Conc. 32.2 g/dL (33.0-37.0); Mean Corpuscular Volume 87.1 fL (80.0-94.0); Mean Platelet Volume 9.5 fL (7.4-10.4); Nucleated Red Blood Cells % 0 % (-); Platelet Count 197 10^3/uL (130-400); Red Blood Cell Count 3.71 10^6/uL (4.70-6.10); Red Cell Dist. Width 15.5 % (11.5-14.5); White Blood Cell Count 10.1 10^3/uL (4.8-10.8)
[2024-11-29 07:45] VITALS: BP 137/72
[2024-11-29] MEDS: COLACE PO (08:19)
[2024-11-29] MEDS: MIRALAX PO (08:19)
[2024-11-29] MEDS: PROTONIX 40 MG PO (08:20)
[2024-11-29] MEDS: TOPROL XL 50 MG PO (08:20)
[2024-11-29] MEDS: OXYCONTIN (CONTROLLED RELEASE) 40 MG PO (08:20)
[2024-11-29] MEDS: VISBIOME 2 CAP PO (08:22)
--- NOTE | 2024-11-29 10:29 | W.PN.ID1 ---
Date of Service
Date of Service: November 29, 2024
Today's Communication
Continue cefazolin.
From ID standpoint, can dc home. Awaiting cardiology clearance.
Assessment / Plan
# Complicated UTI
.hx obstructive uropathy with bilateral perc nephrostomy tubes ; (right catheter was previously capped)
. 11/22 s/p bilateral perc nephrostomy catheter change, right tube uncapped. Noted to have malodorous urine from right kidney.
# Uncomplicated Staph aureus bacteremia (MSSA), urine source
# Fever resolved
# Leukocytosis - resolved
# Acute Thrombocytopenia resolved
# Afib/RVR- now in sinus
Plan:
- TTE no gross vege
- Repeat blood cx's neg to date.
- Continue cefazolin 2g IV q8h through 12/09/24.
Weekly CBC/diff, comp.
- midline in place.
- Home IV all set up.
-No need to follow-up with ID. Can follow-up with PCP.
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
A-fib s/p ablation
HTN
Dyslipidemia
Prostate cancer
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
Right hydronephrosis s/p right perc nephrostomy (07/2024)
Rectal CA (1992) s/p XRT and resection, end colostomy
Hx bowel obstruction
Asthma
Prostate CA s/p TURP and XRT
Appendectomy
Chief Complaint
-: Bacteremia
Subjective / Review of Systems
Feels well. Hoping to go home.
Vital Signs / Physical Exam
Vital Signs
Vital Signs
Temp Pulse Resp BP Pulse Ox
98.5 F 78 16 137/72 97
11/29/24 07:45 11/29/24 08:20 11/29/24 07:45 11/29/24 08:20 11/29/24 07:45
Physical Exam
Constitutional: No Acute Distress and Comfortable
Eyes: No Conjunctival Hemorrhage and Sclera Anicteric
Cardiovascular: Regular Rate, S1/S2 and Murmur (RUSB)
Pulmonary: Clear
Gastrointestinal: Soft, Non Tender and Non Distended
Genito-Urinary: Clear Urine (Bilateral PERC nephrostomy); Negative CVA Tenderness
Extremities: Negative Edema
Neurological: AO x 3
Lines: Other (Midline no erythema.)
Objective Data
Lab Data
Lab Results
11/29/24 07:06
11/28/24 07:13
ESR 53 mm/hour (0-20) H 11/22/24 08:51
Estimated Creat Clear 90 ml/min 11/28/24 07:13
Lactic Acid 0.7 mmol/L (0.7-2.0) 11/22/24 23:05
Total Bilirubin 1.2 mg/dl (0.2-1.3) 11/23/24 08:43
AST 14 U/L (17-59) L 11/23/24 08:43
ALT 20 U/L (0-50) 11/23/24 08:43
Alkaline Phosphatase 84 U/L (38-126) 11/23/24 08:43
C-Reactive Protein 186.90 mg/L (0.0-10.00) H 11/22/24 08:51
Most recent labs reviewed.
Micro Results:
11/24/24 06:56 Blood Culture - Final
Blood/Venous No Growth - Final Report
11/24/24 06:06 Blood Culture - Final
Blood/Venous No Growth - Final Report
11/22/24 10:26 Blood Culture - Preliminary
Blood/Venous S aureus-Methicillin Sensitive
Gram Stain - Preliminary
11/22/24 08:51 Blood Culture - Final
Blood/Venous S aureus-Methicillin Sensitive
Gram Stain - Final
11/21/24 23:01 Urine Culture - Final
Urine
11/22/24 04:57 Urine Culture - Final
Urine
11/22/24 08:47 Influenza Types A & B (PARVEEN) - Final
Nasal Swab Negative for Influenza A & B, NAAT
Negative results must be combined with clinical observations
and patient history.
Nucleic Acid Amplification test (NAAT)performed on the
[employer] platform.
11/22/24 CT a/p: Bilateral nephrostomy catheters seen in position, as detailed above, without renal collecting system dilatation. Some 'fecalized' small bowel suggesting slow transit. Oral contrast only opacifying stomach and nondilated proximal to
mid small bowel. Large volume stool predominantly in the proximal colon. Left lower quadrant ostomy. Postsurgical changes with prominent soft tissues and small fluid collection in the presacral soft tissues, soft tissue fluid collection perhaps
slightly larger in size in comparison to prior CT. Findings discussed with Dr. Elizondo at approximately 0745 hours on May 24, 2024.
[2024-11-29 11:33] VITALS: BP 120/75
[2024-11-29] MEDS: PERCOCET 5/325 1 TABLET PO (11:44)
--- NOTE | 2024-11-29 11:58 | W.PN.CD ---
Today's Communication / Plan
-
continue current dose of increased metoprolol succinate with prn tartrate on discharge
I encouraged him to consider DOAC to optimize his stroke risk
ok for discharge, follow up as op
Impression / Plan
-
MSSA bacteremia
- ID involved, felt to be urologic source
Paroxysmal atrial fibrillation
- Now in sinus rhythm. Interimittent Fast AF with RVR - improving from 180s to 140s to 150s bpm
- Multiple recurrences.
- Mildly symptomatic
- Switch to Toprol suc 50 mg BID(started increased dose this am). continue to use metoprolol tartrate as prn---25mg prn q6
- CHADSVasc score is 3 (Age, HTN and vascular disease- Aortic dilation)
- Pt still declining anticoagulation, I explained the increased stroke risk associated with his AFib given his age/HTN
- Options of class I and III AAD is ok as well. Without the anticoagulation, would not recommend AAD. Ablation is a good option but needs at least short term anticoagulation---I again explained all of this to him
Aflutter - s/p ablation 2013, w/o recurrence.
HTN
HLD
Aortic dilatation - mild dilation of aortic root (4.3cm) and dilation or ascending aorta (3.7cm).
Hx obstructive uropathy, urology has been involved, he has had several procedures
Subjective:
Back to sinus rhythm now. no active complaints. Would like to go home
TTE (11/23/24):
Normal LV size and function with no regional wall motion abnormalities.
LVEF is 60-65% by visual estimation.
Mild concentric LVH.
Normal right ventricular size and function.
Mild eccentric mitral regurgitation.
Insufficient TR for estimation of PASP.
Dilated aortic root. Sinus of Valsalva measures 4.3 cm.
Compared to prior from May 25, 2024, no significant change.
Physical Exam
Vital Signs/Labs
Vital Signs
Temp Pulse Resp BP Pulse Ox
98.3 F 90 18 120/75 93
11/29/24 11:33 11/29/24 11:33 11/29/24 11:33 11/29/24 11:33 11/29/24 11:33
11/28/24 11/29/24 11/30/24
06:59 06:59 06:59
Actual Weight 193 lb 1.6 oz
11/29/24 07:06
11/28/24 07:13
Magnesium 1.7 mg/dl (1.6-2.3) 11/28/24 07:13
Physical Exam
Constitutional: No acute distress
Cardiovascular: Rhythm & rate is regular, Pedal edema is absent, JVD pressure is normal, Systolic murmur absent and Diastolic murmur absent
Respiratory: Respiratory effort normal, Lungs clear to auscul., Wheeze Absent, Crackles Absent and Rhonchi Absent
Neuro/Psych: AO x 3
Data Reviewed
-
Date of Service: November 29, 2024
Medical Decision Making: Review of Case with other Provider (Dr Schuster ok to discharge home, )
EKG: Other (tele sinus with intermittent paf with rvr)
Medical Tests (PFT, Pathology etc): Discussed with Family ( at bedside explained the benefits of doac yet again)
--- NOTE | 2024-11-29 14:16 | W.PN.HOSP.TC ---
Today's Communication/Plan
-
dc to home
Assessment / Plan
Assessment / Plan
64y M with PMH significant for prostate cancer and rectal cancer s/p multiple courses of pelvic XRT, presacral soft tissue swelling, chronic L ureteral obstruction and bilateral PCN in place who presented to ED complaining of intermittent fevers
and chills and bilateral groin pain. 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 Fever at home to 103 - 104 degrees. He took Tylenol each night and his fever improved.
Patient denies any cough / SOB, abdominal pain, N/V, etc. No known sick contacts. He has chronic bilateral PCN in place (R is currently capped - L is chronic / permanent). believes that urine from L PCN has been more malodorous.
Fever was 104 at home on DOA and he took Tylenol.
WBC 14.4-->11.3-->9.0-->7.3-->12.3-->10.1
Blood Cx +Staph Aureus
Ur Cx mixed azeem
Successful fluoroscopically guided exchange of bilateral percutaneous nephrostomy catheters, performed on 11/22
Patient also complains of bilateral groin pain. Patient states that this pain has been gradually progressive over the past 3 weeks or so.
He admits to some discomfort after walking on the treadmill at the gym 2-3 weeks ago.
He took a trip to [place] which involved a significant amount of walking. His pain became severe at that time and he was confined to bed / wheelchair for much of his trip.
He has continued to have significant discomfort and difficulty ambulating since that time.
No specific fall, injury, trauma, etc.
No radiation of pain into the legs or back.
Patient notes that he just placed on a course of steroids from his PCP for suspected inflammatory process in the groin / hips.
No significant improvement despite steroids. Steroids completed 11/25. Pain still ongoing
Non-Ischemic Myocardial Injury
A/P:
# Probable UTI/Bacteremia
Blood Cx Pos x 2 MSSA
# Sepsis secondary to the above
# Chronic Left Ureteral Obstruction
# Left Percutaneous Nephrostomy
Yes, Sepsis is associated with/due to Percutaneous Nephrostomy Tube.
Patient presents with fever (103 at home), tachycardia, tachypnea, leukocytosis and UA consistent with infection. endorses urine has become foul smelling
urine cultures (2 sets sent, one from L nephrostomy tube, the other from clean catch during urination). mixed azeem
Inf Dis consult appreciated
MSSA
Now on Ancef 2 gms IV q8h
Discussed with Dr. Chávez, length of time on abx as per ID now estimated for [address] [place], who knows patient well, appreciated
Pt had nausea which he relates to Ancef. Zofran did not help, was given Compazine which helped his nausea and he had no side effects (has taken before). Today he did not have any nausea following Ancef
# Bilateral Groin Pain
Patient with pain in bilateral groin c/w hip joint pain.
Worse with standing / weight bearing / ROM of the hips.
No evidence of AVN, etc on CT scan done in the ED.
CT: Bilateral nephrostomy catheters seen in position, as detailed above, without renal collecting system dilatation.
Some 'fecalized' small bowel suggesting slow transit. Oral contrast only opacifying stomach and nondilated proximal to mid small bowel. Large volume stool predominantly in the proximal colon. Left lower quadrant ostomy.
Postsurgical changes with prominent soft tissues and small fluid collection in the presacral soft tissues, soft tissue fluid collection perhaps slightly larger in size in comparison to prior CT. Findings discussed with Dr. Elizondo at approximately 0745
hours on May 24, 2024.
Unclear etiology of discomfort that seems fairly severe with activity.
? related to presacral fibrosis / scarring.
? possible septic arthritis given pain / fevers / etc.
PT evaluation.
Pain control.
follow up with Dr. Herrera
# ABRAM
SCr = 1.4-->1.3-->1.0
Likely secondary to sepsis.
Hyponatremia
# Colon Cancer s/p Colectomy and Colostomy
# Chronic Constipation
CT scan with slow transit / fecalization. No clinical symptoms c/w SBO.
No abdominal pain, N/V, etc. Typical stool output from ostomy.
Continue aggressive bowel regimen including BID Miralax, etc.
Follow for ostomy function / monitor for any new issues or complaints.
# Chronic Anemia
Hgb much improved from prior baseline.
Follow for changes.
#PAF had resolved, was in NSR. , while washing up in bathroom, went into a. fib with rvr. Rapid response called, I responded. Requested input from cardio. Was seen by Stevan James shortly thereafter. Increased dose of Metoprolol to 50 mg q6h. Pt
currently in NSR, reviewed with Dr. Jackson, will continue to monitor with pt now on Toprol XL 50 q12h. Pt very hesitant on taking Eliquis. Long discussion, he wants to think about it
Call placed and discussed with cardio. Rec is to hold off on the 30 day holter and to discuss further when seen in the office
# Chronic Pain Syndrome
# Chronic Opioid Dependence
Continue current pain med regimen and adjust as needed.
PT eval / increase mobility as tolerated.
DVT Prophylaxis: Subcut Heparin
Code Status: Full
reviewed with in room
dc to home
More than 30 minutes spent in discharge including
Final examination of the patient
Summarizing hospital stay
Instructions for continuing care to all relevant caregivers
Preparation of discharge records, prescriptions, and referral forms
Total time spent (in minutes): 45
Anticipated Discharge: Today
Subjective/Interval History
-
Date of Service: November 29, 2024
Feels well and is anxiously awaiting dc
Objective Data
-
Labs:
Laboratory Results
11/29/24
07:06
WBC 10.1
Hgb 10.4 L
Hct 32.3 L
Plt Count 197
Vital Signs:
Vital Signs
Temp Pulse Resp BP Pulse Ox
98.3 F 90 18 120/75 93
11/29/24 11:33 11/29/24 11:33 11/29/24 11:33 11/29/24 11:33 11/29/24 11:33
I&O
11/28/24 11/29/24 11/30/24
06:59 06:59 06:59
Intake Total 1560 / 1560 1500 / 1500 360 / 360
Output Total 1410 / 1410 900 / 900 400 / 400
Balance 150 / 150 600 / 600 -40 / -40
Review of Systems
-
History Source: Patient, Family ( in room, many concerns) and Coordinated Provider
Constitutional: Reports Fever (T max 102.5 11/22 at 11:23, afebrile since)
EENT: Reports No Symptoms Reported
Respiratory: Reports No Symptoms
Cardiac: Reports No Symptoms; Denies Palpitations (resolved)
Abdomen/GI: Denies Abdominal Pain or Nausea (resolved)
Physical Exam
-
General: Well Developed, Well Nourished and No Apparent Distress
HEENT: Normocephalic, Atraumatic and Moist Mucous Membranes
Respiratory: Clear to Auscultation; Negative Wheezes, Rales or Rhonchi
Cardiac: Regular Rhythm and S1/S2
GI: Soft, Nontender, Nondistended and Normal Bowel Sounds
Genito-urinary: No Costovertebral Tender and Nephrostomy Tubes (bilateral)
Musculoskeletal: No Clubbing, No Cyanosis and No Edema
Neuro: Awake, Alert and Oriented
--- NOTE | 2024-11-29 14:37 | CM ---
MD entered order discharge .
Spoke with Candis and pt.They are ready for discharge.
[facility] for infusion set up as per Marti rep.
Deborah BOTELLO aware of dc and accepted him for for nephrostomy care.
Midline placed information provided to Marti .
Pt for discharge today after afternoon IV antibiotics.
[facility] will delver this evening . Pt to administer IV antibiotics every 8 as ordered in home.
Marti informed pt of out of pocket med cost.
IMM reviewed
PLAN Home with [facility] and Maricel BOTELLO fax [phone]
[2024-11-29 15:42] VITALS: BP 141/74
--- NOTE | 2024-11-29 18:16 | W.DS.TRANS ---
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
-
Discharge Instructions:
Sleep Apnea Risk Low
Discharge Diagnosis/Procedures Bacteremia
Diet Regular
Activity No strenuous activity
Driving Restrictions Not until seen by your Dr
Bathing Restrictions None
Blood Work CBC with diff, CMP on Tuesday's weekly on Tuesday'
s, results to Dr. Chávez
Other Services VN,PT
Instructions:
Stand-Alone Forms:
Changes to Home Medications: Yes
Discharge Medications:
DC Medications w/original date entered in [facility]
albuterol sulfate 90 mcg/actuation aerosol inhaler (Ventolin HFA) 2 puff inhalation R Q6HPRN PRN SOB 08/06/21
oxycodone-acetaminophen 10 mg-325 mg tablet 1 tab PO TID Pain 12/07/22
amitriptyline 10 mg tablet 10 mg PO HS Sleep 05/22/24
ondansetron 8 mg disintegrating tablet 16 mg PO DAILY Gastrointestinal Issue 05/22/24
oxycodone 40 mg tablet,crush resistant,extended release 12 hr (OxyContin) 40 mg PO BID Pain 05/22/24
acetaminophen 325 mg tablet (Tylenol) 650 mg PO Q6HPRN PRN mild pain 11/22/24
lactulose 10 gram/15 mL oral solution 20 g PO Q48H Gastrointestinal Issue 11/22/24
magnesium hydroxide 400 mg/5 mL oral suspension (Dulcolax (magnesium hydroxide)) 400 mg PO DAILYPRN PRN constipation 11/22/24
polyethylene glycol 3350 17 gram oral powder packet (HealthyLax) 17 g PO DAILY Gout 11/22/24
cefazolin 10 gram solution for injection 2 g IV Q8H #10 ea 11/29/24
docusate sodium 100 mg capsule 100 mg PO BID #0 caps 11/29/24
metoprolol succinate 50 mg tablet,extended release 24 hr 50 mg PO BID #60 tabs 11/29/24
metoprolol tartrate 25 mg tablet 25 mg PO DAILY PRN palpitations #30 tabs 11/29/24
pantoprazole 40 mg tablet,delayed release 40 mg PO DAILY #30 tabs 11/29/24
prochlorperazine maleate 5 mg tablet (Compazine) 5 mg PO TID PRN nausea #30 tabs 11/29/24
Home Medication Changes
Toprol XL 50 mg q12h started with Lopressor 25 mg prn palpitations
IV Ancef ordered to complee total of 2 weeks
Compazine prn nausea
Pending Results: No
== END 2024-11-29 16:37 | disposition home health service (06) | DRG 698 ==
LOC: 4 EAST ACU 07:07
PROVIDERS: Nurse Practitioner Gerontology; Physician Assistant; Radiology Diagnostic Radiology; ADMITTING PHYSICIAN Hospitalist; ATTENDING PHYSICIAN Internal Medicine; CONSULT PHYSICIAN Internal Medicine Cardiovascular Disease; CONSULT PHYSICIAN Internal Medicine Infectious Disease; EMERGENCY PHYSICIAN Emergency Medicine; FAMILY PHYSICIAN Family Medicine
PROC: 0T25X0Z Change Drainage Device in Kidney, External Approach (ICD-10-PCS; 2024-11-22)
DX: T83.512A Infection and inflammatory reaction due to nephrostomy catheter, initial encounter (principal); A41.01 Sepsis due to Methicillin susceptible Staphylococcus aureus; F11.20 Opioid dependence, uncomplicated; N17.9 Acute kidney failure, unspecified; N13.6 Pyonephrosis; I47.10 Supraventricular tachycardia, unspecified; E87.1 Hypo-osmolality and hyponatremia; I5A Non-ischemic myocardial injury (non-traumatic); D64.9 Anemia, unspecified; E78.00 Pure hypercholesterolemia, unspecified; F32.A Depression, unspecified; G47.00 Insomnia, unspecified; G89.4 Chronic pain syndrome; I10 Essential (primary) hypertension; K59.09 Other constipation; J45.20 Mild intermittent asthma, uncomplicated; I48.0 Paroxysmal atrial fibrillation; I49.3 Ventricular premature depolarization; M10.9 Gout, unspecified; I77.810 Thoracic aortic ectasia; R10.31 Right lower quadrant pain; R10.32 Left lower quadrant pain; Z79.899 Other long term (current) drug therapy; Z92.3 Personal history of irradiation; Z90.79 Acquired absence of other genital organ(s); Z90.49 Acquired absence of other specified parts of digestive tract; Z85.46 Personal history of malignant neoplasm of prostate; Z85.048 Personal history of other malignant neoplasm of rectum, rectosigmoid junction, and anus
CPT/HCPCS: 50435; 74177; 80048; 80053; 80202; 81003; 81015; 82248; 82962; 83605; 83735; 84484; 85025; 85027; 85652; 86140; 87040; 87086; 87147; 87186; 87205; 87502; 87811; 93005; 93306; 96360; 97162; 97530; 99285; C1769; Q9967

== ENCOUNTER 2025-01-08 07:04 | Day surgery (SDC) | payer OTHER, SELFPAY | END 2025-01-08 10:24 | disposition home or self-care (01) | LOC: CATH 07:04 | PROVIDERS: ATTENDING PHYSICIAN Internal Medicine; FAMILY PHYSICIAN Family Medicine | DX: I48.91 Unspecified atrial fibrillation (principal); I08.3 Combined rheumatic disorders of mitral, aortic and tricuspid valves; I77.810 Thoracic aortic ectasia; I48.0 Paroxysmal atrial fibrillation; I48.92 Unspecified atrial flutter; E78.5 Hyperlipidemia, unspecified; Z79.01 Long term (current) use of anticoagulants; Z79.899 Other long term (current) drug therapy | CPT/HCPCS: 93312; 93320; 93325; 93005 ==

== ENCOUNTER 2025-01-17 11:53 | Day surgery (SDC) | payer OTHER, SELFPAY ==
[2025-01-17] VITALS (15 sets, daily range): BP systolic 101–123; BP diastolic 58–93
[2025-01-17] MEDS: NSS 253 IV (12:58)
[2025-01-17 13:04] LABS: Hemoglobin 10.2 g/dL (13.0-18.0); Mean Corp Hgb Conc. 31.9 g/dL (33.0-37.0); Mean Corpuscular Hgb 28.2 pg (27.0-31.0); Mean Corpuscular Volume 88.4 fL (80.0-94.0); Mean Platelet Volume 9.9 fL (7.4-10.4); Platelet Count 252 10^3/uL (130-400); Red Blood Cell Count 3.62 10^6/uL (4.70-6.10); White Blood Cell Count 11.7 10^3/uL (4.8-10.8)
[2025-01-17 13:33] LABS: Blood Urea Nitrogen 44 mg/dl (9-20); Calcium 9.3 mg/dl (8.4-10.2); Carbon Dioxide 22 mmol/L (22-30); Chloride 109 mmol/L (98-107); Glucose 131 mg/dl (70-99); Potassium 5.2 mmol/L (3.5-5.1); Sodium 140 mmol/L (135-145); eGFR > 60.00
--- NOTE | 2025-01-17 15:13 | ITS.CL.CATH ---
[facility] - Catheterization
Cardiac Catheterization
Procedure Report:
CARDIAC CATHETERIZATION REPORT
Date of Procedure: 01/17/2025
Referring: Dell Rosario M.D., Ph.D.
INDICATION: Severe mitral valve regurgitation, preoperative evaluation.
PROCEDURE:
1. Left heart catheterization.
2. Coronary angiography
A total of 27 minutes of procedural/moderate sedation was utilized. An independent medical staffing coordinator was present to assist with and help manage the patient's level of consciousness and physiologic status.
ACCESS:
1. 6 [place] right radial artery using a modified Seldinger technique delete.
CATHETERS:
1. 4 [place] JR4.
2. 4 [place] JL 3.5.
HEMODYNAMIC DATA
Weight (kg): 84.3
AO (s/d/x, mmHg): 124/71/87
LV (s/x mmHg): 120/19
LEFT VENTRICULOGRAPHY: Not performed.
CORONARY ANGIOGRAPHY
Dominance: Right.
Left Main: Short, trifurcating vessel. There is no coronary artery disease.
LAD: Normal size vessel giving rise to several small diagonals. There is no coronary artery disease.
Ramus: Normal size vessel supplying a significant portion of the anterolateral wall. There is no coronary artery disease.
Circumflex: Large size, nondominant vessel giving rise to 2 obtuse marginals before terminating as a left posterolateral branch. There is no coronary artery disease.
RCA: Large size, dominant vessel with an anterior origin. There is no coronary artery disease.
INTERVENTION(S)
None.
Closure Device: Vascular band for the right radial artery.
Radiation (mGy): 286.78
DAP (cm2.Gy): 18.8089
Fluoroscopy time (minutes): 3.1
CONCLUSIONS
1. Right dominant circulation with no coronary artery disease
2. Moderately elevated filling pressures (LVEDP = 19 mmHg at 84.3 kg).
3. Severe mitral valve regurgitation on echocardiography.
4. Atrial fibrillation.
RECOMMENDATIONS:
1. Expectant management after cardiac catheterization via right radial approach.
2. Limited weight bearing on the right wrist for one week.
3. Continue evaluation for mitral valve repair.
4. Resume therapeutic anticoagulation tonight after hemostasis.
Copy to: Dell Rosario M.D., Ph.D., Fernando Ford M.D., Jackie Toro, D.O.
Homero Wallace DO, FACC, FACP
== END 2025-01-17 18:15 | disposition home or self-care (01) ==
LOC: CATH 11:53
PROVIDERS: ATTENDING PHYSICIAN Internal Medicine Cardiovascular Disease; FAMILY PHYSICIAN Family Medicine; OTHER PHYSICIAN Internal Medicine
DX: I34.0 Nonrheumatic mitral (valve) insufficiency (principal); I48.0 Paroxysmal atrial fibrillation; I48.92 Unspecified atrial flutter; I10 Essential (primary) hypertension; Z79.01 Long term (current) use of anticoagulants; Z79.899 Other long term (current) drug therapy; Z79.891 Long term (current) use of opiate analgesic; Z79.2 Long term (current) use of antibiotics; I12.9 Hypertensive chronic kidney disease with stage 1 through stage 4 chronic kidney disease, or unspecified chronic kidney disease; N18.32 Chronic kidney disease, stage 3b; R73.03 Prediabetes
CPT/HCPCS: 80048; 85027; 93458; 99152; 99153; C1894; Q9967

== ENCOUNTER → 2025-02-04 13:00 | Outpatient (REF) | payer OTHER, SELFPAY | LOC: HWRAD 13:00 | PROVIDERS: ATTENDING PHYSICIAN Thoracic Surgery (Cardiothoracic Vascular Surgery); FAMILY PHYSICIAN Family Medicine; REFERRING PHYSICIAN Internal Medicine | DX: I34.0 Nonrheumatic mitral (valve) insufficiency (principal); Z01.810 Encounter for preprocedural cardiovascular examination | CPT/HCPCS: 71250 ==

== ENCOUNTER → 2025-03-07 13:19 | Outpatient (REF) | payer OTHER, SELFPAY ==
[2025-03-07 14:33] LABS: INR 1.45; PT 18.1 Sec (11.4-14.6)
== END ==
LOC: REG 13:19
PROVIDERS: ATTENDING PHYSICIAN Internal Medicine; FAMILY PHYSICIAN Family Medicine
DX: I48.91 Unspecified atrial fibrillation (principal)
CPT/HCPCS: 36415; 85610

== ENCOUNTER → 2025-04-17 12:41 | Outpatient (REF) | payer OTHER, SELFPAY ==
[2025-04-17 14:59] LABS: INR 1.42; PT 17.9 Sec (11.4-14.6)
== END ==
LOC: REG 12:41
PROVIDERS: ATTENDING PHYSICIAN Internal Medicine; FAMILY PHYSICIAN Family Medicine; OTHER PHYSICIAN Internal Medicine Cardiovascular Disease
DX: I48.0 Paroxysmal atrial fibrillation (principal); Z95.2 Presence of prosthetic heart valve
CPT/HCPCS: 36415; 85610; 93306

== ENCOUNTER → 2025-04-29 14:33 | Outpatient (REF) | payer OTHER, SELFPAY ==
[2025-04-29 15:11] LABS: INR 2.61; PT 28.0 Sec (11.4-14.6)
== END ==
LOC: REG 14:33
PROVIDERS: ATTENDING PHYSICIAN Internal Medicine; FAMILY PHYSICIAN Family Medicine
DX: I48.91 Unspecified atrial fibrillation (principal)
CPT/HCPCS: 36415; 85610

== ENCOUNTER → 2025-05-24 12:44 | Outpatient (REF) | payer OTHER, SELFPAY ==
[2025-05-24 15:31] LABS: Hematocrit 30.3 % (39.0-52.0); Hemoglobin 9.3 g/dL (13.0-18.0); Mean Corp Hgb Conc. 30.7 g/dL (33.0-37.0); Mean Corpuscular Volume 84.9 fL (80.0-94.0); Nucleated Red Blood Cells % 0 % (-); Platelet Count 245 10^3/uL (130-400); Red Cell Dist. Width 18.9 % (11.5-14.5)
[2025-05-24 15:52] LABS: ALT (SGPT) 11 U/L (0-50); AST (SGOT) 16 U/L (17-59); Albumin 3.7 g/dl (3.5-5.0); Alkaline Phosphatase 90 U/L (38-126); Blood Urea Nitrogen 23 mg/dl (9-20); Calcium 8.7 mg/dl (8.4-10.2); Carbon Dioxide 27 mmol/L (22-30); Chloride 106 mmol/L (98-107); Glucose 91 mg/dl (70-99); Potassium 4.1 mmol/L (3.5-5.1); Sodium 139 mmol/L (135-145); Total Protein 7.0 g/dl (6.3-8.2); eGFR > 60.00
== END ==
LOC: HWRAD 12:44
PROVIDERS: ATTENDING PHYSICIAN Family Medicine
DX: R06.02 Shortness of breath (principal); N18.31 Chronic kidney disease, stage 3a; D64.9 Anemia, unspecified; I50.22 Chronic systolic (congestive) heart failure; I48.91 Unspecified atrial fibrillation
CPT/HCPCS: 36415; 71046; 80053; 83880; 85025

== ENCOUNTER → 2025-06-03 14:46 | Outpatient (REF) | payer OTHER, SELFPAY | LOC: HWRAD 14:46 | PROVIDERS: ATTENDING PHYSICIAN Family Medicine | DX: R05.1 Acute cough (principal) | CPT/HCPCS: 71046 ==

== ENCOUNTER → 2025-07-18 12:38 | Outpatient (REF) | payer OTHER, SELFPAY ==
--- NOTE | 2025-07-18 13:47 | CARDSERVDEF ---
Echocardiogram with Definity completed after protocol screening completed. Allergies verified.
Patent IV site:
IV site flushed with 0.9% NaCl pre and post administration.
Diluted bolus method utilized to enhance visualization of ventricular live.
Total volume given: ____ mL
Patient tolerated all procedures well without complications.
== END ==
LOC: RCS 12:38
PROVIDERS: ATTENDING PHYSICIAN Internal Medicine; FAMILY PHYSICIAN Family Medicine; REFERRING PHYSICIAN Internal Medicine Cardiovascular Disease
DX: I42.9 Cardiomyopathy, unspecified (principal)
CPT/HCPCS: 93306

== ENCOUNTER → 2025-07-23 13:53 | Outpatient (REF) | payer OTHER, SELFPAY | LOC: RAD 13:53 | PROVIDERS: ATTENDING PHYSICIAN Internal Medicine; FAMILY PHYSICIAN Family Medicine | DX: I48.92 Unspecified atrial flutter (principal) | CPT/HCPCS: 93005 ==

== ENCOUNTER 2025-07-25 16:51 | Emergency (ER) | payer OTHER, SELFPAY ==
[2025-07-25 16:59] VITALS: BP 127/78
--- NOTE | 2025-07-25 18:11 | ED.GENMED ---
History of Present Illness
General
Chief Complaint: Fall
Time Seen by Provider: 07/25/25 17:46
History of Present Illness
History of Present Illness:
Patient is a 65-year-old man presenting to the emergency department after a mechanical fall. Patient does have history of A-fib on Eliquis. He states that [place] the mall on [place] with his foot. He lost his balance and fell
hitting his head. He did not lose consciousness. He denies any pain. He did develop a small cut to the right side of his face. No headache. No nausea or vomiting. No numbness tingling. No weakness
Past History
Past History
ED Past Medical History: Asthma, Cancer (Colorectal CA, Prostate CA), HTN, Hypercholesterolemia and Other (Urinary retention, Self caths)
ED Past Surgical History: Appendectomy, Bowel resection (1993, Dr. Covarrubias at [facility]) and Other (Colostomy)
Social History
Tobacco: Non-smoker
Alcohol: Occasional
Drug: None
Personal:
Living: with family
Phy Exam
Physical Exam
Physical Exam:
GENERAL: no acute distress
HEENT: Small superficial linear laceration to the right cheekbone about 2 cm but very superficial, mild periorbital ecchymosis extraocular muscles intact, no signs of entrapment, dentition intact, no other obvious trauma
NECK: no midline tenderness, normal range of motion, no other obvious trauma
BACK: no midline tenderness, no other obvious trauma
CHEST: no tenderness, no flail segment, no subcutaneous emphysema, no other obvious trauma
LUNGS: clear to auscultation bilaterally
CARDIOVASCULAR: regular rate and rhythm
ABDOMEN: soft, non-tender, no masses, no other obvious trauma
PELVIS: stable, no obvious injury
EXTREMITIES: moving all extremities, distal pulses intact, no other obvious trauma
NEUROLOGIC: awake, alert x 3, no focal deficits
Course
Orders/Labs/Results
Orders:
Orders
07/25/25 17:43
CT Head W/o Iv Contrast Urgent
Comment:
Reason For Exam: fall+thinners
07/25/25 17:46
CT Cervical Spine W/o Iv Contr Urgent
Comment:
Reason For Exam: fall
Vital Signs
Initial and Last Documented VS:
Initial Vital Signs
Temp Pulse Resp BP Pulse Ox
98.6 F 81 18 127/78 100
07/25/25 16:59 07/25/25 16:59 07/25/25 16:59 07/25/25 16:59 07/25/25 16:59
Last Documented Vital Signs
Temp Pulse Resp BP Pulse Ox
98.6 F 81 18 127/78 100
07/25/25 16:59 07/25/25 16:59 07/25/25 16:59 07/25/25 16:59 07/25/25 18:19
MDM/Problems Addressed
Differential Diagnosis Includes:
Patient is a 65-year-old man with a mechanical fall on [facility] with head strike. On arrival vitals unremarkable and exam does show small superficial laceration to the right cheek. No neurodeficits. Bleeding is well-controlled. Given thinners
plus head strike concern for traumatic intracranial injury. Will obtain CT scan of the head and neck. Patient is up-to-date on his tetanus. I did irrigate wound and given how superficial it is no need for closure.
*Pulse Oximetry
SaO2: 100
Oxygen Mode of Delivery: Room air
Patient hypoxic: no
*Critical Care Note
Total Time (30-74mins, 75-104mins- exclusive of procedures): Not Applicable
Update Note
Update Note:
CT scan of the head per my interpretation with no obvious hemorrhage. Per the official read negative for acute abnormality. CT C-spine negative. Will discharge patient at this time
ED Attending Note
-
Portions of this chart may have been created with voice recognition software.� Occasional wrong word or��sound alike� substitutions may have occurred due to the inherent limitations of voice recognition software.
Discharge Plan
Departure
Patient Disposition: Home (Routine Discharge)
Date of Disposition: 07/25/25
Time of Disposition: 20:02
Patient with high blood pressure during this ER visit?: No
Discharge Problem:
Fall
Instructions: Wound Care (DC)
Prescriptions:
No Action
oxycodone-acetaminophen 10-325 mg Tablet
1 tab PO TID
Patient Comments:
05/22/24: last filled 05/12/24 for 90 tablets over 30 days
oxycodone [OxyContin] 40 mg Tablet,Oral Only,Ext.Rel.12 Hr
40 mg PO BID
Patient Comments:
05/22/24: last filled 05/13/24 for 60 tablets over 30 days
ondansetron 8 mg Tablet,Disintegrating
16 mg PO DAILY
amitriptyline 10 mg Tablet
10 mg PO HS
lactulose 10 gram/15 mL Solution
20 g PO Q48H
polyethylene glycol 3350 [HealthyLax] 17 gram powder in packet
17 g PO DAILY
metoprolol succinate 50 mg Tablet Extended Release 24 Hr
50 mg PO BID Qty: 60 0RF
prochlorperazine maleate [Compazine] 5 mg tablet
5 mg PO TID PRN (Reason: nausea) Qty: 30 3RF
metoprolol tartrate 25 mg tablet
25 mg PO DAILY PRN (Reason: palpitations) Qty: 30 0RF
apixaban 5 mg Tablet
5 mg PO BID
diltiazem HCl 120 mg Capsule,Ext.Rel 24h Degradable
120 mg PO DAILY
Multivitamin 50 Plus Tablet
1 tab PO DAILY
cholecalciferol (vitamin D3) [Vitamin D3] 50 mcg (2,000 unit) Tablet
50 mcg PO DAILY
Dulcolax (magnesium hydroxide) 1,200 mg Tablet,Chewable
1,200 mg PO PRN PRN (Reason: constipation)
Referrals:
Jackie Toro DO [Family Provider, Family Practice]
Activity Restrictions/Additional Instructions:
Thank You for choosing [facility].
It was a pleasure meeting you and taking part in your care.
You were seen in the Emergency Department today for a fall. While you were here we performed CT scan, which was reassuring.
We would like for you to follow up with your primary care physician for further evaluation. If you experience fever, worsening of your symptoms, or develop any other new or concerning symptoms, please return to the Emergency Department immediately.
Please see the attached sheet for additional information.
Interventions
Interventions:
*General Assessment Last Done: 07/25/25 17:30
*Neglect/Abuse Screening Last Done: 07/25/25 17:30
*ED COVID-19 Vaccine History Last Done: 07/25/25 17:30
*ED Influenza Vaccine History Last Done: 07/25/25 17:30
*Risk Screen - Suicide (C-SSRS) Last Done: 07/25/25 16:59
ED-Musculoskeletal Assessment Last Done: 07/25/25 17:30
ED- Neurological Assessment Last Done: 07/25/25 17:30
ED-Skin Assessment Last Done: 07/25/25 17:30
Discharge Date and Time
Print Language: LATVIAN
[2025-07-25 20:25] VITALS: BP 125/55
== END 2025-07-25 20:25 | disposition home or self-care (01) ==
LOC: EMR 16:51
PROVIDERS: EMERGENCY PHYSICIAN Student in an Organized Health Care Education/Training Program; FAMILY PHYSICIAN Family Medicine
DX: S01.411A Laceration without foreign body of right cheek and temporomandibular area, initial encounter (principal); W18.39XA Other fall on same level, initial encounter; E78.00 Pure hypercholesterolemia, unspecified; I10 Essential (primary) hypertension; I48.91 Unspecified atrial fibrillation; J45.909 Unspecified asthma, uncomplicated; Z79.01 Long term (current) use of anticoagulants
CPT/HCPCS: 99284; 70450; 72125